=== PATIENT | male | born 1970 | race Two or more races ===

== ENCOUNTER → 2016-04-20 | Outpatient (CLI) | payer MEDICAID ==
[~2016-04-20] MED LIST: ADVIL200 MG PO; ALDACTONE25 MG PO; ALEVE220 MG PO; ATIVAN 1 MG1 MG PO; BACTRIM 400-801 EACH PO; BUMEX1 MG PO; CALCITRATE + V1 EACH PO; CELLCEPT500 MG PO; CIPRO500 MG PO; CITRACAL950 MG PO; COLACE100 MG PO; COREG6.25 MG PO; DELTASONE5 MG PO; DULCOLAX5 MG PO; ENULOSE UD L30 ML/EA PO; HYDRODIURIL25 MG PO; INDERAL20 MG PO; K-TAB ER20 MEQ PO; LASIX20 MG PO; LASIX40 MG PO; LIDOCAINE 5% PATCH TOP; METOCLOPRAMIDE H5 MG PO; MIRALAX PO527 GM/BOT PO; NORVASC10 MG PO; NYSTATIN100000 UNI PO; OSCAL500 MG PO; OXYCODONE HCL5 MG PO; PERCOCET 5-3251 EACH PO; PROGRAF 1MG CAPS1 MG PO; PROGRAF5 MG PO; PROTONIX40 MG PO; TUMS REGULAR ST1 TAB PO; TYLENOL EXTRA500 MG PO; VANCOCIN HCL125 MG PO; ZOFRAN4 MG PO; ZOVIRAX400 MG PO
== END | disposition disaster alternative care site (69) ==
LOC: GAMB 09:54
DX: R41.82 Altered mental status, unspecified (principal); K76.9 Liver disease, unspecified; R18.8 Other ascites; R17 Unspecified jaundice; R60.0 Localized edema
CPT/HCPCS: A0425; A0427; J3411

== ENCOUNTER 2016-05-19 05:08 | Inpatient (IN) | payer MEDICAID ==
[~2016-05-19] VITALS: Ht 182.9 cm; Wt 89.1 kg
--- NOTE | ~2016-05-19 | HP ---
PATIENT'S NAME: STACEY DAVID [facility] AGE: 45 Y [address] ROOM: [place] [address] [place] [facility] [place] DATE: 05/19/2016 History & Physical DISCHARGE DATE: FAMILY PHYSICIAN: Onesimo Castellon MD ATTENDING PHYSICIAN: HOMA BAÑUELOS DATE OF SERVICE: CHIEF COMPLAINT: Abdominal pain and increased swelling. HISTORY OF PRESENT ILLNESS: A 45-year-old gentleman with a past medical history of end-stage liver disease secondary to hepatitis C, treated in the past with Elvis, status post TIPS procedure, who gets multiple paracentesis for ascites, presented to the emergency department this morning with back pain which he states it is in the lumbar region and describes that he gets it whenever he is having more abdominal distention. He does state that he had dull abdominal pain, not associated with any fever or chills. He denied having any shortness of breath, any chest pain, any burning on urination. He did complain that he had not moved his bowels for last 3 days now despite being on lactulose. He did note that he got 2 units of transfusions of packed red blood cells on Thursday for low hemoglobin level. I was not able to verify these records. He said it was done in the recovery room. He denied having any hematemesis or dark tarry stools in the last couple of days. REVIEW OF SYSTEMS: All other systems reviewed and were negative except what is mentioned in the HPI. PAST MEDICAL HISTORY: 1. Cirrhosis. 2. End-stage liver disease. 3. Hepatitis C, treated. 4. Esophageal varices. 5. History of hepatic encephalopathy. MEDICATIONS: Being reconciled right now. ALLERGIES: THE PATIENT IS ALLERGIC TO HEPARIN, CAUSES THROMBOCYTOPENIA. SOCIAL HISTORY: Former alcohol, cocaine, and marijuana user. No ongoing toxic habits. PATIENT'S NAME: JOANN [facility] AGE: 45 Y [address] ROOM: [place] [id number] [place] [facility] [place] DATE: 05/19/2016 History & Physical DISCHARGE DATE: FAMILY PHYSICIAN: Onesimo Castellon MD ATTENDING PHYSICIAN: HOMA BAÑUELOS FAMILY HISTORY: Mother had cardiovascular disease. Father had high blood pressure. PAST SURGICAL HISTORY: Status post TIPS. PHYSICAL EXAMINATION: VITAL SIGNS: 110/67, 16, afebrile, 72. GENERAL: No acute distress. Alert and oriented x3. HEENT: Head atraumatic, normocephalic. Eyes, nonicteric. No pallor. Oropharynx, moist mucous membranes. CARDIOVASCULAR: S1 and S2. No murmurs, gallops, or rubs. LUNGS: Clear to auscultation bilaterally. ABDOMEN: Soft, distended, and nontender. Bowel sounds are present. Shifting dullness as well as fluid thrill noted. EXTREMITIES: Did reveal +1 extremity edema. NEUROLOGIC: Cranial nerves 2 through 12 intact. No motor or sensory deficits. PSYCHIATRIC: Normal affect, mood, and speech. LABORATORY DATA: Lab work done in the emergency department revealed a hemoglobin of 6.9, WBC count of 6.8, and platelets of 114. BUN 16, creatinine 0.9, sodium 130, potassium 4.1, chloride 100, bicarb of 19, and calcium 7.4. AST 69, ALT 53, alkaline phosphatase is 93, and total bilirubin is 2.6. INR is 1.3 today. ASSESSMENT AND PLAN: 1. Ascites. 2. Decompensated liver disease. 3. Cirrhosis secondary to hepatitis C. 4. Hyponatremia. 5. Hypertension. 6. History of hepatic encephalopathy. PLAN: We are going to admit this patient to [facility]. We already did paracentesis with draining of 5200 mL of clear straw-colored fluid, that have been sent to the lab for lab work. He has been started on albumin 50 g 1-time dose as well as Rocephin for history of spontaneous bacterial peritonitis. We will repeat H and H to ensure stabilization of hemoglobin. Continue lactulose to titrate bowel movements 2-3. SCDs for DVT prophylaxis. Low-sodium diet. Restart home medications once reconciled. The patient is full code. PATIENT'S NAME: STACEY DAVID [facility] AGE: 45 Y [address] ROOM: [address] [address] [place] [facility] [place] DATE: 05/19/2016 History & Physical DISCHARGE DATE: FAMILY PHYSICIAN: Onesimo Castellon MD ATTENDING PHYSICIAN: HOMA BAÑUELOS MD AKANKSHA SÁNCHEZ/carlo /[id number] D: [id number] T: [id number] HISTORY & PHYSICAL
--- NOTE | ~2016-05-19 | ER ---
PATIENT'S NAME: STACEY DAVID [facility] AGE: 45 Y [address] ROOM: [address] [address] LOCATION: [facility] [place] ADMIT DATE: 05/19/2016 ER/Outpatient Report DISCHARGE DATE: FAMILY PHYSICIAN: Onesimo Castellon MD ATTENDING PHYSICIAN: HOMA MCDUFFIE ADDENDUM: The patient was initially seen and evaluated by Dr. Dailey, please see his dictation for complete details of the HPI and full physical exam. I briefly examined the patient, reviewed the history with him. He has been having worsening abdominal pain since he received 2 units of blood on Thursday for anemia. He has a history of ascites secondary to cirrhosis. He states he has been taking his lactulose. He has been vomiting a little blood and he has had decreased appetite. The patient's labs have returned with an LDH of 317, lipase of 165, hem-occult positive. Sodium of 130, potassium 4.1, chloride of 100, CO2 is 19, BUN is 16, creatinine 0.9. GFR is greater than 60. LFTs; total bilirubin of 2.6, alkaline phosphatase of 9.3, AST is 69, ALT of 53, WBCs of 6.8, hemoglobin 6.9, and platelets of 114. INR is 1.3. ASSESSMENT: The patient has ascites based on bedside exam and ultrasound. He also has acute blood loss versus hemolytic anemia. He was given morphine for pain via IV. Based on his multiple active issues, apparent hypovolemia with what appears to be symptomatic anemia and need for paracentesis, we will admit him to the hospital to facilitate further workup of the acute anemia and further stabilization of that in addition to paracentesis. The patient will be admitted to Dr. Mcduffie for those procedures. Please refer to his dictation for further information regarding the patient's course of care. He was otherwise stable and admitted without further issue. MD JORGE WOLFE/carlo /[id number] d: 05/19/16 1301 t: 05/26/16 2342, OUTPATIENT REPORT
--- NOTE | ~2016-05-19 | DS ---
PATIENT'S NAME: STACEY DAVID [facility] AGE: 45 Y [address] ROOM: [address] [address] [place]: [facility] [place] ADMIT DATE: 05/19/2016 Discharge Summary DISCHARGE DATE: 05/21/2016 FAMILY PHYSICIAN: Onesimo Castellon MD ATTENDING PHYSICIAN: Nicole Guzman CONSULTING PHYSICIAN: Dr. Jeter. DISCHARGE DIAGNOSES: 1. End-stage liver disease with ascites. 2. 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 3. Vaqmf-vv-mpsdcdf blood loss. 4. History of esophageal varices. 5. Loose stools. DISCHARGE MEDICATIONS: 1. Rocephin 1 g IV daily. 2. Lasix 40 mg p.o. b.i.d. 3. Lactulose 30 mL p.o. q.6 h. 4. Protonix 40 mg p.o. daily. 5. Potassium chloride 20 mEq p.o. daily. 6. Inderal 20 mg p.o. daily. 7. Spironolactone 200 mg p.o. daily. 8. Acetaminophen 1000 mg p.o. q.6 h. p.r.n. pain. 9. Ultram 50 mg p.o. q.6 h. p.r.n. pain. PROCEDURES: The patient underwent abdominal paracentesis on 2 separate occasions. First on 05/19/2016 when 5200 mL of clear straw-colored fluid was removed and again on 05/20/2016 when 3700 mL of dark carlos manuel fluid was aspirated. RADIOLOGIC DATA: The patient did undergo a hepatic duplex TIPS evaluation ultrasound on 05/19/2016, this did show at the distal end of the TIPS shunt where it joins the hepatic vein, velocities were elevated as high as 350 cm/s, consistent with stenosis. BLOOD PRODUCTS ADMINISTERED: The patient was transfused with 3 packed RBCs on 05/19/2016. PERTINENT LABORATORY DATA: The patient's hemoglobin upon admission was 6.9, this trended down to 5.1, at which 3 units of packed RBCs were transfused. On the day of transfer, the patient's hemoglobin was 8.2. Platelets upon admission were 114 and dropped to 46 on 05/20/2016. HOSPITAL COURSE: Please refer to the admitting H and P by Dr. Mcduffie for more detailed outline. The patient was admitted to the Medical/Surgical Unit after PATIENT'S NAME: STACEY DAVID [facility] AGE: 45 Y [address] ROOM: [id number] [place], [place] [address] LOCATION: [facility] [place] ADMIT DATE: 05/19/2016 Discharge Summary DISCHARGE DATE: 05/21/2016 FAMILY PHYSICIAN: Onesimo Castellon MD ATTENDING PHYSICIAN: Nicole Guzman undergoing a paracentesis in the ER. He was started on Rocephin for coverage for spontaneous bacterial peritonitis. Hemoglobins were monitored as stated above. Lactulose was continued to try to titrate bowel movements. The patient was placed on sequential compression devices for DVT prophylaxis. The patient's peritoneal fluid had showed no growth at 2 days. Bacteria not observed in the Gram stain. The patient had relief following the initial paracentesis in the ER. The following morning, the patient complained of feeling taunt and distended again. The patient had reaccumulation of his ascites quite quickly. At that point, GI was on-board and recommended the ultrasound to monitor for the TIPS procedure. This showed the stenosis. The patient underwent a repeat paracentesis for palliation of his discomfort. The patient also had transfusion of 3 packed RBCs. Arrangements were made for the patient to be transferred to [facility] to be evaluated by the hepatic team there and for consideration of a revision of his TIPS procedure. The patient was unable to be transferred on 05/20/2016 unfortunately due to bed shortages. The patient was able to be transferred on 05/21/2016. The receiving physician Dr. Segundo graciously accepted the patient. We will send along the appropriate records. The patient was transferred via ambulance on 05/21/2016. The patient was hemodynamically stable at the time of transfer. Discharge of this patient took greater than 30 minutes and took phone calls for coordination of cares by multiple disciplinary team. DAVIS CASTELLANO PA-C FOR MD JANETTE SHI/carlo /[id number] d: 05/22/16 0121 t: 05/26/16 1631, DISCHARGE SUMMARY
--- NOTE | ~2016-05-19 | CON ---
PATIENT'S NAME: STACEY DAVID [facility] AGE: 45 Y [address] ROOM: [address] [address] LOCATION: [facility] [place] ADMIT DATE: 05/19/2016 Consultation DISCHARGE DATE: FAMILY PHYSICIAN: Onesimo Castellon MD ATTENDING PHYSICIAN: HOMA BAÑUELOS DATE OF CONSULTATION: 05/19/2016 REFERRING PHYSICIAN: Nicole Guzman MD REASON FOR CONSULTATION: End-stage liver disease, cirrhosis, and ascites. HISTORY OF PRESENT ILLNESS: This is a pleasant, 45-year-old male with a past medical history of end-stage liver disease secondary to hepatitis C, treated in the past with Harvoni. He also underwent a TIPS procedure in 2014. Most recently, the patient has been seen multiple times in the emergency room as well as inpatient for increasing ascites. The patient is scheduled for liver transplant evaluation, per his recollection, after insurance issues have been sorted out. The patient again was seen in the emergency room with significant pain in his back as well as his lumbar region and abdominal distention. He does state that he has a dull abdominal pain with no associated fever or chills. He denied any shortness of breath or chest pain. He did state that he has been compliant on his medications, specifically lactulose, though has not had a bowel movement for the past 3 days. The patient recently was seen in our clinic and was found to have a hemoglobin of 5.1. Two units of packed red blood cells were given on Thursday. At that time, he denied any hematemesis or dark, tarry, or melenic stool. On admission, the patient's hemoglobin was 6.9 with a hematocrit of 20.8. The patient denies any current chest pain, chest pressure, or shortness of breath. While in the emergency room, he did undergo a paracentesis with 5200 mL of fluid removed. PAST MEDICAL HISTORY: End-stage liver disease; liver cirrhosis; hepatitis C, treated; history of esophageal varices; and history of hepatic encephalopathy. PAST SURGICAL HISTORY: TIPS procedure in 2013. The patient recently underwent an upper endoscopy on April 23, 2016. At that time, the patient was found to have large varices in the mid and distal esophagus with no high-risk stigmata. Proximal esophagus was normal. Esophageal variceal banding was not completed. 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 SOCIAL HISTORY: The patient is a former alcohol, cocaine, and marijuana user. He denies any ongoing toxic habits. The patient previously did have hepatitis C though and PATIENT'S NAME: STACEY DAVID [facility] AGE: 45 Y [address] ROOM: [place] [address] LOCATION: [facility] [place] ADMIT DATE: 05/19/2016 Consultation DISCHARGE DATE: FAMILY PHYSICIAN: Onesimo Castellon MD ATTENDING PHYSICIAN: HOMA BAÑUELOS has completed a round of interferon as well as Harvoni. FAMILY HISTORY: The patient's mother had cardiovascular disease. The patient's father had high blood pressure. ALLERGIES: HEPARIN CAUSES THROMBOCYTOPENIA. CURRENT MEDICATIONS: Please refer to the medication administration record. Significant home medications to include: 1. Spironolactone 200 mg daily. 2. Lasix 80 mg daily. 3. Prophylactic ciprofloxacin 500 mg daily. 4. Lactulose 30 mL 4 times daily. REVIEW OF SYSTEMS: A 10-point review of systems was completed, all were negative except for those identified in the History of Present Illness. PHYSICAL EXAMINATION: GENERAL: A pleasant, 45-year-old male who appears to be in no acute distress. VITAL SIGNS: Temperature 98.5, pulse of 80, respirations of 18, blood pressure 99/58, and oxygen saturation is 96% on room air. SKIN: [place], warm, and dry. No jaundice. HEENT: Head is normocephalic and atraumatic. Pupils are equal, round, and reactive to light. Sclerae are clear, nonicteric. Oral mucosa is pink and moist. No thyromegaly. NECK: Soft and supple. CARDIOVASCULAR: Regular. Normal S1 and S2. RESPIRATORY: Respirations even and unlabored. Lungs clear to auscultation. ABDOMEN: Status post paracentesis. Soft, round, nontender, and nondistended. Bowel sounds positive x4 quadrants. MUSCULOSKELETAL: No muscle weakness or atrophy. EXTREMITIES: No clubbing or cyanosis. 1+ trace edema noted to bilateral lower extremities. NEUROLOGICAL: Grossly nonfocal. Negative for flap. LABORATORY AND DIAGNOSTIC DATA: White blood cell count of 6.8, hemoglobin of 6.9, and hematocrit of 20.8. The patient did have a recheck of his hemoglobin today with a decrease to 5.1 and hematocrit of 15.7. Platelets are 114. Chemistry panel includes a glucose of 89, BUN of 16, creatinine 0.9, sodium 130, potassium of 4.1, chloride of 100, and CO2 of 19. Albumin of 2.0. AST of 69, ALT of 53, and alkaline PATIENT'S NAME: STACEY DAVID [facility] AGE: 45 Y [address] ROOM: [address] [address] LOCATION: [facility] [place] ADMIT DATE: 05/19/2016 Consultation DISCHARGE DATE: FAMILY PHYSICIAN: Onesimo Castellon MD ATTENDING PHYSICIAN: HOMA BAÑUELOS A phosphatase of 93. Total bilirubin of 2.6. Prothrombin time 14.0, INR is 1.3, and PTT of 34. ASSESSMENT AND PLAN: Again, this is a pleasant, 45-year-old male who is well known to our Gastroenterology Services with end-stage liver disease secondary to previous alcoholic as well as hepatitis C. the patient also is status post TIPS procedure. 1. Anemia. The patient recently was seen in our clinic with a hemoglobin of 5.1. The patient was transfused 2 units of blood 3 days ago. The patient presented to the emergency room with an acute drop of his hemoglobin to 5.1. He will be receiving 2 units of packed red blood cells. The patient also recently underwent an upper endoscopy that did show large esophageal varices. An upper endoscopy may be warranted, though this is likely related to acute blood loss from his gastric antral vascular ectasias. 2. End-stage liver disease. The patient will be placed on a 2-g sodium diet. Continued monitoring of his laboratory is warranted. The patient's MELD sodium score is 19 with a MELD of 13. The patient will be continued on his diuretics. 3. Ascites. The patient is status post paracentesis with 5200 mL drained off while being evaluated in the emergency room. We will also be ordering an abdominal ultrasound with Dopplers for verification of TIPS patency. The patient again will be continued on his diuretics and monitored closely. Further recommendations to be given status post TIPS procedure of whether an upper endoscopy is warranted at this time versus interventional radiology evaluation of the TIPS shunt. Thank you for this consult and allowing us to participate in the care of this patient. We will continue to monitor, evaluate, and treat as appropriate. ALAYNA GARCIA APRN FOR LACEY WAHL MD MMF/modl /[id number] d: 05/20/16 1412 t: 05/23/16 1140, CONSULTATION REPORT
--- NOTE | ~2016-05-19 | ER ---
PATIENT'S NAME: [facility]AS [facility] AGE: 45 Y [address] ROOM: [address] [address] [place] [facility] [place]MIT DATE: 05/19/2016 ER/Outpatient Report DISCHARGE DATE: 05/21/2016 FAMILY PHYSICIAN: Onesimo Castellon MD ATTENDING PHYSICIAN: Ivana Mcduffie Time of Arrival: 0522 hours. Time of Evaluation: 0533 hours. CHIEF COMPLAINT: Ascites. HISTORY OF PRESENT ILLNESS: The patient is a 45-year-old male with history of end-stage liver disease who presents to the emergency department today with ascites. He reports that he was supposed to make an appointment with Dr. Lao to be seen for being tapped regularly. However, he was unable to because he was too sick to do it. He presents that he has had some increased weakness today. He did receive 2 units of hemoglobin on Thursday. The patient denies any fevers or chills. No nausea or vomiting. No diarrhea or constipation. Denies any urinary frequency, urgency, or painful urination. PAST MEDICAL HISTORY: End-stage liver disease; cirrhosis; hepatitis C, treated; esophageal varices; history of hepatic encephalopathy. PAST SURGICAL HISTORY: TIPS procedure in 2013, recent upper endoscopy 04/23/2016. He was found to have a large varices in the mid and distal esophagus. SOCIAL HISTORY: The patient has a history of former alcohol, cocaine, and marijuana use. FAMILY HISTORY: Cardiovascular disease. Father with high blood pressure. ALLERGIES: HEPARIN, WHICH CAUSES THROMBOCYTOPENIA. MEDICATIONS: Please see list. REVIEW OF SYSTEMS: All systems are reviewed by myself and are negative with the exception of those discussed in HPI and past medical history. PHYSICAL EXAMINATION: PATIENT'S NAME: [facility] AGE: 45 Y [address] ROOM: [address] [address] [place] [facility] [place] ADMIT DATE: 05/19/2016 ER/Outpatient Report DISCHARGE DATE: 05/21/2016 FAMILY PHYSICIAN: Onesimo Castellon MD ATTENDING PHYSICIAN: Ivana Mcduffie VITAL SIGNS: Weight 95.6 kg, blood pressure 126/69, pulse 88, respiratory rate 19, temperature 97.6, oxygen saturation 99% on room air. GENERAL: The patient is a 45-year-old male, who appears in stated age, in no acute distress. HEENT: Normocephalic. Conjunctivae are pale. NECK: Supple. There is no nuchal rigidity. CARDIOVASCULAR: Regular rate and rhythm. No murmurs, rubs, or gallops. LUNGS: Clear to auscultation bilaterally. No wheezes, rales, or rhonchi. ABDOMEN: Distended with fluid wave. Positive bowel sounds. Mild diffuse tenderness to palpation. MUSCULOSKELETAL: The patient ambulates in the room. Moves all 4 extremities. SKIN: Warm and dry. LABORATORY DATA AND X-RAYS: Pending at the time of transfer of care. IMPRESSION: 1. Ascites with history of end-stage renal disease. 2. Please see Dr. Vallecillo's dictation. EMERGENCY DEPARTMENT COURSE: The patient was brought back to the examination room. He was seen and evaluated by myself. IV is established. Laboratory analysis and imaging are obtained and are pending at the time of transfer of care. I did discuss the case with Dr. Vallecillo. He will follow up on laboratory analysis and disposition. DISPOSITION/FOLLOW-UP: Per Dr. Vallecillo. DO CAROLYNE CLAY/carlo /[id number] d: 05/24/16 0824 t: 05/24/16 1311, OUTPATIENT REPORT
[~2016-05-19 05:08] MED LIST changes: -ATIVAN 1 MG1 MG PO; -BACTRIM 400-801 EACH PO; -BUMEX1 MG PO; -CALCITRATE + V1 EACH PO; -CELLCEPT500 MG PO; -CITRACAL950 MG PO; -COLACE100 MG PO; -COREG6.25 MG PO; -DELTASONE5 MG PO; -DULCOLAX5 MG PO; -HYDRODIURIL25 MG PO; -LASIX20 MG PO; -LIDOCAINE 5% PATCH TOP; -MIRALAX PO527 GM/BOT PO; -NORVASC10 MG PO; -NYSTATIN100000 UNI PO; -OSCAL500 MG PO; -OXYCODONE HCL5 MG PO; -PROGRAF 1MG CAPS1 MG PO; -PROGRAF5 MG PO; -VANCOCIN HCL125 MG PO; -ZOFRAN4 MG PO; -ZOVIRAX400 MG PO
[2016-05-19 05:54] LABS: BASOPHIL % 0.4 %; EOSINOPHIL # 0.1 K/uL (0.0-0.5); EOSINOPHIL % 0.7 %; HEMATOCRIT 20.8 % (37.0-53.0); IMMATURE GRANULOCYTE % 0.3 %; LYMPHOCYTE # 1.4 K/uL (0.8-4.0); LYMPHOCYTE % 20.9 %; MONOCYTE # 1.3 K/uL (0.0-1.0); MONOCYTE % 18.8 %; MPV 12.3 fl (9.4-12.4); NEUTROPHIL % 58.9 %; NRBC % 0 /100WBC (0-0.00); RBC 2.31 M/uL (4.00-6.00); WBC 6.8 K/uL (4.0-11.0)
[2016-05-19 05:56] LABS: HEMOGLOBIN 6.9 g/dL (12.0-17.0); MCH 29.9 pg (27.0-34.0); MCHC 33.2 gm/dL (32.0-36.5); PLATELET COUNT 114 K/uL (150-450)
[2016-05-19 06:08] LABS: INR - (THERAPEUTIC) 1.3 (0.9-1.1); PTT 34 SECONDS (25-32)
[2016-05-19 06:13] LABS: ALK PHOS 93 IU/L (33-138); ALT 53 IU/L (12-78); ANION GAP 15.1 (10.0-19.0); AST 69 IU/L (10-40); BLOOD UREA NITROGEN 16 mg/dL (6-24); CHLORIDE 100 mMol/L (96-110); CO2 19 mMol/L (22-32); CREATININE 0.9 mg/dL (0.6-1.3); ESTIMATED GFR (MDRD EQUATION) > 60; POTASSIUM 4.1 mMol/L (3.7-5.1); SODIUM 130 mMol/L (135-145)
[2016-05-19 06:14] LABS: CALCIUM 7.4 mg/dL (8.5-10.5); TOTAL PROTEIN 4.7 g/dL (6.0-8.4)
[2016-05-19 06:15] LABS: TOTAL BILIRUBIN 2.6 mg/dL (0.0-1.5)
--- NOTE | 2016-05-19 09:33 | NUR ---
Pt is 45 y/o male admit for acute blood loss,abd pain,ascites for hospitalist. Pt alert and oriented x3. Adverse reaction to Heparin-thrombocytopenia. Red bracelet/yellow on. Pt resides at home with his girlfriend. Hx cirrhosis,ETOH abuse-states he stopped drinking over 10 yrs ago,dizziness,weakness,migraines, Hep C-tx'd,htn,edema,palpitations,ascites,esophageal varices,depression, anxiety. States he gets N/V with ascites and recently has had dark stools. Stools hematest positive. Pt just here last Thursday for a blood transfusion.
[2016-05-19] MEDS ORDERED: TYLENOL EXTRA500 MG PO (09:47)
[2016-05-19 12:34] LABS: HEMATOCRIT 15.7 % (37.0-53.0); HEMOGLOBIN 5.1 g/dL (12.0-17.0)
--- NOTE | 2016-05-19 17:29 | NUR ---
AAOx3. Cooperative with cares. Hgb 5.1. Transfusing 2 units PRBCs. H/H recheck @1900. Low sodium diet. U/S to check TIPS patency this afternoon. Tapped for 5200ml in ER this a.m. Intermittent IV ABx. Gave 500ml 5% Albumin on floor. PIV to LFA and LAC, both GBR. Up w/assist for low Hgb.
[2016-05-19 18:53] LABS: HEMATOCRIT 18.2 % (37.0-53.0)
[2016-05-19 18:57] LABS: HEMOGLOBIN 6.1 g/dL (12.0-17.0)
--- NOTE | 2016-05-20 03:34 | NUR ---
Significant Event: Pt is alert and oriented. VSS on RA. Ambulates per 1 assist/gaitbelt. Regular diet. Pt's abdomen is distented and tight. Zofran given with some relief. 2 units of blood given this shift, will check labs in a.m. IV to the L)AC and L)FA both SL. Follow Up: Continue to monitor.
[2016-05-20 06:04] LABS: BASOPHIL % 0.7 %; EOSINOPHIL # 0.1 K/uL (0.0-0.5); EOSINOPHIL % 3.6 %; HEMOGLOBIN 8.4 g/dL (12.0-17.0); IMMATURE GRANULOCYTE % 0.4 %; LYMPHOCYTE # 0.6 K/uL (0.8-4.0); LYMPHOCYTE % 20.9 %; MCH 29.7 pg (27.0-34.0); MCV 86.9 fl (83.0-98.0); MONOCYTE # 0.4 K/uL (0.0-1.0); MONOCYTE % 15.5 %; MPV 12.1 fl (9.4-12.4); NEUTROPHIL # (ANC) 1.6 K/uL (1.4-9.0); NEUTROPHIL % 58.9 %; NRBC % 0 /100WBC (0-0.00); RBC 2.83 M/uL (4.00-6.00); RDW-CV 16.1 % (11.9-14.6); WBC 2.8 K/uL (4.0-11.0)
[2016-05-20 06:05] LABS: HEMATOCRIT 24.6 % (37.0-53.0); MCHC 34.1 gm/dL (32.0-36.5); PLATELET COUNT 46 K/uL (150-450)
[2016-05-20 06:12] LABS: INR - (THERAPEUTIC) 1.5 (0.9-1.1); PROTIME 15.7 SECONDS (9.6-11.1)
[2016-05-20 06:29] LABS: ALBUMIN 2.6 gm/dL (3.5-5.0); ALK PHOS 76 IU/L (33-138); ALT 40 IU/L (12-78); ANION GAP 15.2 (10.0-19.0); AST 53 IU/L (10-40); BLOOD UREA NITROGEN 9 mg/dL (6-24); CHLORIDE 100 mMol/L (96-110); CO2 19 mMol/L (22-32); CREATININE 0.7 mg/dL (0.6-1.3); ESTIMATED GFR (MDRD EQUATION) > 60; POTASSIUM 4.2 mMol/L (3.7-5.1); SODIUM 130 mMol/L (135-145)
[2016-05-20 06:30] LABS: CALCIUM 7.1 mg/dL (8.5-10.5); TOTAL BILIRUBIN 5.3 mg/dL (0.0-1.5); TOTAL PROTEIN 4.6 g/dL (6.0-8.4)
--- NOTE | 2016-05-20 10:30 | NUR ---
RECEIVED REFERRAL THAT PATIENT WILL BE GOING TO [facility] TODAY IF THEY HAVE A BED. DR KING NOTIFIED [facility] AND SPOKE TO DR. COLEY WHO HAS ACCEPTED PATIENT BUT THEY DO NOT HAVE ANY BEDS TODAY AT [facility], THEY ANTICIPATE THAT THEY MAY HAVE A BED TOMORROW. WILL CONTACT [facility] TOMORROW MORNING TO SEE IF THEY HAVE A BED. I NOTIFIED [facility] AND INFORMED THEM OF THE POSSIBLE TRANSFERE TO [facility] TOMORROW. WILL CONT TO FOLLOW NEEDED.
[2016-05-20 17:25] LABS: HEMATOCRIT 25.8 % (37.0-53.0); HEMOGLOBIN 8.5 g/dL (12.0-17.0)
--- NOTE | 2016-05-20 17:54 | NUR ---
AAOx3. Cooperative with cares. Up w/SBA. Showered this afternoon. Had paracentesis w/3700ml off this afternoon. Low sodium diet, but having small amounts of ice and popsicles. Gave Albumin today. Intermittent Abx. Reported moderate BM. Voiding well. VSS, some meds help for SBP<110. Plan is to transfer to [facility] when bed available. Hgb 8.5 @1700.
--- NOTE | 2016-05-21 02:59 | NUR ---
Significant Event: Pt is alert and oriented. VSS on RA. IV to the L)fa and AC both SL. Ambulates standby assist. Low sodium diet, has been eating light as to not upset his stomach more as it seems to be tighter the more he eats. Pt has been reporting loose stools, told pt to not flush so I could observe. Pt will go to [facility] when bed becomes available. Follow Up: Continue to monitor.
[2016-05-21 05:34] LABS: HEMATOCRIT 24.8 % (37.0-53.0); HEMOGLOBIN 8.2 g/dL (12.0-17.0)
[2016-05-21 05:43] LABS: INR - (THERAPEUTIC) 1.5 (0.9-1.1); PROTIME 15.7 SECONDS (9.6-11.1)
[2016-05-21 05:49] LABS: ALBUMIN 2.6 gm/dL (3.5-5.0); ANION GAP 11.9 (10.0-19.0); BLOOD UREA NITROGEN 7 mg/dL (6-24); CHLORIDE 104 mMol/L (96-110); CO2 21 mMol/L (22-32); CREATININE 0.8 mg/dL (0.6-1.3); ESTIMATED GFR (MDRD EQUATION) > 60; MAGNESIUM 2.6 mg/dL (1.3-2.6); PHOSPHORUS 2.7 mg/dL (2.5-4.9); POTASSIUM 3.9 mMol/L (3.7-5.1); SODIUM 133 mMol/L (135-145)
[2016-05-21 05:50] LABS: CALCIUM 7.1 mg/dL (8.5-10.5)
--- NOTE | 2016-05-21 08:30 | NUR ---
NOTIFIED [facility] AND SPOKE TO DOT LAYTON WHO IS THE BED CORDNATOR. SHE TELLS ME THAT THEY HAVE 27 PEOPLE ON THE WAITING LIST TO BE ADMITTED AND THAT SHE IS NOT SURE WHEN THEY WILL HAVE A BED FOR STACEY. SHE TELLS ME THAT IT MAY BE LATER THIS PM. SHE WILL CONTACT US ONCE THEY HAVE A BED.
--- NOTE | 2016-05-21 11:30 | NUR ---
PER GIOVANNI WHO IS CHARGE SHE TELLS ME THAT SHE RECEIVED CALL FROM DOT CALHOUN THE DRIVER SERVICE TECHNICIAN AT [facility] AND THEY HAVE A BED FOR STACEY AND WE CAN SEND HIM ANY TIME. I NOTIFIED [place] WITH [facility] AND SHE WILL ARRANGE FOR AN AMBULANCE CREW TO COME AND GET STACEY. I SPOKE TO PATIENT AND HIS S.O. AT THE BEDSIDE AND UPDATED THEM. THEY ARE IN AGREEMENT OF STACEY GOING TO [facility]. PATIENT WILL BE GOING TO THE [place] SIDE AND HIS S.O. HAS THE UPDATED INFO. DR. KING WAS AT THE BEDSIDE EARILER AND UPDATED WELL. PATIENT DENIES ANY QUESTIONS OR CONCERNS GOING TO [facility]. GIOVANNI HAS THE NURSE TO NURSE CONTACT NUMBER AND THE ROOM NUMBER THAT PATIENT WILL BE GOING TO.
--- NOTE | 2016-05-21 11:56 | NUR ---
CALL RECIEVED FROM DOT CALHOUN AT [facility]. BED AVAILABLE, DR COLEY ACCEPTING. ROOM 8886 BED 2, [facility]. NURSE TO NURSE CALL NUMBER [phone]. CL IN ER [facility]ATED EMS TRANSFER, MELITA CREW ON THEIR WAY. PT ACCEPTS TRANSFER.
--- NOTE | 2016-05-21 12:12 | NUR ---
PT. ALERT/ORIENTED AND UP AD ALYSON. ON LACTULOSE AND HAVING LOOSE STOOLS. HX HEPATITIS C, SEVERAL PARACENTESIS AND ABDOMINAL ASCITES, HX OF ALCOHOLISM, DEPRESSION, ANEMIA, THROMBOCYTOPENIA, HYPONATREMIA AND ABDOMINAL PAIN, END STAGE LIVER DISEASE. EATING ONLY SMALL AMOUNTS OF DIET, DENIES NAUSEA OR PAIN TODAY. LOW SODIUM DIET. PLAN TO TRANSFER TO [facility] TODAY PER [facility]. VOIDING W/O DIFFICULTY.
--- NOTE | 2016-05-21 13:22 | NUR ---
PT. A/O AND DENIES PAIN. UP AD ALYSON IN ROOM. [facility] CREW HERE WITH CART. PT UP TO BR TO VOID AND TRANSFERRED WITH AMBULANCE CREW AND MOTHER TO [facility] AT 1300
[2016-07-08] MEDS ORDERED: OSCAL500 MG PO (17:52)
[2016-07-08] MEDS ORDERED: ENULOSE UD L30 ML/EA PO (17:54)
[2016-07-08] MEDS ORDERED: ALDACTONE25 MG PO (17:55)
[2016-07-08] MEDS ORDERED: PROTONIX40 MG PO (17:55)
[2016-07-08] MEDS ORDERED: LASIX20 MG PO (17:55)
[2016-07-08] MEDS ORDERED: CIPRO500 MG PO (17:56)
[2016-07-08] MEDS ORDERED: ZOFRAN4 MG PO (17:56)
== END 2016-05-21 12:55 | disposition hospice, home (50) | DRG 432 ==
LOC: GMED 05:08 → GMSU 07:48
PROVIDERS: Emergency Medicine; Internal Medicine; Internal Medicine Gastroenterology; Physician Assistant; ADMIT Internal Medicine
PROC: 0W9G3ZZ Drainage of Peritoneal Cavity, Percutaneous Approach (ICD-10-PCS; principal; 2016-05-19)
PROC: 30233N1 Transfusion of Nonautologous Red Blood Cells into Peripheral Vein, Percutaneous Approach (ICD-10-PCS; principal; 2016-05-19)
PROC: 0W9G3ZZ Drainage of Peritoneal Cavity, Percutaneous Approach (ICD-10-PCS; 2016-05-20)
DX: K74.60 Unspecified cirrhosis of liver (principal); I85.11 Secondary esophageal varices with bleeding; K72.90 Hepatic failure, unspecified without coma; R18.8 Other ascites; T85.698A Other mechanical complication of other specified internal prosthetic devices, implants and grafts, initial encounter; E87.1 Hypo-osmolality and hyponatremia; D62 Acute posthemorrhagic anemia; I10 Essential (primary) hypertension; F32.9 Major depressive disorder, single episode, unspecified; F41.9 Anxiety disorder, unspecified; Z88.8 Allergy status to other drugs, medicaments and biological substances; Z79.2 Long term (current) use of antibiotics; Z79.899 Other long term (current) drug therapy; Z86.19 Personal history of other infectious and parasitic diseases
CPT/HCPCS: J0696; J2001; J2175; J2270; J2405; J7040; J7050; P9016; P9045

== ENCOUNTER → 2016-05-30 | Outpatient (CLI) | payer MEDICAID ==
[~2016-05-30] MED LIST changes: +ATIVAN 1 MG1 MG PO; +BACTRIM 400-801 EACH PO; +BUMEX1 MG PO; +CALCITRATE + V1 EACH PO; +CELLCEPT500 MG PO; +CITRACAL950 MG PO; +COLACE100 MG PO; +COREG6.25 MG PO; +DELTASONE5 MG PO; +DULCOLAX5 MG PO; +HYDRODIURIL25 MG PO; +LASIX20 MG PO; +LIDOCAINE 5% PATCH TOP; +MIRALAX PO527 GM/BOT PO; +NORVASC10 MG PO; +NYSTATIN100000 UNI PO; +OSCAL500 MG PO; +OXYCODONE HCL5 MG PO; +PROGRAF 1MG CAPS1 MG PO; +PROGRAF5 MG PO; +VANCOCIN HCL125 MG PO; +ZOFRAN4 MG PO; +ZOVIRAX400 MG PO
== END | disposition disaster alternative care site (69) ==
LOC: GRAD 14:41
PROC: 0W9G3ZZ Drainage of Peritoneal Cavity, Percutaneous Approach (ICD-10-PCS; principal; 2016-05-30)
DX: R18.8 Other ascites (principal)
CPT/HCPCS: J2001; P9047

== ENCOUNTER → 2016-06-04 | Outpatient (CLI) | payer MEDICAID | END | disposition disaster alternative care site (69) | LOC: GPOC 06-03 11:00 → GOPD → GPOC 11:37 | PROC: 0W9G3ZZ Drainage of Peritoneal Cavity, Percutaneous Approach (ICD-10-PCS; principal; 2016-06-04) | DX: R18.8 Other ascites (principal) | CPT/HCPCS: J2001; P9047 ==

== ENCOUNTER → 2016-06-09 | Outpatient (CLI) | payer MEDICAID | END | disposition disaster alternative care site (69) | LOC: GRAD 12:04 | PROC: 0W9G3ZZ Drainage of Peritoneal Cavity, Percutaneous Approach (ICD-10-PCS; principal; 2016-06-09) | DX: R18.8 Other ascites (principal) | CPT/HCPCS: J2001; P9047 ==

== ENCOUNTER 2016-06-12 07:26 | Emergency (ER) | payer MEDICAID ==
--- NOTE | ~2016-06-12 | ER ---
PATIENT'S NAME: STACEY DAVID [facility] AGE: 45 Y [address] ROOM: [place], [place] [address] LOCATION: [facility] ADMIT DATE: 06/12/2016 ER/Outpatient Report DISCHARGE DATE: 06/12/2016 FAMILY PHYSICIAN: Onesimo Castellon MD ATTENDING PHYSICIAN: Ap Vallecillo CHIEF COMPLAINT: Headache. HISTORY OF PRESENT ILLNESS: The patient states that about 5:30 a.m., he developed a headache. He has had this before whenever he gets . This is the worst headache he has ever had, but it is equal to a prior worse headache. The onset was rapid, but not thunderclap. Tylenol has helped minimally. The course is unchanging and unrelenting. PAST MEDICAL HISTORY: Documented on the record and reviewed by me. SOCIAL HISTORY: Documented on the record and reviewed by me. MEDICATIONS: Documented on the record and reviewed by me. ALLERGIES: DOCUMENTED ON THE RECORD AND REVIEWED BY ME. REVIEW OF SYSTEMS: All systems are reviewed and negative except as noted in the HPI. PHYSICAL EXAMINATION: VITAL SIGNS: Blood pressure 107/64, pulse 87, respiratory rate is 20, temperature 98.2, and SpO2 is 100% on room air. Pain is rated at 10/10. GENERAL: Age-appropriate male. No obvious distress with mild pain sitting in the exam chair with a hat pulled down over the eyes. NEUROLOGIC: The patient is awake and alert. GCS is 15. No focal deficits or asymmetry on exam. No asterixis is appreciated. The patient has full active and passive range of motion of the neck without difficulty. No photophobia is appreciated. HEENT: Normocephalic, atraumatic. The eyes are PERRL. Extraocular movements are intact. The oropharynx is clear and moist. No erythema or exudates. NECK: Supple. Trachea is midline. HEART: Regular rate and rhythm with no murmurs. LUNGS: Clear to auscultation bilaterally. No rhonchi, wheezes, or rales. PATIENT'S NAME: STACEY DAVID [facility] AGE: 45 Y [address] ROOM: [place], [place] [address] LOCATION: [facility] ADMIT DATE: 06/12/2016 ER/Outpatient Report DISCHARGE DATE: 06/12/2016 FAMILY PHYSICIAN: Onesimo Castellon MD ATTENDING PHYSICIAN: Ap Vallecillo ABDOMEN: Protuberant, but nontender. No masses appreciated. No rebound or guarding. BACK: Nontender to palpation throughout. No CVA tenderness. EXTREMITIES: Warm and well perfused without edema. SKIN: Warm, dry, and intact. LABORATORY DATA AND X-RAYS: CT of the brain is without abnormality per Radiology. WBCs are 3.6, hemoglobin is 8.0, platelets of 84, and INR is 1.3. Sodium is 136, potassium 4.0, chloride 106, CO2 is 23, BUN is 9, and creatinine 0.6. GFR is above threshold. Total bilirubin 1.7. Alkaline phosphatase is 272. AST is 92, ALT is 81. Serum ammonia is 105. IMPRESSION: 1. Headache. 2. Chronic hepatitis with elevated ammonia, without confusion. EMERGENCY DEPARTMENT COURSE: The patient was evaluated as above. He appeared to be mentating well, but had a headache. He was given Compazine, Benadryl, and Toradol for his headache with almost complete resolution of all symptoms. The labs were obtained as well as the CT to make sure that he did not have alternative diagnosis. His ammonia is elevated above lab normal although it is not particularly elevated for him and he is showing no signs of mental status change here in the emergency department. He did take lactulose this morning. He is markedly improving in symptoms in the ER. The CT did not show any evidence of subarachnoid hemorrhage and I do not think that is the case for him today based on his time course. He has no other major risk factors for same. At this time, we will not pursue further evaluation for that issue. We will recommend, he follow up with his primary care providers as needed. He should contact the GI provider on-call tomorrow with further instructions regarding his lactulose. I did speak with on-call commission agent livestock Dr. Karimi to ensure appropriate management and he had no further recommendations other than addition of rifaximin, which the patient cannot afford. The patient will continue taking lactulose and return immediately if there is any worsening of his condition. All questions were answered and the patient was discharged in good condition. MD JORGE WOLFE/cameronl PATIENT'S NAME: SATCEY DAVID [facility] AGE: 45 Y [address] ROOM: [place], [place] [address] LOCATION: [facility] ADMIT DATE: 06/12/2016 ER/Outpatient Report DISCHARGE DATE: 06/12/2016 FAMILY PHYSICIAN: Onesimo Castellon MD ATTENDING PHYSICIAN: Ap Vallecillo /[id number] d: 06/12/16 1244 t: 06/16/16 1732, OUTPATIENT REPORT
[~2016-06-12 07:26] MED LIST changes: -ATIVAN 1 MG1 MG PO; -BACTRIM 400-801 EACH PO; -BUMEX1 MG PO; -CALCITRATE + V1 EACH PO; -CELLCEPT500 MG PO; -CITRACAL950 MG PO; -COLACE100 MG PO; -COREG6.25 MG PO; -DELTASONE5 MG PO; -DULCOLAX5 MG PO; -HYDRODIURIL25 MG PO; -LASIX20 MG PO; -LIDOCAINE 5% PATCH TOP; -MIRALAX PO527 GM/BOT PO; -NORVASC10 MG PO; -NYSTATIN100000 UNI PO; -OSCAL500 MG PO; -OXYCODONE HCL5 MG PO; -PROGRAF 1MG CAPS1 MG PO; -PROGRAF5 MG PO; -VANCOCIN HCL125 MG PO; -ZOFRAN4 MG PO; -ZOVIRAX400 MG PO
[2016-06-12 07:58] LABS: BASOPHIL % 0.8 %; EOSINOPHIL # 0.2 K/uL (0.0-0.5); EOSINOPHIL % 4.2 %; HEMATOCRIT 24.4 % (37.0-53.0); IMMATURE GRANULOCYTE % 0.3 %; LYMPHOCYTE # 0.8 K/uL (0.8-4.0); LYMPHOCYTE % 22.3 %; MCH 28.8 pg (27.0-34.0); MCHC 32.8 gm/dL (32.0-36.5); MCV 87.8 fl (83.0-98.0); MONOCYTE # 0.5 K/uL (0.0-1.0); MONOCYTE % 14.1 %; MPV 12.4 fl (9.4-12.4); NEUTROPHIL # (ANC) 2.1 K/uL (1.4-9.0); NEUTROPHIL % 58.3 %; NRBC % 0 /100WBC (0-0.00); PLATELET COUNT 84 K/uL (150-450); RBC 2.78 M/uL (4.00-6.00); RDW-CV 16.5 % (11.9-14.6); WBC 3.6 K/uL (4.0-11.0)
[2016-06-12 08:10] LABS: INR - (THERAPEUTIC) 1.3 (0.9-1.1); PROTIME 14.3 SECONDS (9.6-11.1); PTT 36 SECONDS (25-32)
[2016-06-12 08:14] LABS: ALBUMIN 2.7 gm/dL (3.5-5.0); ALK PHOS 272 IU/L (33-138); ALT 81 IU/L (12-78); AST 92 IU/L (10-40); BLOOD UREA NITROGEN 9 mg/dL (6-24); CHLORIDE 106 mMol/L (96-110); CO2 23 mMol/L (22-32); CREATININE 0.6 mg/dL (0.6-1.3); ESTIMATED GFR (MDRD EQUATION) > 60; SODIUM 136 mMol/L (135-145)
[2016-06-12 08:18] LABS: CALCIUM 7.3 mg/dL (8.5-10.5); TOTAL BILIRUBIN 1.7 mg/dL (0.0-1.5)
[2016-07-08] MEDS ORDERED: OSCAL500 MG PO (17:52)
[2016-07-08] MEDS ORDERED: ENULOSE UD L30 ML/EA PO (17:54)
[2016-07-08] MEDS ORDERED: PROTONIX40 MG PO (17:55)
[2016-07-08] MEDS ORDERED: ALDACTONE25 MG PO (17:55)
[2016-07-08] MEDS ORDERED: LASIX20 MG PO (17:55)
[2016-07-08] MEDS ORDERED: ZOFRAN4 MG PO (17:56)
[2016-07-08] MEDS ORDERED: CIPRO500 MG PO (17:56)
== END 2016-06-12 09:00 | disposition disaster alternative care site (69) ==
LOC: GMED 07:26
PROVIDERS: Emergency Medicine
DX: R51 Headache (principal); K73.9 Chronic hepatitis, unspecified; E72.20 Disorder of urea cycle metabolism, unspecified
CPT/HCPCS: J0780; J1200; J1885

== ENCOUNTER 2016-06-13 12:37 | Emergency (ER) | payer MEDICAID ==
--- NOTE | ~2016-06-13 | ER ---
PATIENT'S NAME: STACEY DAVID [facility] AGE: 45 Y [address] ROOM: [place] [address] LOCATION: [facility] ADMIT DATE: 06/13/2016 ER/Outpatient Report DISCHARGE DATE: 06/13/2016 FAMILY PHYSICIAN: Onesimo Castellon MD ATTENDING PHYSICIAN: Ap Vallecillo CHIEF COMPLAINT: Recurrent headache and abdominal discomfort. HISTORY OF PRESENT ILLNESS: The patient was in yesterday for headache. He was feeling better and discharged, but his headache never did go away. Yesterday, he went home and it got worse this afternoon and he came back in. He denies any other symptoms such as problems going to the bathroom. He states that his abdomen is more full like he needs to have some fluid drained, like he has had in the past. He denies any other acute issues. He has not had any vomiting with this. He has not had any vision changes associated with this. The headache is in the front, it is aching in nature. Moderate, not severe in intensity. PAST MEDICAL HISTORY: Documented on the record and reviewed by me. SOCIAL HISTORY: Documented on the record and reviewed by me. MEDICATIONS: Documented on the record and reviewed by me. ALLERGIES: DOCUMENTED ON THE RECORD AND REVIEWED BY ME. REVIEW OF SYSTEMS: All systems reviewed and negative except as noted in the HPI. PHYSICAL EXAMINATION: VITAL SIGNS: Blood pressure 121/65, pulse is 90, respiratory rate is 20, temperature 98.3, SpO2 is 96% on room air. GENERAL: Age-appropriate male, in no obvious pain or distress, is sitting on the exam chair. NEUROLOGIC: Awake and alert. GCS is 15. No focal deficits or asymmetry. No confusion. HEENT: Normocephalic, atraumatic. Eyes are PERRL. Oropharynx is clear. NECK: Supple. Trachea is midline. CHEST: Heart is regular rate and rhythm with no murmurs. LUNGS: Clear to auscultation bilaterally with no rhonchi, wheezes, or rales. PATIENT'S NAME: STACEY DAVID [facility] AGE: 45 Y [address] ROOM: [place] [address] LOCATION: [facility] ADMIT DATE: 06/13/2016 ER/Outpatient Report DISCHARGE DATE: 06/13/2016 FAMILY PHYSICIAN: Onesimo Castellon MD ATTENDING PHYSICIAN: Ap Vallecillo ABDOMEN: Round and full with no rebound, guarding, or masses. Not tense. BACK: Nontender to palpation throughout. No CVA tenderness. EXTREMITIES: Warm and well perfused with no edema. SKIN: Warm, dry, and intact. IMAGING: None. LABORATORY DATA: Ammonia is 100. Sodium 137, potassium 4.7, chloride is 107, CO2 is 23, BUN is 15, creatinine is 0.6. GFR is greater than 60. LFTs: Total bilirubin 2.1, alkaline phosphatase of 286. AST of 98, ALT of 88, WBC is 4.2, hemoglobin 7.6, and platelets of 84. IMPRESSION: 1. Headache, persistent. 2. Ascites. EMERGENCY DEPARTMENT COURSE: The patient was evaluated as above. Labs were obtained, generally stable with inappropriate daily fluctuations. I do not think that he has subarachnoid hemorrhage or subdural hemorrhage as he did receive a CT yesterday for same issue with no findings. He felt more abdominal bloating today associated with this. So, I obtained ultrasound-guided paracentesis by IR. They completed their procedure without difficulty and it is noted that it was clear yellow fluid. He is otherwise doing okay. His headache was treated with Compazine, Benadryl, and Decadron, and he had marked improvement with that. Recommend return as needed. MD JORGE WOLFE/cameronl /[id number] d: 06/14/16 0733 t: 06/16/16 1733, OUTPATIENT REPORT
[2016-06-13 13:52] LABS: BASOPHIL % 0.2 %; EOSINOPHIL # 0.1 K/uL (0.0-0.5); EOSINOPHIL % 2.6 %; HEMATOCRIT 23.3 % (37.0-53.0); IMMATURE GRANULOCYTE % 0.2 %; LYMPHOCYTE # 0.8 K/uL (0.8-4.0); LYMPHOCYTE % 17.9 %; MCH 28.9 pg (27.0-34.0); MCHC 32.6 gm/dL (32.0-36.5); MCV 88.6 fl (83.0-98.0); MONOCYTE # 0.6 K/uL (0.0-1.0); MONOCYTE % 14.9 %; MPV 13.1 fl (9.4-12.4); NEUTROPHIL # (ANC) 2.7 K/uL (1.4-9.0); NEUTROPHIL % 64.2 %; NRBC % 0 /100WBC (0-0.00); PLATELET COUNT 84 K/uL (150-450); RBC 2.63 M/uL (4.00-6.00); RDW-CV 16.6 % (11.9-14.6); WBC 4.2 K/uL (4.0-11.0)
[2016-06-13 13:53] LABS: HEMOGLOBIN 7.6 g/dL (12.0-17.0)
[2016-06-13 14:07] LABS: ALBUMIN 2.8 gm/dL (3.5-5.0); ALK PHOS 286 IU/L (33-138); ALT 88 IU/L (12-78); ANION GAP 11.7 (10.0-19.0); AST 98 IU/L (10-40); CALCIUM 7.9 mg/dL (8.5-10.5); CHLORIDE 107 mMol/L (96-110); CO2 23 mMol/L (22-32); CREATININE 0.6 mg/dL (0.6-1.3); ESTIMATED GFR (MDRD EQUATION) > 60; POTASSIUM 4.7 mMol/L (3.7-5.1); SODIUM 137 mMol/L (135-145)
[2016-06-13 14:11] LABS: BLOOD UREA NITROGEN 15 mg/dL (6-24); TOTAL BILIRUBIN 2.1 mg/dL (0.0-1.5)
[2016-07-08] MEDS ORDERED: OSCAL500 MG PO (17:52)
[2016-07-08] MEDS ORDERED: ENULOSE UD L30 ML/EA PO (17:54)
[2016-07-08] MEDS ORDERED: ALDACTONE25 MG PO (17:55)
[2016-07-08] MEDS ORDERED: PROTONIX40 MG PO (17:55)
[2016-07-08] MEDS ORDERED: LASIX20 MG PO (17:55)
[2016-07-08] MEDS ORDERED: CIPRO500 MG PO (17:56)
[2016-07-08] MEDS ORDERED: ZOFRAN4 MG PO (17:56)
== END 2016-06-13 15:54 | disposition disaster alternative care site (69) ==
LOC: GMED 12:37
PROVIDERS: Emergency Medicine
DX: R51 Headache (principal); R18.8 Other ascites
CPT/HCPCS: J0780; J1100; J1200

== ENCOUNTER 2016-06-13 20:25 | Emergency (ER) | payer MEDICAID ==
--- NOTE | ~2016-06-13 | ER ---
PATIENT'S NAME: STACEY DAVID [facility] AGE: 45 Y [address] ROOM: [place] [id number] LOCATION: [facility] ADMIT DATE: 06/13/2016 ER/Outpatient Report DISCHARGE DATE: 06/13/2016 FAMILY PHYSICIAN: Onesimo Castellon MD ATTENDING PHYSICIAN: Kalen Grant Time of Arrival: 2030 hours. Time of Exam: 2030 hours. CHIEF COMPLAINT: Headache. HISTORY OF PRESENT ILLNESS: The patient was seen earlier here today. Did have lab work and a thoracentesis done. He was given Compazine, Benadryl, and Toradol. Did discharge to home, was feeling better. Approximately an hour and half ago, symptoms returned. Denies being nauseated, has not vomited. Has a frontal headache, like he has had in the past. States that his vision has been blurred at times. Has not taken anything at home for his headache. ALLERGIES: NO KNOWN ALLERGIES. CURRENT MEDICATIONS: On his chart and reviewed by me. PAST MEDICAL HISTORY: Includes ascites and hepatitis C. SOCIAL HISTORY: The patient is here with his significant other to help drive him home. REVIEW OF SYSTEMS: All negative other than those mentioned in the HPI. PHYSICAL EXAMINATION: VITAL SIGNS: He weighed 89.9 kg. Blood pressure is 135/75, pulse of 95, respirations 18, temperature of 98.1 tympanic, and O2 saturation was 99% on room air. Charlie Coma Scale is 15. GENERAL: He is awake, alert, and oriented x4. SKIN: [place], warm, and dry. RESPIRATIONS: Even and nonlabored. LUNG: Sounds are clear throughout. HEART: Regular rate and rhythm. EXTREMITIES: He walked in with a steady even gait. Moves all extremities PATIENT'S NAME: STACEY DAVID [facility] AGE: 45 Y [address] ROOM: [place], [place] [address] LOCATION: [facility] ADMIT DATE: 06/13/2016 ER/Outpatient Report DISCHARGE DATE: 06/13/2016 FAMILY PHYSICIAN: Onesimo Castellon MD ATTENDING PHYSICIAN: Kalen Grant strongly and equally. ER COURSE: The patient was given Toradol 30 mg IM, Compazine 10 mg IM, and Benadryl 50 mg IM. IMPRESSION: Headache. PLAN: Home. Rest. Fluids. Continue his current medications. He is to make arrangements to be seen at the [facility] in the morning to discuss recurrence of his headaches. He verbalized understanding. GRETCHEN SHANE APRN FOR MD MELI ALVARENGA/carlo /[id number] d: 06/14/16 0027 t: 06/16/16 1733, OUTPATIENT REPORT
[2016-07-08] MEDS ORDERED: OSCAL500 MG PO (17:52)
[2016-07-08] MEDS ORDERED: ENULOSE UD L30 ML/EA PO (17:54)
[2016-07-08] MEDS ORDERED: LASIX20 MG PO (17:55)
[2016-07-08] MEDS ORDERED: PROTONIX40 MG PO (17:55)
[2016-07-08] MEDS ORDERED: ALDACTONE25 MG PO (17:55)
[2016-07-08] MEDS ORDERED: ZOFRAN4 MG PO (17:56)
[2016-07-08] MEDS ORDERED: CIPRO500 MG PO (17:56)
== END 2016-06-13 20:58 | disposition disaster alternative care site (69) ==
LOC: GMED 20:25
DX: R51 Headache (principal)
CPT/HCPCS: J0780; J1200; J1885

== ENCOUNTER 2016-06-14 07:33 | Inpatient (IN) | payer MEDICAID ==
[~2016-06-14] VITALS: Ht 182.9 cm; Wt 85.0 kg
--- NOTE | ~2016-06-14 | ENPV ---
Vascular Lower Extremities DVT Study Procedure Demographics Patient Name STACEY DAVID Date of Study 06/16/2016 Patient Number [id number] Gender Male Date of 1970 Age 45 Visit Number [id number] Height Accession Number [id number] Weight Room Number G6201 BSA BMI Referring Interpreting Julianna Lemons MD Physician Physician Physician Ordering Physician Jason Solorio MD Warehouse Technician Project Controls Specialist Clarisse Ramirez [facility] Sabrina Barrientos Conclusions Summary TECHNIQUE: The veins of the lower extremities on the right and the left were evaluated from the groin to the ankle using hutchinson scale, compression, and augmentation. Venous hemodynamics were evaluated with color flow and spectral Doppler. FINDINGS: The deep veins of the legs bilaterally show normal color flow and compressibility without thrombosis. IMPRESSION: NEGATIVE BILATERAL LOWER EXTREMITY VENOUS DOPPLER. Procedure Type of Study: Veins:Lower Extremities DVT Study, Venous Duplex Lower Extremity Bilateral. Indications for Study:Swelling of Limb. Patient Status:Routine. Study Location:Inpatient Portable. Technical Quality:Adequate visualization. Velocities are measured in cm/s ; Diameters are measured in cm Right Lower Extremities DVT Study Measurements Right 2D and Doppler Measurements + + + + +------+------+ + !Location !Visualized!Compressibility!Thrombosis!Signal!Reflux!Reflux ! ! ! ! ! ! ! !(sec) ! + + + + +------+------+ + !GSV Thigh !Yes !Yes !None !Phasic!No ! ! + + + + +------+------+ + !Common !Yes !Yes !None !Phasic!No ! ! !Femoral ! ! ! ! ! ! ! + + + + +------+------+ + !Prox !Yes !Yes !None !Phasic!No ! ! !Femoral ! ! ! ! ! ! ! + + + + +------+------+ + !Mid Femoral!Yes !Yes !None !Phasic!No ! ! + + + + +------+------+ + !Dist !Yes !Yes !None !Phasic!No ! ! !Femoral ! ! ! ! ! ! ! + + + + +------+------+ + !Popliteal !Yes !Yes !None !Phasic!No ! ! + + + + +------+------+ + !Gastroc !Yes !Yes !None !Phasic!No ! ! + + + + +------+------+ + !PTV !Yes !Yes !None !Phasic!No ! ! + + + + +------+------+ + !Peroneal !Yes !Yes !None !Phasic!No ! ! + + + + +------+------+ + Left Lower Extremities DVT Study Measurements Left 2D and Doppler Measurements + + + + +------+------+ + !Location !Visualized!Compressibility!Thrombosis!Signal!Reflux!Reflux ! ! ! ! ! ! ! !(sec) ! + + + + +------+------+ + !GSV Thigh !Yes !Yes !None !Phasic!No ! ! + + + + +------+------+ + !Common !Yes !Yes !None !Phasic!No ! ! !Femoral ! ! ! ! ! ! ! + + + + +------+------+ + !Prox !Yes !Yes !None !Phasic!No ! ! !Femoral ! ! ! ! ! ! ! + + + + +------+------+ + !Mid Femoral!Yes !Yes !None !Phasic!No ! ! + + + + +------+------+ + !Dist !Yes !Yes !None !Phasic!No ! ! !Femoral ! ! ! ! ! ! ! + + + + +------+------+ + !Popliteal !Yes !Yes !None !Phasic!No ! ! + + + + +------+------+ + !Gastroc !Yes !Yes !None !Phasic!No ! ! + + + + +------+------+ + !PTV !Yes !Yes !None !Phasic!No ! ! + + + + +------+------+ + !Peroneal !Yes !Yes !None !Phasic!No ! ! + + + + +------+------+ + Signature dtt: Talat Levine dtd: 06/16/16 0742 Physician Self Ju
--- NOTE | ~2016-06-14 | DS ---
PATIENT'S NAME: STACEY DAVID [facility] AGE: 45 Y [address] ROOM: [id number] [place], [place] [address] LOCATION: [facility] ADMIT DATE: 06/14/2016 Discharge Summary DISCHARGE DATE: FAMILY PHYSICIAN: Onesimo Castellon MD ATTENDING PHYSICIAN: Kavon Henry PRINCIPAL DIAGNOSES: 1. Hypovolemic shock. 2. Acute variceal bleeding. 3. Acute blood loss anemia. 4. End-stage liver disease secondary to hepatitis C. 5. Clostridium difficile colitis. 6. Acute hypoxemic respiratory failure. HOSPITAL COURSE: A 45-year-old very pleasant gentleman who had been admitted under our service many times before, was transferred from outside facility with acute variceal bleeding. He was intubated for airway protection and was admitted to the ICU. He was volume resuscitated aggressively to maintain the blood pressure. He did require pressors to maintain the perfusion. Gastroenterology was consulted, and an upper endoscopy was done which did reveal esophageal varices and were banded. His hemoglobin finally got stabilized after many days in the ICU. He was uneventfully extubated and transferred to the regular medical floor for further management. He also underwent peritoneal tap done in the hospital which did not reveal spontaneous bacterial peritonitis. About 5.5 L was taken out at that point. Unfortunately, during the course of the hospitalization, he also developed C difficile colitis, which was treated with oral vancomycin, which on the day of discharge resolved as he was having more formed stools now. He recently had revision of his TIPS done, and given the scenario where he continued to have GI bleed as well as ascites, right upper quadrant Doppler was done which did reveal patency of the TIPS. He is on the transplant list in [place]. He was advised to follow up with the transplant team there. We will have Dr. Lao follow in one weeks' time with a BMP. He was resumed on all his home medications, and new medication is vancomycin which is supposed to be stopped on 07/09/2016. DISCHARGE MEDICATIONS: Include: 1. Vancomycin 4 times daily orally, 125 mg, stop date is 07/09/2016. 2. Lasix 40 mg oral b.i.d. 3. Lactulose 30 mL p.o. every 6 hours. 4. Pantoprazole 40 mg p.o. every day. 5. Aldactone 100 mg p.o. every day. 6. Tylenol 650 mg q.6 hours p.r.n. for pain. 7. Ciprofloxacin 500 mg p.o. every week per Infectious Disease recommendations for SBP prophylaxis. PATIENT'S NAME: STACEY DAVID [facility] AGE: 45 Y [address] ROOM: [place] [address] LOCATION: [facility] ADMIT DATE: 06/14/2016 Discharge Summary DISCHARGE DATE: FAMILY PHYSICIAN: Onesimo Castellon MD ATTENDING PHYSICIAN: Kavon Henry ACTIVITY: As tolerated. DIET: Low-sodium diet. FOLLOWUP: Follow up with Dr. Lao in one week with a BMP. I spent 35 minutes in discharge planning of this patient. MD AKANKSHA SÁNCHEZ/carlo /[id number] d: 06/27/16 1136 t: 07/01/16 1203, DISCHARGE SUMMARY
--- NOTE | ~2016-06-14 | CON ---
PATIENT'S NAME: STACEY HERRERA [facility] AGE: 45 Y [address] ROOM: [place] [address] LOCATION: GICU ADMIT DATE: 06/14/2016 Consultation DISCHARGE DATE: FAMILY PHYSICIAN: Onesimo Castellon MD ATTENDING PHYSICIAN: SRIDEVI WILSON DATE OF CONSULTATION: 06/14/2016 REFERRING PHYSICIAN: FRANCOIS AMES MD REASON FOR CONSULTATION: This is a 45-year-old male who was admitted this morning through the emergency room with a history of upper GI bleeding, vomiting large amount of coffee- grounds material. HISTORY OF PRESENTING ILLNESS: Mr. Herrera has been admitted repeatedly, especially for problems of advanced liver cirrhosis, ascites, repeated SBP, repeated tapping of ascites, and bleeding from esophageal varices and band ligations. This is probably his fourth admission since March. He was in the emergency room at [facility] daily for the last 4 days with complaints ranging from severe headaches, constipation, periods of confusion, and now with upper GI bleeding. He had a TIPS procedure done in [place] and had a revision of TIPS 2 weeks ago. The amount of bleeding this morning was once, a large amount, not associated with any melena or hematochezia. He did not have any blackout; however, he felt dizzy and weak while walking to the washroom. PAST MEDICAL HISTORY: Includes: 1. Liver cirrhosis. 2. Portal hypertension, status post TIPS placement. 3. Ascites. 4. Hiatal hernia. 5. Hepatitis C infection. 6. History of alcoholism in the past. 7. Depression. 8. Hypertension. PAST SURGICAL HISTORY: Multiple endoscopies, colonoscopies, and TIPS procedure. SOCIAL HISTORY: He is a former alcoholic, cocaine user, and marijuana user. He does not smoke. Currently, no alcohol use. ALLERGIES: PATIENT'S NAME: STACEY HERRERA [facility] AGE: 45 Y [address] ROOM: [place] [address] LOCATION: GICU ADMIT DATE: 06/14/2016 Consultation DISCHARGE DATE: FAMILY PHYSICIAN: Onesimo Castellon MD ATTENDING PHYSICIAN: SRIDEVI WILSON NONE REPORTED. MEDICATIONS: Include: 1. Lasix. 2. Aldactone. 3. Omeprazole alternating with pantoprazole. 4. He quit taking Xifaxan because he could not afford. 5. He has been taking lactulose on irregular basis. REVIEW OF SYSTEMS: A 10-point review of systems was negative other than as mentioned above. PHYSICAL EXAMINATION: GENERAL: He is a young male who is comfortable in bed. VITAL SIGNS: His blood pressure is 120/73 in the room. Initially, in the emergency room, his blood pressure was 106/59. Pulse is 89 per minute, respirations are 16 per minute. HEAD: Normocephalic, atraumatic. NECK: Supple. No lymphadenopathy. JVP is not elevated. CHEST: Clear to palpation, percussion, and auscultation. CARDIAC: Both heart sounds normal. No S3. No murmur. No rub. ABDOMEN: Soft. It is bulging. There is ascites with shifting dullness positive. There is hepatosplenomegaly. The abdomen is nontender. NEUROLOGICAL: Asterixis is positive. Cranial nerves 2 through 12 intact. Motor and sensory systems intact. MUSCULOSKELETAL: He moves all extremities. There is no edema of lower extremities. LABORATORY DATA: His hemoglobin was 6.6 g in the emergency room; a day before, it was 8.8 g. His platelets were 94,000, hematocrit was 19.8, and WBC count was 9700. His INR was 1.5, and prothrombin time was 15.7. Lactate level was 4.2. Sodium 133, chloride 103, potassium 5.1, CO2 was 18, glucose 134, calcium 7.6, BUN was 27, and creatinine 1. Albumin was 2.2. Total bilirubin was 2.3, indirect bilirubin was 1.4. AST was 86, ALT was 81, and alkaline phosphatase was 221. LDH was 317. TIBC was 223. CK-MB was 3.9. TSH was 0.9. CT head was done on June [address] of the abdomen was in February 2016 and showed cirrhotic liver. TIPS in place. Small right pleural effusion was seen. There was cholelithiasis without cholecystitis. ASSESSMENT: 1. Mr. Herrera has upper gastrointestinal bleeding, most likely secondary to esophageal varices. There is a background of liver cirrhosis. PATIENT'S NAME: STACEY HERRERA [facility] AGE: 45 Y [address] ROOM: [id number] [place], [place] [address] LOCATION: GICU ADMIT DATE: 06/14/2016 Consultation DISCHARGE DATE: FAMILY PHYSICIAN: Onesimo Castellon MD ATTENDING PHYSICIAN: SRIDEVI WILSON 2. He has been noncompliant with medications. 3. Post TIPS placement, repeated encephalopathy. He is also noncompliant for medications to treat encephalopathy with lactulose and Xifaxan. RECOMMENDATIONS: Upper GI endoscopy for evaluation of his source of bleeding and perhaps band ligation for esophageal varices. We appreciate sharing care of this patient. MD SHER STOVALL/carlo /[id number] CC: Onesimo Castellon MD d: 06/14/16 1354 t: 06/15/160, CONSULTATION REPORT
--- NOTE | ~2016-06-14 | ER ---
PATIENT'S NAME: STACEY DAVID [facility] AGE: 45 Y [address] ROOM: [place] [address] LOCATION: [facility] ADMIT DATE: 06/14/2016 ER/Outpatient Report DISCHARGE DATE: FAMILY PHYSICIAN: Onesimo Castellon MD ATTENDING PHYSICIAN: SRIDEVI HENRY CHIEF COMPLAINT: Vomiting blood and headache. HISTORY OF PRESENT ILLNESS: The patient states that his headache has returned since yesterday. He was seen in the emergency department last night, treated, and discharged. However, this morning, he did vomit some nohclb-bdfltrf-xqzv material with no gross blood. He states it was dark and black. He denies any loss of consciousness or alterations in his mental status. He did call the ambulance and arrived by unit today. He did not receive any medications prior to arrival. He has been taking his lactulose. He does have a history of cirrhosis and bleeding varices. He denies any change in his stool, but it is on the dark side. No other acute issues. His headache is also present. PAST MEDICAL HISTORY: Documented on the record and reviewed by me. SOCIAL HISTORY: Documented on the record and reviewed by me. MEDICATIONS: Documented on the record and reviewed by me. ALLERGIES: DOCUMENTED ON THE RECORD AND REVIEWED BY ME. REVIEW OF SYSTEMS: All systems were reviewed and negative except as noted in the HPI. PHYSICAL EXAMINATION: VITAL SIGNS: Blood pressure 124/69, pulse 100, respiratory rate is 19, temperature 98.2, and SpO2 is 99% on room air. Pain is currently 0/10. GENERAL: Age-appropriate male, in no obvious pain or distress. NEUROLOGIC: Awake and alert. GCS 15. No obvious abnormalities. No asymmetry on exam. HEENT: Normocephalic, atraumatic. The eyes are PERRL. The oropharynx is clear. NECK: Supple. Trachea is midline. CHEST: Heart is regular. Borderline tachycardia, with no murmurs. Lungs are PATIENT'S NAME: STACEY DAVID [facility] AGE: 45 Y [address] ROOM: [place] [address] LOCATION: [facility] ADMIT DATE: 06/14/2016 ER/Outpatient Report DISCHARGE DATE: FAMILY PHYSICIAN: Onesimo Castellon MD ATTENDING PHYSICIAN: KATIE,SRIDEVI A clear to auscultation bilaterally with no rhonchi, wheezes, or rales. ABDOMEN: Soft and round with no masses or tenderness. BACK: Nontender to palpation throughout. RECTAL: No external hemorrhoids. Stool is dark, with no gross blood appreciated. EXTREMITIES: Warm and well perfused. SKIN: Warm, dry, and intact. LABS AND X-RAYS: No imaging was obtained today. Labs: Hemoccult-positive stool. Procalcitonin 0.19. Blood type B positive. Lactate is 4.2. WBC is 9.7, hemoglobin is 6.6, and platelets of 94. INR is 1.5. Sodium 133, potassium 5.1, chloride is 103, CO2 is 18, BUN is 27, and creatinine 1.0. LFTs are notable for total bilirubin of 2.3, alkaline phosphatase of 221, AST of 86, and ALT of 81. Amylase and lipase at 26 and 147 respectively. Free T4 of 0.9 and TSH 0.977. CRP below threshold. Ammonia is 93. IMPRESSION: 1. Concern for upper gastrointestinal bleeding. 2. Intractable headache. 3. Hepatitis with cirrhosis and possible bleeding varices. 4. Anemia, requiring transfusion. 5. Mild hyponatremia. EMERGENCY DEPARTMENT COURSE: The patient was evaluated as above. His presentation is concerning for active hemorrhage. He has downtrending hemoglobin of 1.4 g in 48 hours. He has had 4 ER visits now in less than 72 hours. The new bleeding and downtrending hemoglobin are concerning. For these reasons, we will admit him to the hospital. His lactic acidemia was treated with 1 L of normal saline. His downtrending hemoglobin was concerning, and thus he was given 2 units of packed red blood cells in the emergency department. He remained otherwise stable. He did receive Rocephin and Protonix. He required one dose of fentanyl as his pain began to worsen. This helped him feel better. He remained otherwise stable. Blood pressures in the upper 90s and lower 100s. I discussed the case with AUDI Vázquez, and he will see the patient as an inpatient today. Dr. Henry will admit the patient to the PCU or equivalent unit. MD JORGE WOLFE/carlo PATIENT'S NAME: STACEY DAVID [facility] AGE: 45 Y [address] ROOM: [place] [address] LOCATION: [facility] ADMIT DATE: 06/14/2016 ER/Outpatient Report DISCHARGE DATE: FAMILY PHYSICIAN: Onesimo Castellon MD ATTENDING PHYSICIAN: SRIDEVI HENRY /[id number] d: 06/14/16 1250 t: 06/16/16 1733, OUTPATIENT REPORT
--- NOTE | ~2016-06-14 | ECHO ---
Transthoracic Echocardiography Report (TTE) Demographics Patient Name STACEY DAVID Date of Study 06/21/2016 Patient Number [id number] Visit Number [id number] Date of 1970 Room Number G6319 Gender Male Number Age 45 year(s) Referring Ravinder Barrientos Drafter Structural Den RVT, RD Physician MD English Physician Interpreting Polo Duncan MD Regulatory Consultant Physician Supervising Ordering Rocky Wright MD, MD/P Physician Nurse Stress Coordinator Of Genetic Services Conclusions Contractility Score Summary Normal Left Ventricular contractility was noted. Summary The estimated left ventricular ejection fraction is 60-65%.Mild concentric left ventricular hypertrophy with normal EF and WM. The left atrium is mildly dilated. Mild mitral regurgitation by color Doppler. Trace TR with normal pulmonary pressures. Procedure Type of Study TTE procedure:2D Echocardiogram, M-Mode, Doppler , Color Doppler. Procedure Date Date: 06/21/2016 Start: 11:43 AM Study Location: Inpatient Portable Technical Quality: Adequate visualization Indications:Murmur. Appropriate Use Criteria: 7 Patient Status: Routine HR: 84 bpm BP: 98/52 mmHg M-Mode/2D Measurements LV Diastolic Dimension: 5.76 cm LV Systolic Dimension: 4.11 cm LV Septum Diastolic: 1.21 cm LV PW Diastolic: 1.02 cm AO Root Dimension: 2.2 cm AV Cusp Separation: 1.7 cm RV Diastolic Dimension: 2.46 cm LA Dimension: 4 cm LA volume: 73 ml RV Base: 2.26 cm LVOT: 2.1 cm RV Mid: 2.62 cm RV Length: 7.68 cm TAPSE: 2.91 cm TDI-S': 16.3 cm/s Doppler Measurements MV Peak E-Wave: 0.99 m/s MV Peak A-Wave: 0.72 m/s MV E/A Ratio: 1.38 TR Velocity:2.23 m/s MV P1/2t: 51 msec TR Gradient:19.89 mmHg Estimated RAP:10 mmHg E' Septal Velocity: 0.09 m/s PV Peak Velocity: 1 m/s E' Lateral Velocity: 0.13 m/s PV Peak Gradient: 4 mmHg Estimated PASP: 29.89 mmHg A' Lateral Velocity: 0.15 m/s Findings Left Ventricle Mild concentric left ventricular hypertrophy with normal internal dimension,EF and WM. Right Ventricle Normal right ventricle structure and function. Left Atrium The left atrium is mildly dilated. Right Atrium Normal right atrial size. Mitral Valve Mild mitral regurgitation by color Doppler. Aortic Valve Normal aortic valve structure and function. Tricuspid Valve Trivial tricuspid regurgitation by color Doppler. Pulmonic Valve Normal pulmonic valve structure and function. Pericardial Effusion No evidence of pericardial effusion. Miscellaneous Visualized portions of the aortic root and ascending aorta appear normal in size. Pleural Effusion No evidence of pleural effusion. Contractility Score LV regional wall motion:(0-Non visualized 1-Normal 2-Hypokinesis 3-Akinesis 4-Dyskinesis 5-Aneurysm) Signature dtt: Perla Cuellar dtd: 06/21/16 1143 Physician Self Edit
--- NOTE | ~2016-06-14 | OR ---
PATIENT'S NAME: STACEY DAVID [facility] AGE: 45 Y [address] ROOM: [place] [address] LOCATION: GICU ADMIT DATE: 06/14/2016 OR/Procedure Report DISCHARGE DATE: FAMILY PHYSICIAN: Onesimo Castellon MD ATTENDING PHYSICIAN: SRIDEVI WILSON SURGEON: Homa Mcduffie MD ASSET ADMINISTRATOR: DATE OF PROCEDURE: PROCEDURE: Right arterial line placement. INDICATION: Hemodynamic monitor. DESCRIPTION FOR PROCEDURE: Emergency consent was used, secondary to the patient's intubated status. He is also sedated. Using ultrasound guidance, left radial artery was selected for arterial line placement. The patient was prepped using sterile technique. Using real-time sonographic guidance, arrow kit needle was entered into the radial artery on 3rd attempt and guidewire was advanced and needle was advanced over the guidewire and guidewire was retrieved. Jaylen test was done postprocedurally. No immediate procedural complications were noted. HOMA MCDUFFIE MD AKANKSHA/modl /[id number] d: 06/15/16 0503 t: 06/15/16 0625, OPERATIVE SUMMARY
--- NOTE | ~2016-06-14 | CON ---
PATIENT'S NAME: STACEY DAVID [facility] AGE: 45 Y [address] ROOM: [address] [address] LOCATION: GICU ADMIT DATE: 06/14/2016 Consultation DISCHARGE DATE: FAMILY PHYSICIAN: Onesimo Castellon MD ATTENDING PHYSICIAN: SRIDEVI HENRY DATE OF CONSULTATION: 06/14/2016 REFERRING PHYSICIAN: FRANCOIS AMES MD REASON FOR CONSULTATION: Evaluation and management of a patient with acute respiratory failure. He was intubated for airway protection and started on mechanical ventilation. CHIEF COMPLAINT: GI bleeding. HISTORY OF PRESENT ILLNESS: This is a 45-year-old male, with a complicated medical history consistent with end-stage liver disease, cirrhosis, recurrent ascites, prior esophageal varices bleeding, and other medical comorbidities who was admitted earlier today with severe headaches. He presented multiple times in the last 2 days to the emergency department with severe headache and vomiting. Only today, he vomited blood, reason for which he was admitted initially to the Progressive Care Unit for further evaluation and management. In the meantime, he had received several doses of Toradol and a dose of steroids during his previous ED visits. This morning, he had 2 episodes of vomiting blood and he became lightheaded and received blood for his acute blood loss anemia. Later today, the patient was evaluated by the GI Team and an endoscopy was attempted. However, the patient had evidence of significant bleeding in his stomach and he was eventually intubated for airway protection as he continued to vomit blood. After intubation, he was transferred to our Intensive Care Unit on assist control mode, tidal volume of 500, respiratory rate of 12, 100% FiO2, and a PEEP of 5. Subsequently, the FiO2 was decreased to 60% and his oxygen saturations remained in the upper 90s. Protonix and octreotide drips have been order by the hospitalist, Dr. Ames, who assumed care of the patient from Dr. Henry, who initially admitted the patient. Because of the patient's acute respiratory failure, requiring mechanical ventilation, I was asked by Dr. Ames to come and evaluate the patient. At the time of my evaluation, the patient was intubated and sedated with Versed drip. His sedation analgesia score was around 3. He had three large-bore peripheral IV lines placed and he was receiving 1 unit of blood. He had TIPS procedure done in the past with a recent revision. He has been sober from alcohol for the last several months, but apparently he has not been placed under liver transplant list yet. PATIENT'S NAME: STACEY DAVID [facility] AGE: 45 Y [address] ROOM: [address] [address] LOCATION: GICU ADMIT DATE: 06/14/2016 Consultation DISCHARGE DATE: FAMILY PHYSICIAN: Onesimo Castellon MD ATTENDING PHYSICIAN: SRIDEVI HENRY PAST MEDICAL HISTORY: 1. End-stage liver disease due to chronic hepatitis C and previous heavy alcohol abuse. 2. Recurrent ascites with frequent paracentesis. 3. Portal hypertension. 4. Depression. 5. Essential hypertension. 6. 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 7. Depression. ALLERGIES: TO HEPARIN. CURRENT MEDICATIONS: Reviewed as per chart. Pertinent medications as per history of present illness. SOCIAL HISTORY: As documented in the chart, he is a former alcohol, cocaine, and marijuana user. He has been sober for the last several months. There is no history of tobacco abuse. FAMILY HISTORY: His father has hypertension and his mother has cardiovascular disease. PAST SURGICAL HISTORY: 1. TIPS procedure in the past. 2. Multiple EGDs. 3. Multiple paracentesis. REVIEW OF SYSTEMS: Could not be obtained because of patient's clinical status. He was intubated and sedated at the time of my examination. PHYSICAL EXAMINATION: VITAL SIGNS: Temperature was 98.7, heart rate was 101, respiratory rate was 15, blood pressure 132/64, oxygen saturation 100% on 60% FiO2, weight 90.3 kilos, and height 6 feet with a BMI of 27. GENERAL: He is a young male, lying in bed, intubated and sedated with sedation analgesia score of 3. HEENT: Atraumatic head. Pupils were equal and reactive to light. Anicteric sclerae. Conjunctival pallor noted. Moist oral mucosa. NECK: Supple. No JVD. No LAD. Trachea midline. No thyromegaly. RESPIRATORY: He had decreased breath sounds at both lung bases, but otherwise clear to auscultation. PATIENT'S NAME: STACEY DAVID [facility] AGE: 45 Y [address] ROOM: [address] [address] LOCATION: [facility] ADMIT DATE: 06/14/2016 Consultation DISCHARGE DATE: FAMILY PHYSICIAN: Onesimo Castellon MD ATTENDING PHYSICIAN: SRIDEVI HENRY CARDIOVASCULAR: Regular rhythm and tachycardic on my exam with a heart rate of 108. No murmur, rubs, or gallops. ABDOMEN: Distended with diminished bowel sounds and could not evaluate for hepatosplenomegaly. EXTREMITIES: He had +1 bilateral lower extremity edema. No cyanosis and no clubbing. LABORATORY DATA: His lactic acid was 4.2, ammonia level was elevated at 9.3. CBC revealed WBC of 9.7, hemoglobin of 6.6, hematocrit of 19.8, and platelets of 94. Sodium of 133, potassium of 5.1, chloride of 103, total serum bicarbonate of 18, BUN of 27, creatinine of 1, alkaline phosphatase of 221, AST of 86, ALT of 81, total bilirubin of 2.3. Procalcitonin was mildly elevated at 0.19. Occult stool blood test was positive for blood. Arterial blood gas after intubation revealed a pH of 7.2, pCO2 was 47, PO2 was 134 while on 60% FiO2. The base deficit was significantly elevated at 9.5. Chest x-ray after intubation revealed the endotracheal tube to be in stable position; the patient had bibasilar atelectasis. ASSESSMENT AND PLAN: 1. Acute respiratory failure. The patient was intubated for airway protection in context of massive upper GI bleeding. His respiratory status is stable after intubation. 2. Upper GI bleeding. I suspect this is from esophageal varices and/or gastric antral ectasia. 3. Anemia. This is severe due to upper GI bleeding. 4. End-stage liver disease with multiple complications related to portal hypertension including recurrent upper GI bleeding, ascites requiring multiple paracentesis. 5. Prior alcohol abuse. 6. Status post recent TIPS revision. 7. Mixed respiratory and metabolic acidosis. PLAN: 1. I will continue mechanical ventilation and will increase the respiratory rate and tidal volume to lower the pCO2 levels and help with the pH. 2. I will await for control of his upper GI bleeding before proceeding with SBT and possible extubation. 3. We will follow up the GI teams recommendations. 4. We will start him on vasopressors as needed. 5. We will follow up CBC, complete metabolic panel closely. The current assessment and plan was discussed with Dr. Ames and the patient's family. I spent 40 minutes of critical care time managing acute respiratory failure in a patient with massive upper GI bleeding. I personally PATIENT'S NAME: STACEY DAVID [facility] AGE: 45 Y [address] ROOM: [place] [address] LOCATION: GICU ADMIT DATE: 06/14/2016 Consultation DISCHARGE DATE: FAMILY PHYSICIAN: Onesimo Castellon MD ATTENDING PHYSICIAN: SRIDEVI HENRY reviewed the data,coordinated care among healthcare providers, and updated the family. I would like to thank you, Dr. Ames, for giving me the opportunity to participate in this patient's care. RHONA ELIZABETH MD RFN/modl /[id number] d: 06/15/16 0725 t: 06/16/16 0843, CONSULTATION REPORT
--- NOTE | ~2016-06-14 | CON ---
PATIENT'S NAME: STACEY HERRERA [facility] AGE: 45 Y [address] ROOM: [place] [address] LOCATION: GPCU ADMIT DATE: 06/14/2016 Consultation DISCHARGE DATE: FAMILY PHYSICIAN: Onesimo Castellon MD ATTENDING PHYSICIAN: SRIDEVI WILSON DATE OF CONSULTATION: 06/25/2016 REFERRING PHYSICIAN: FRANCOIS AMES MD REASON FOR EVALUATION: C difficile colitis. CHIEF COMPLAINT: The patient states stooling is getting better. HISTORY OF PRESENT ILLNESS: Mr. Herrera is a 45-year-old man with end-stage liver disease. He has had a TIPS. He presented to the hospital with upper GI bleeding. He had emergent scope, was acutely ill, respiratory failure on vent, etc. He was on antibiotics at that time due to the severity of his illness. His antibiotics were then discontinued on the . Around a few days after this, he started to have fever. He also had an uptake in stooling. He was started on empiric Zosyn as well as empiric C difficile treatment and his C difficile test was in fact positive. His Zosyn was stopped today. He states that his stooling is improving. He does not have much in the way of belly pain at this time. He states that he has had SBP in the past and is on daily ciprofloxacin as prophylaxis. I am asked to evaluate. PAST MEDICAL HISTORY: Significant for cirrhosis, status post TIPS, hepatitis C, upper GI bleed, history of high blood pressure. SOCIAL HISTORY: History of significant alcohol abuse, although he has history of other substance abuse. No unusual exposures. No tobacco use. No known antibiotic allergies. FAMILY HISTORY: No unusual infections or immune disorders. REVIEW OF SYSTEMS: Pertinent positives include one gastrointestinal, the patient with distended abdomen (baseline, he does require paracentesis) and some loose stools are improving, as the patient denies other symptoms. Remainder of a complete review of systems otherwise negative. PATIENT'S NAME: STACEY HERRERA [facility] AGE: 45 Y [address] ROOM: [place] [address] LOCATION: GPCU ADMIT DATE: 06/14/2016 Consultation DISCHARGE DATE: FAMILY PHYSICIAN: Onesimo Castellon MD ATTENDING PHYSICIAN: SRIDEVI WILSON PHYSICAL EXAMINATION: VITALS SIGNS: Temperature 37.4, he has been afebrile since . Blood pressure 114/60, heart rate 99. GENERAL: The patient is lying in bed, in no acute distress. HEENT: The patient is slightly icteric. No conjunctival lesions noted. Ears, nose, throat, tongue is no thrush. CARDIOVASCULAR: Heart is borderline tachycardic with a systolic murmur present. RESPIRATORY: Breathing is easy and unlabored. Lungs are clear anterolaterally. GASTROINTESTINAL: Abdomen is soft. It is distended with fluid. Normoactive bowel sounds are present. It is not really tender. GENITOURINARY: No suprapubic tenderness. NEUROLOGIC: The patient is awake, alert, appropriate in conversation. No encephalopathy. LYMPHATIC: No cervical lymphadenopathy. MUSCULOSKELETAL: No effusions of fingers, wrists, elbows, shoulders, knees. INTEGUMENTARY: No rash, the site looks okay. LABORATORY STUDIES: Reviewed in the electronic medical record. ASSESSMENT RECOMMENDATIONS: 1. Clostridium difficile colitis. He has not required dual therapy at this time. He is clinically nontoxic. He states that he is stooling is already improving. I will stop the Flagyl. I will continue him on the vancomycin 125 mg four times daily. He will continue this until July 09 and that will be 14 days after his last dose of Zosyn. 2. History of spontaneous bacterial peritonitis. He requires spontaneous bacterial peritonitis prophylaxis. He states that he was on daily ciprofloxacin prior to his admission. For prophylaxis purposes, ciprofloxacin can often be done only 750 mg once weekly. I would recommend this rather than a daily dose to decrease his total antibiotic exposure. I would go ahead and start this after he finishes acute Clostridium difficile treatment. 3. Risk of Clostridium difficile relapse. He will require ongoing antibiotic therapy. There is obvious risk for clostridium difficile relapse. Hopefully, he will not relapse. If he does, we may have to consider a low-dose suppression. Hopefully, however, this will just be a one time episode even with ongoing antibiotics after this in the future. Thank you allowing me to participate in the care of Mr. Herrera. PATIENT'S NAME: STACEY HERRERA [facility] AGE: 45 Y [address] ROOM: [place] [address] [facility] ADMIT DATE: 06/14/2016 Consultation DISCHARGE DATE: FAMILY PHYSICIAN: Onesimo Castellon MD ATTENDING PHYSICIAN: SRIDEVI WILSON MD MEENA MICHAUD/modl /[id number] d: 06/25/16 1830 t: 06/26/16 1002, CONSULTATION REPORT
--- NOTE | ~2016-06-14 | OR ---
PATIENT'S NAME: STACEY DAVID [facility] AGE: 45 Y [address] ROOM: [place] [address] LOCATION: GICU ADMIT DATE: 06/14/2016 OR/Procedure Report DISCHARGE DATE: FAMILY PHYSICIAN: Onesimo Castellon MD ATTENDING PHYSICIAN: SRIDEVI WILSON SURGEON: Homa Mcduffie MD LINE UP EXAMINER: DATE OF PROCEDURE: PROCEDURE: Central venous catheterization. INDICATION: Intravenous access. DESCRIPTION OF PROCEDURE: Emergency consent was used to do this procedure. The patient time out was taken before the procedure. Ultrasound guidance was used to examine both internal jugular veins. Right internal jugular was selected for central venous catheterization. The patient was prepped in sterile fashion. Local anesthetic was achieved with lidocaine. Using real- time sonographic guidance, trocar needle was entered into the central vein with aspiration of purple oozing blood. Guidewire was advanced. Needle was retrieved. Guidewire placement was confirmed using ultrasound. Sequential dilatation was achieved with the dilators. Trauma line was advanced over the guidewire and guidewire was retrieved. Line was draped and skewed. No immediate complications were noted. Postprocedural, chest x-ray did not reveal any pneumothorax or complications related to the central line. HOMA MCDUFFIE MD AKANKSHA/modl /[id number] d: 06/15/16 0458 t: 06/15/16 0620, OPERATIVE SUMMARY
--- NOTE | ~2016-06-14 | CON ---
PATIENT'S NAME: STACEY DAVID [facility] AGE: 45 Y [address] ROOM: [address] [place], [place] [address] LOCATION: GICU ADMIT DATE: 06/14/2016 Consultation DISCHARGE DATE: FAMILY PHYSICIAN: Onesimo Castellon MD ATTENDING PHYSICIAN: SRIDEVI HENRY DATE OF CONSULTATION: 06/14/2016 REFERRING PHYSICIAN: RANDALL AMES MD REQUESTING PHYSICIAN: Sridevi Henry MD CONSULTING PHYSICIAN: Randall Ames MD REASON FOR CONSULT: GI bleed. HISTORY OF PRESENT ILLNESS: This is a 45-year-old male with a history of chronic alcoholism in the past. The patient also has a history of hepatitis C. He has now developed end-stage liver disease, cirrhosis, and ascites. The patient undergoes frequent paracentesis. He also had a GI bleed in the past and had received a TIPS procedure. Last month, the patient had presented with another GI bleed and had to be [facility] for revision of the TIPS procedure. The patient has been presenting to the ER frequently in the past few days. He had presented with headaches. He was evaluated in the ER by Dr. Vallecillo and received several doses of Toradol and also a dose of steroids. The patient presented today with headache and vomiting. The patient stated that he vomited blood. He has had 2 episodes of bloody vomiting. He also has been lightheaded. His headache has also come back. The patient was admitted by Dr. Henry; however, the primary team has not seen the patient yet. The patient developed a headache on the floor. The hospitalist team was then consulted by Dr. Henry. Of note, the patient has been on PCU for about 3 hours now and has been receiving blood for acute blood loss anemia. He is currently not on a Protonix drip and also not on octreotide infusion. He has been evaluated, and currently he is going down for an emergent EGD right now. At the time of my examination, the patient is currently being taken down to the EGD suite for an emergent EGD by Dr. Karimi. He is currently receiving 2 units of packed red blood cells. He is lightheaded and extremely pale. He also complains of headache and states that he has slight blurry vision. He is following commands. He has not produced any urine as well. PATIENT'S NAME: STACEY DAVID [facility] AGE: 45 Y [address] ROOM: [place] [address] LOCATION: GICU ADMIT DATE: 06/14/2016 Consultation DISCHARGE DATE: FAMILY PHYSICIAN: Onesimo Castellon MD ATTENDING PHYSICIAN: SRIDEVI HENRY At the time of my examination, the patient denies any pain. He does complain of headache. He rates his headache as 8/10 in intensity. He received a dose of fentanyl in the ER and also subsequently from Dr. Henry, and now his headache seems to be slightly getting better. He is not nauseous. He has not vomited any blood since he has been on the floor. He has not noted any black, tarry stools; however, Hemoccult is positive. The patient states that he has been sober and has not been having any alcohol for the past several months. No other history could be obtained from the patient since he appears to be confused at this point. REVIEW OF SYSTEMS: A 10-point review of systems could not be accomplished because the patient appears confused slightly. PAST MEDICAL HISTORY: 1. History of hepatitis C. 2. History of chronic alcoholism in the past. 3. History of ascites, with frequent paracentesis. 4. Cirrhosis of the liver. 5. Portal hypertension. 6. Status post TIPS procedure, with recent revision. 7. Depression. 8. Hypertension. 9. 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 10. End-stage renal disease. ALLERGIES: HEPARIN. HOME MEDICATIONS: Per MAR. SOCIAL HISTORY: He is a former alcoholic user, cocaine user, and marijuana user. He has been sober for the past several months, per the patient. Denies smoking history. FAMILY HISTORY: Mother with cardiovascular disease. Father with hypertension. PAST SURGICAL HISTORY: 1. Status post TIPS procedure. 2. Multiple EGDs in the past. 3. Multiple paracentesis, almost on a regular basis in the past few months. PATIENT'S NAME: STACEY DAVID [facility] AGE: 45 Y [address] ROOM: [place] [address] LOCATION: GICU ADMIT DATE: 06/14/2016 Consultation DISCHARGE DATE: FAMILY PHYSICIAN: Onesimo Castellon MD ATTENDING PHYSICIAN: SRIDEVI HENRY PHYSICAL EXAMINATION: VITAL SIGNS: Temperature 98.1, pulse 89, respirations 16, blood pressure 107/59, and saturation 100% on room air. GENERAL: The patient is alert and oriented x3. He appears confused slightly. He is extremely lightheaded and has a headache. HEENT: Head: Normocephalic, atraumatic. Pupils are equally round and reactive to light. Extraocular muscles intact. Pallor noted on mucous membranes. Nares clear. Throat clear. HEART: Regular rate and rhythm. LUNGS: Clear to auscultation bilaterally. ABDOMEN: Soft. The patient's abdomen appears to be distended. No tenderness to palpation. Bowel sounds are present. Fluid thrill positive. EXTREMITIES: No clubbing, cyanosis, or edema. VASCULAR: Pulses 2+ distally bilaterally. NEUROLOGIC: The patient is alert and oriented x3; however, he appears very pale and appears slightly confused. Cranial nerves 2 through 12 grossly intact. The patient follows all commands and moves all extremities. DIAGNOSTIC STUDIES: Accu-Chek 148. CBC was done in the ER and showed a white count of 9.7, hemoglobin 6.6, hematocrit 19.8, and platelets 94. CMP showed sodium 133, potassium 5.1, chloride 103, bicarbonate 18, BUN 27, creatinine 1.0, glucose 134, and calcium 7.6. Total protein 4.5. Albumin 2.2. AST 86, ALT 81, and alkaline phosphatase 221. Total bilirubin 2.3. GFR more than 60. Anion gap 17.1. Globulin 2.3. PT 15.7, INR 1.5, and PTT 39. CRP less than 0.29. Amylase 26 and lipase 147. Free T4 of 0.9 and TSH 0.977. Procalcitonin level 0.19. Urgent CT head has been noted by me and is pending at this point of time. Hemoccult test is positive. ASSESSMENT AND PLAN: A 45-year-old male presenting with a gastrointestinal bleed. 1. History of chronic alcoholism in the past. The patient has been sober for the past several months. 2. History of hepatitis C. 3. Cirrhosis of the liver. Continue home medication. 4. Frequent ascites. The patient had a paracentesis done yesterday in the ER. The patient is undergoing frequent paracentesis. His abdomen appears distended. Monitor for now. He may need paracentesis during this admission. 5. History of gastrointestinal bleed. The patient presented with vomiting of blood. I will consult Gastroenterology. The patient is currently being taken down for an emergent EGD. I will place him on octreotide drip and also Protonix drip. Monitor hemoglobin and hematocrit frequently. PATIENT'S NAME: STACEY DAVID [facility] AGE: 45 Y [address] ROOM: [id number] [place], [place] [address] LOCATION: GICU ADMIT DATE: 06/14/2016 Consultation DISCHARGE DATE: FAMILY PHYSICIAN: Onesimo Castellon MD ATTENDING PHYSICIAN: SRIDEVI HENRY 6. Acute blood loss anemia secondary to gastrointestinal bleed. Monitor hemoglobin and hematocrit frequently. The patient has received 2 units of PRBCs. Currently, he appears hemodynamically stable. He is also going down for an emergent EGD. Further recommendations per Gastroenterology. 7. Portal hypertension. The patient has had a TIPS procedure in the past, with recent revision last month at [facility]. Monitor for now. We will consider propranolol for portal hypertension. 8. Deep vein thrombosis prophylaxis. SCD to legs. 9. Code Status: Full code. RANDALL AMES MD MT/carlo /[id number] d: 06/14/16 1756 t: 06/24/16 2334, CONSULTATION REPORT
[~2016-06-14 07:33] MED LIST changes: -ATIVAN 1 MG1 MG PO; -BACTRIM 400-801 EACH PO; -BUMEX1 MG PO; -CALCITRATE + V1 EACH PO; -CELLCEPT500 MG PO; -CITRACAL950 MG PO; -COLACE100 MG PO; -COREG6.25 MG PO; -DELTASONE5 MG PO; -DULCOLAX5 MG PO; -HYDRODIURIL25 MG PO; -LASIX20 MG PO; -LIDOCAINE 5% PATCH TOP; -MIRALAX PO527 GM/BOT PO; -NORVASC10 MG PO; -NYSTATIN100000 UNI PO; -OSCAL500 MG PO; -OXYCODONE HCL5 MG PO; -PROGRAF 1MG CAPS1 MG PO; -PROGRAF5 MG PO; -VANCOCIN HCL125 MG PO; -ZOFRAN4 MG PO; -ZOVIRAX400 MG PO
[2016-06-14 07:54] LABS: HEMATOCRIT 19.8 % (37.0-53.0); HEMOGLOBIN 6.6 g/dL (12.0-17.0); MCH 29.2 pg (27.0-34.0); MCHC 33.3 gm/dL (32.0-36.5); MCV 87.6 fl (83.0-98.0); MPV 13.1 fl (9.4-12.4); PLATELET COUNT 94 K/uL (150-450); RBC 2.26 M/uL (4.00-6.00); RDW-CV 16.3 % (11.9-14.6); WBC 9.7 K/uL (4.0-11.0)
[2016-06-14 08:02] LABS: INR - (THERAPEUTIC) 1.5 (0.9-1.1); PROTIME 15.7 SECONDS (9.6-11.1); PTT 39 SECONDS (25-32)
[2016-06-14 08:14] LABS: ALBUMIN 2.2 gm/dL (3.5-5.0); ALK PHOS 221 IU/L (33-138); ALT 81 IU/L (12-78); ANION GAP 17.1 (10.0-19.0); AST 86 IU/L (10-40); CALCIUM 7.6 mg/dL (8.5-10.5); CHLORIDE 103 mMol/L (96-110); CO2 18 mMol/L (22-32); POTASSIUM 5.1 mMol/L (3.7-5.1); SODIUM 133 mMol/L (135-145); TOTAL BILIRUBIN 2.3 mg/dL (0.0-1.5)
[2016-06-14 08:15] LABS: ABSOLUTE NEUTROPHIL CT (ANC) 8.7 K/uL (1.4-9.0); BANDED NEUTROPHIL # 0.6 K/uL (0.0-0.1); BANDED NEUTROPHILS % 6 %; LYMPHOCYTE # 0.7 K/uL (0.8-4.0); LYMPHOCYTE % 7 %; MONOCYTE # 0.3 K/uL (0.0-1.0); SEGMENTED NEUTROPHIL # 8.2 K/uL (1.4-9.0); SEGMENTED NEUTROPHIL % 84 %
[2016-06-14 08:17] LABS: BLOOD UREA NITROGEN 27 mg/dL (6-24); ESTIMATED GFR (MDRD EQUATION) > 60; TOTAL PROTEIN 4.5 g/dL (6.0-8.4)
--- NOTE | 2016-06-14 10:35 | NUR ---
45 YR OLD MALE PATIENT FROM ER CAME UP WITH GI BLEED. VOMITING BLOOD AT HOME. HGB 6.6 GETTING 2 UNITS OF BLOOD 1ST ONE STARTED IN ER. ALERT AND ORIENTED X 3. HX ASCITES. STATES HE HAS SOME CONFUSION AT HOME. ZOFRAN AND PROTONIX GIVEN IN ER.
[2016-06-14 13:14] LABS: BICARBONATE 18.4 mmol/L (18.0-23.0); PCO2 47 mmHg (35-45); PO2 134 mmHg (80-90)
[2016-06-14 15:07] LABS: HEMATOCRIT 24.1 % (37.0-53.0); HEMOGLOBIN 7.9 g/dL (12.0-17.0)
[2016-06-14 17:14] LABS: HEMATOCRIT 20.1 % (37.0-53.0)
[2016-06-14 17:15] LABS: HEMOGLOBIN 6.6 g/dL (12.0-17.0)
--- NOTE | 2016-06-14 17:15 | NUR ---
PT VENTED ON 40% SATS 94-98%, BREATH SOUNDS SLIGHTLY COARSE THROUGHOUT, SXN A LARGE AMOUNT OF THICK CHUNKY BLOODY SPUTUM, ETCO2 30-34 MOST OF THE DAY, WILL CONTINUE TO MONITOR THROUGHOUT THE NIGHT AND TRY TO EXTUBATE CASSY.
[2016-06-14 17:29] LABS: BLOOD UREA NITROGEN 35 mg/dL (6-24); CHLORIDE 106 mMol/L (96-110); CO2 19 mMol/L (22-32); CREATININE 1.2 mg/dL (0.6-1.3); ESTIMATED GFR (MDRD EQUATION) > 60; SODIUM 136 mMol/L (135-145)
--- NOTE | 2016-06-14 17:34 | NUR ---
Significant Event: GI: Q1H 500ML NG Tap water lavages. Returned water has blood clots and is clearing. LIS between lavages. : Concentrated urine. Marginal output. aware. CARDIO: Afebrile. SBP 100s-130s. No edema. RESP: AC 40% PEEP 5 TV 600. Clear lung sounds. Follow up: Continue Q1H lavages. EGD in am.
[2016-06-14 17:39] LABS: ANION GAP 16.8 (10.0-19.0); CALCIUM 7.3 mg/dL (8.5-10.5); POTASSIUM 5.8 mMol/L (3.7-5.1)
[2016-06-14 17:43] LABS: INR - (THERAPEUTIC) 1.4 (0.9-1.1); PROTIME 14.7 SECONDS (9.6-11.1)
[2016-06-14 22:56] LABS: PCO2 27 mmHg (35-45); PO2 167 mmHg (80-90)
[2016-06-14 23:54] LABS: HEMATOCRIT 19.7 % (37.0-53.0)
[2016-06-14 23:59] LABS: HEMOGLOBIN 6.4 g/dL (12.0-17.0)
[2016-06-15 00:09] LABS: CREATININE 1.3 mg/dL (0.6-1.3)
[2016-06-15 00:10] LABS: ANION GAP 20.3 (10.0-19.0); CALCIUM 7.3 mg/dL (8.5-10.5); POTASSIUM 6.3 mMol/L (3.7-5.1)
[2016-06-15 03:48] LABS: BICARBONATE 15.6 mmol/L (18.0-23.0); PCO2 27 mmHg (35-45); PO2 144 mmHg (80-90)
[2016-06-15 04:04] LABS: ALK PHOS 112 IU/L (33-138); ALT 59 IU/L (12-78); AST 58 IU/L (10-40); BLOOD UREA NITROGEN 35 mg/dL (6-24); CHLORIDE 104 mMol/L (96-110); CREATININE 1.1 mg/dL (0.6-1.3); ESTIMATED GFR (MDRD EQUATION) > 60; POTASSIUM 5.5 mMol/L (3.7-5.1); SODIUM 132 mMol/L (135-145)
[2016-06-15 04:05] LABS: ANION GAP 18.5 (10.0-19.0); CALCIUM 6.9 mg/dL (8.5-10.5); CO2 15 mMol/L (22-32); TOTAL BILIRUBIN 4.1 mg/dL (0.0-1.5); TOTAL PROTEIN 3.6 g/dL (6.0-8.4)
[2016-06-15 04:07] LABS: HEMATOCRIT 19.1 % (37.0-53.0); MPV 12.2 fl (9.4-12.4); RBC 2.22 M/uL (4.00-6.00); RDW-CV 16.1 % (11.9-14.6); WBC 6.6 K/uL (4.0-11.0)
[2016-06-15 04:11] LABS: HEMOGLOBIN 6.6 g/dL (12.0-17.0); MCH 29.7 pg (27.0-34.0); MCHC 34.6 gm/dL (32.0-36.5); PLATELET COUNT 48 K/uL (150-450)
--- NOTE | 2016-06-15 05:16 | NUR ---
D: UPPER GI BLEED I: VENT, MDI R: PT. REMAINED ON VENT AT 30% FIO2 WITH SATS 98-100%. ETCO2 34-38. BREATH SOUNDS ARE CLEAR AND DIMINISHED T/O. SUCTIONED A SMALL AMOUNT OF THICK BEARD SECRETIONS. P:CONTINUE
[2016-06-15 05:23] LABS: BANDED NEUTROPHIL # 1.3 K/uL (0.0-0.1); BANDED NEUTROPHILS % 19 %; LYMPHOCYTE # 0.3 K/uL (0.8-4.0); LYMPHOCYTE % 5 %; MONOCYTE # 0.3 K/uL (0.0-1.0); SEGMENTED NEUTROPHIL # 4.8 K/uL (1.4-9.0); SEGMENTED NEUTROPHIL % 72 %
--- NOTE | 2016-06-15 06:44 | NUR ---
PT SEDATED ON PRECEDEX AT 0.2 MCG/KG/HOUR. LEVOPHED AT 0.1 MCG/KG/MIN. OCTREOTIDE AT 25 ML/H, PROTONIX AT 10 ML/H. CONTINUES ON EXTENDED ZOSYN. PT HAD ALL BLEED FROM NG TONOC, EMERGENT EGD DONE AT BEDSIDE. 6 BANDS PLACED ON ESOPHAGUS VARICES. 1 UNIT OF PRBC FOR HBG OF 6.4. 10 UNITS OF INSULIN, 100ML OF D50, AND KAYEXLATE RECTALLY FOR K LEVEL OF 6.3. ART LINE AND CENTRAL LINE PLACED. 2 25% ALBUMINS GIVEN. LR 500 ML BOLUS GIVEN. PT IS NOT WITHDRAWING SO PRECEDEX WAS DECREASED FROM 0.4 MCG/KG/HOUR. NG REMAINS OUT PER MD ORDER TO NOT DISTURB ESOPHAGEAL BANDS. HGB REMAINS LOW THIS AM AT 6.6, K 5.5 THIS AM. UOP REMAINS MARGINAL. CREATININE 1.1 THIS AM.
[2016-06-15 07:57] LABS: PCO2 31 mmHg (35-45); PO2 156 mmHg (80-90)
[2016-06-15 08:03] LABS: BICARBONATE 19.6 mmol/L (18.0-23.0)
[2016-06-15 08:17] LABS: ALBUMIN 2.3 gm/dL (3.5-5.0); ALK PHOS 113 IU/L (33-138); ALT 57 IU/L (12-78); ANION GAP 12.4 (10.0-19.0); AST 59 IU/L (10-40); BLOOD UREA NITROGEN 35 mg/dL (6-24); CHLORIDE 106 mMol/L (96-110); CO2 21 mMol/L (22-32); CREATININE 0.9 mg/dL (0.6-1.3); ESTIMATED GFR (MDRD EQUATION) > 60; POTASSIUM 5.4 mMol/L (3.7-5.1); SODIUM 134 mMol/L (135-145)
[2016-06-15 08:18] LABS: CALCIUM 7.1 mg/dL (8.5-10.5); TOTAL BILIRUBIN 5.1 mg/dL (0.0-1.5); TOTAL PROTEIN 4.1 g/dL (6.0-8.4)
[2016-06-15 08:23] LABS: MCV 84.7 fl (83.0-98.0); MPV 12.5 fl (9.4-12.4); RBC 2.36 M/uL (4.00-6.00); RDW-CV 16.2 % (11.9-14.6); WBC 8.8 K/uL (4.0-11.0)
[2016-06-15 08:29] LABS: HEMOGLOBIN 6.9 g/dL (12.0-17.0); MCH 29.2 pg (27.0-34.0); MCHC 34.5 gm/dL (32.0-36.5); PLATELET COUNT 64 K/uL (150-450)
[2016-06-15 09:34] LABS: ABSOLUTE NEUTROPHIL CT (ANC) 7.2 K/uL (1.4-9.0); BANDED NEUTROPHIL # 2.3 K/uL (0.0-0.1); BANDED NEUTROPHILS % 26 %; LYMPHOCYTE # 0.8 K/uL (0.8-4.0); LYMPHOCYTE % 9 %; MONOCYTE # 0.8 K/uL (0.0-1.0); SEGMENTED NEUTROPHIL # 4.9 K/uL (1.4-9.0); SEGMENTED NEUTROPHIL % 56 %
[2016-06-15 10:30] LABS: INR - (THERAPEUTIC) 1.6 (0.9-1.1); PROTIME 17.4 SECONDS (9.6-11.1)
--- NOTE | 2016-06-15 10:30 | NUR ---
REC TPN @ 95 ML/HR.
[2016-06-15 12:13] LABS: HEMOGLOBIN 8.2 g/dL (12.0-17.0)
--- NOTE | 2016-06-15 16:59 | NUR ---
Significant Event:NEURO: Patient grimaces with trapezius pinch. Raises eyebrows when asked to open eyes. PERRLA 2 mm. Cough and gag present. Slight spontaneous movement in left upper extremity. CARDIO: Levophed at 0.04 mcg/kg/min to keep MAP > 65. Afebrile. 2 units PRBCs and 2 units FFP given today. Hgb 8.2. Plt 51. RESP: AC 30% PEEP 5. Slightly coarse lung sounds in upper lobes bilaterally. GI/: Adequate urine output. No BM.
[2016-06-15 17:38] LABS: HEMATOCRIT 21.6 % (37.0-53.0)
[2016-06-15 17:39] LABS: HEMOGLOBIN 7.4 g/dL (12.0-17.0)
[2016-06-15 18:14] LABS: ALBUMIN 2.3 gm/dL (3.5-5.0); ALK PHOS 101 IU/L (33-138); ALT 48 IU/L (12-78); ANION GAP 13.2 (10.0-19.0); AST 48 IU/L (10-40); BLOOD UREA NITROGEN 32 mg/dL (6-24); CHLORIDE 107 mMol/L (96-110); CO2 21 mMol/L (22-32); CREATININE 0.8 mg/dL (0.6-1.3); ESTIMATED GFR (MDRD EQUATION) > 60; MAGNESIUM 2.4 mg/dL (1.3-2.6); POTASSIUM 5.2 mMol/L (3.7-5.1); SODIUM 136 mMol/L (135-145); TOTAL BILIRUBIN 4.7 mg/dL (0.0-1.5)
[2016-06-15 18:16] LABS: CALCIUM 7.1 mg/dL (8.5-10.5); TOTAL PROTEIN 4.1 g/dL (6.0-8.4)
[2016-06-15 22:07] LABS: HEMATOCRIT 25.5 % (37.0-53.0)
[2016-06-16 02:15] LABS: BICARBONATE 20.2 mmol/L (18.0-23.0); PCO2 29 mmHg (35-45); PO2 102 mmHg (80-90)
[2016-06-16 02:35] LABS: ALBUMIN 2.3 gm/dL (3.5-5.0); ALK PHOS 98 IU/L (33-138); ALT 46 IU/L (12-78); AST 51 IU/L (10-40); BLOOD UREA NITROGEN 31 mg/dL (6-24); CHLORIDE 108 mMol/L (96-110); CO2 21 mMol/L (22-32); CREATININE 0.8 mg/dL (0.6-1.3); ESTIMATED GFR (MDRD EQUATION) > 60; MAGNESIUM 2.5 mg/dL (1.3-2.6); SODIUM 138 mMol/L (135-145)
[2016-06-16 02:45] LABS: CALCIUM 7.2 mg/dL (8.5-10.5)
[2016-06-16 02:48] LABS: HEMATOCRIT 24.8 % (37.0-53.0); HEMOGLOBIN 8.6 g/dL (12.0-17.0); MCHC 34.7 gm/dL (32.0-36.5); MCV 83.2 fl (83.0-98.0); MPV 11.9 fl (9.4-12.4); RDW-CV 15.9 % (11.9-14.6)
[2016-06-16 02:53] LABS: MCH 28.9 pg (27.0-34.0); PLATELET COUNT 51 K/uL (150-450); RBC 2.98 M/uL (4.00-6.00)
[2016-06-16 02:54] LABS: INR - (THERAPEUTIC) 1.4 (0.9-1.1); PROTIME 15.2 SECONDS (9.6-11.1)
[2016-06-16 04:24] LABS: ABSOLUTE NEUTROPHIL CT (ANC) 3.4 K/uL (1.4-9.0); BANDED NEUTROPHIL # 0.4 K/uL (0.0-0.1); BANDED NEUTROPHILS % 10 %; LYMPHOCYTE # 0.3 K/uL (0.8-4.0); LYMPHOCYTE % 8 %; MONOCYTE # 0.3 K/uL (0.0-1.0); SEGMENTED NEUTROPHIL % 74 %
--- NOTE | 2016-06-16 05:04 | NUR ---
pt remains vented: AC 30%. Pt awaken and agitated on vent. Sedation changed from precedex to versed. pt had a episode of bloody vomit. pt given 2 units of packed red blood cells and 1 unit of platelets. last hgb 8.6. pt follows commands. pt continues on levophed at 0.05 mcg/kg/min, protonix, octrotide, zosyn, ns. pt given 500 ml LR bolus for hypotension.
[2016-06-16 06:02] LABS: HEMATOCRIT 27.1 % (37.0-53.0); HEMOGLOBIN 9.4 g/dL (12.0-17.0)
--- NOTE | 2016-06-16 14:30 | NUR ---
Checked several times today and no family present at time I checked. Per review of patient's chart he lives in [place] with S.O. Will follow.
[2016-06-16 15:21] LABS: BASOPHIL % 0.2 %; EOSINOPHIL # 0.1 K/uL (0.0-0.5); EOSINOPHIL % 1.2 %; HEMATOCRIT 27.2 % (37.0-53.0); HEMOGLOBIN 9.3 g/dL (12.0-17.0); IMMATURE GRANULOCYTE % 0.5 %; LYMPHOCYTE # 0.7 K/uL (0.8-4.0); LYMPHOCYTE % 12.7 %; MCH 28.5 pg (27.0-34.0); MCHC 34.2 gm/dL (32.0-36.5); MCV 83.4 fl (83.0-98.0); MONOCYTE # 0.9 K/uL (0.0-1.0); MONOCYTE % 15.5 %; MPV 12.3 fl (9.4-12.4); NEUTROPHIL % 69.9 %; NRBC % 0.4 /100WBC (0-0.00); RBC 3.26 M/uL (4.00-6.00); RDW-CV 16.3 % (11.9-14.6); WBC 5.7 K/uL (4.0-11.0)
[2016-06-16 15:22] LABS: PLATELET COUNT 58 K/uL (150-450)
--- NOTE | 2016-06-16 15:32 | NUR ---
Significant Event: Patient is sedated on Versed 6mg/hr. He wakes up and follows commnands. He is on 30% FiO2 per the ventilator. Levophed is infusing at 0.04mcg/kg/min to keep MAP>65. Hbg has remained >9. [facility] called today about the patient applying to be on the liver transplant list. They would like to set eyes on the patient given his current state. Dr. Guzman will speak with the patient's liver specialist about need for transfer. Follow up: Monitor Hgb
[2016-06-17 04:28] LABS: BICARBONATE 20.3 mmol/L (18.0-23.0); PCO2 26 mmHg (35-45)
[2016-06-17 04:31] LABS: PO2 179 mmHg (80-90)
[2016-06-17 04:49] LABS: ALBUMIN 2.1 gm/dL (3.5-5.0); ALK PHOS 100 IU/L (33-138); ALT 42 IU/L (12-78); ANION GAP 11.2 (10.0-19.0); AST 51 IU/L (10-40); BLOOD UREA NITROGEN 18 mg/dL (6-24); CHLORIDE 112 mMol/L (96-110); CO2 20 mMol/L (22-32); CREATININE 0.5 mg/dL (0.6-1.3); ESTIMATED GFR (MDRD EQUATION) > 60; MAGNESIUM 2.4 mg/dL (1.3-2.6); POTASSIUM 4.2 mMol/L (3.7-5.1); SODIUM 139 mMol/L (135-145)
[2016-06-17 04:54] LABS: TOTAL BILIRUBIN 4.8 mg/dL (0.0-1.5); TOTAL PROTEIN 4.1 g/dL (6.0-8.4)
--- NOTE | 2016-06-17 05:04 | NUR ---
Significant Event: Patient intubated and sedated with versed. Sedation shut off this AM-planning to extubate today. Follows commands and moves spontaneosuly. Restless at times, trying to sit up and pull at tubes. VSS. Levo gtt off. Mays with good UOP. Remains NPO. Family called for update. Follow up: Continue to monitor. Extubate when ready.
[2016-06-17 05:36] LABS: BASOPHIL % 0.2 %; EOSINOPHIL # 0.1 K/uL (0.0-0.5); EOSINOPHIL % 3.3 %; HEMATOCRIT 26.6 % (37.0-53.0); HEMOGLOBIN 9.2 g/dL (12.0-17.0); IMMATURE GRANULOCYTE % 0.5 %; LYMPHOCYTE # 0.7 K/uL (0.8-4.0); LYMPHOCYTE % 15.5 %; MCH 29.3 pg (27.0-34.0); MCHC 34.6 gm/dL (32.0-36.5); MCV 84.7 fl (83.0-98.0); MONOCYTE # 0.7 K/uL (0.0-1.0); MONOCYTE % 17.4 %; MPV 12.4 fl (9.4-12.4); NEUTROPHIL # (ANC) 2.7 K/uL (1.4-9.0); NEUTROPHIL % 63.1 %; NRBC % 0.5 /100WBC (0-0.00); RBC 3.14 M/uL (4.00-6.00); RDW-CV 16.9 % (11.9-14.6); WBC 4.3 K/uL (4.0-11.0)
[2016-06-17 05:40] LABS: PLATELET COUNT 51 K/uL (150-450)
[2016-06-17 05:45] LABS: INR - (THERAPEUTIC) 1.4 (0.9-1.1); PROTIME 15.5 SECONDS (9.6-11.1)
--- NOTE | 2016-06-17 07:59 | NUR ---
A - NUTRITION F/U. ON VENT, SEDATION OFF, PLANNING ON EXTUBATING TODAY. LABS: GLU 97, BUN/[employer] MANAGER 18/0.5, ALB 2.1. PT W/ 2-3+ BLE EDEMA. EST NEEDS: [id number] KCALS, 94-113 GM PROTEIN, 1 ML/KCAL FLUIDS. D - AT RISK W/ DIFFICULTY SWALLOWING R/T RELIANCE ON VENT AEB NPO STATUS. I - GOAL: 50-75% INTAKE BY DISCHARGE. M/E - WILL OFFER SUPPLEMENTS NEEDED WHEN ORAL DIET RESUMES.
--- NOTE | 2016-06-17 16:55 | NUR ---
Significant Event: GI: No BM. No emesis. RESP: AC 30%, TV 500. Rate 15, PEEP 5. SaO2 99-100%. CARDIO: SBP 120s. HR 70s. Afebrile. NEURO: Follows commands. Drowsy. Follow up: Weaning trial in am.
--- NOTE | 2016-06-17 16:59 | NUR ---
PT IS VENTED ON 30% SATS 94-98%, BREATH SOUNDS SLIGHTLY COARSE AT TIMES, SXN A SMALL TO MODERATE AMOUNT OF YELLOW AND CREAMY SPUTUM, ETCO2 28-34 MOST OF THE DAY, PT WAS TRIALED IN CPAP 5/10 FOR ABOUT 45 MINUTES, PTS RR INCREASED TO 34-40 AND VT 300-450, WILL TRY AGAIN CASSY.
--- NOTE | 2016-06-18 03:40 | NUR ---
Significant Event: Drowsy, but oriented x3. Mumbled speech. VSS. 2L NC. Lungs clear/dim. Abdomen distended and firm. No BM. Adequate output from mast, orange urine. Fentanyl 50 mcg given x3. Follow up: Change status
[2016-06-18 04:10] LABS: ANION GAP 13.3 (10.0-19.0); BLOOD UREA NITROGEN 14 mg/dL (6-24); CHLORIDE 113 mMol/L (96-110); CO2 20 mMol/L (22-32); CREATININE 0.5 mg/dL (0.6-1.3); ESTIMATED GFR (MDRD EQUATION) > 60; MAGNESIUM 2.3 mg/dL (1.3-2.6); PHOSPHORUS 2.7 mg/dL (2.5-4.9); POTASSIUM 4.3 mMol/L (3.7-5.1); SODIUM 142 mMol/L (135-145)
[2016-06-18 04:11] LABS: CALCIUM 6.8 mg/dL (8.5-10.5)
[2016-06-18 04:18] LABS: BASOPHIL % 0.4 %; EOSINOPHIL # 0.2 K/uL (0.0-0.5); EOSINOPHIL % 4.7 %; HEMOGLOBIN 8.7 g/dL (12.0-17.0); IMMATURE GRANULOCYTE % 0.8 %; LYMPHOCYTE # 0.7 K/uL (0.8-4.0); LYMPHOCYTE % 14.6 %; MCHC 33.5 gm/dL (32.0-36.5); MCV 86.7 fl (83.0-98.0); MONOCYTE % 19.4 %; MPV 12.3 fl (9.4-12.4); NEUTROPHIL % 60.1 %; NRBC % 0 /100WBC (0-0.00); RDW-CV 17.2 % (11.9-14.6); WBC 4.9 K/uL (4.0-11.0)
[2016-06-18 04:23] LABS: INR - (THERAPEUTIC) 1.4 (0.9-1.1); PLATELET COUNT 51 K/uL (150-450); PROTIME 15.4 SECONDS (9.6-11.1)
--- NOTE | 2016-06-18 17:31 | NUR ---
Significant Event:NEURO: A&Ox3. Confused at times. Restless at times. GI: 1 large BM today. Clear liquid diet tolerated well. ACTIV: Ambulated in room and to fuller with nurse and PT. RESP: Room air. SaO2 92%. CARDIO: SBP 120s. Afebrile. HR 70s-90s.
--- NOTE | 2016-06-19 05:34 | NUR ---
PT BECOMING MORE ALERT/ORIENTED THIS SHIFT. AMBULATED TO [place] X2. NEURO INTACT OTHER THAN BEING SLIGHTLY DROWSY. HR 70S-90S, BP NORMOTENSIVE. EDEMA PRESENT TO ALL EXTREMITIES. TMAX 99.6. LUNGS CLEAR, REMAINS ON RA. APPETITE GOOD, NO BM THIS SHIFT, BS PRESENT. UOP EXCELLENT. NO NEW/WORSENING SKIN ISSUES. ALL LINES REMAIN INTACT AND PATENT. PRN FENTANYL GIVEN X2 THIS SHIFT. ALEX CARR RN
--- NOTE | 2016-06-19 10:37 | NUR ---
Significant Event:A/O X 3. Ambulates with 1 SBA with gait belt and walker. UP to chair for meals. NSR, HR's 70's. SBP 100's and 90's. O2 > 90% on RA. Strong cough. Tolerating PO fluids. BM yesterday. SL'd. PIV started in L) anterior FA. Pain controlled with 1000 mg tylenol this AM, changed to Ibuprofen, has not received yet. Prior to getting out of bed temp was 99.4, after ambulating with physical therapy was 98.4. Davon removed @ 0910. SO, Teo, is updated and supportive at the bedside. Changed to PCU status. Follow up:Advance diet when GI says its OK. Remove Central line when GI says OK.
--- NOTE | 2016-06-19 17:29 | NUR ---
Significant Event: A/OX3, VSS ON ROOM AIR. PT. GETS UP SBA IN ROOM, WALKED IN HALLS TODAY WITH PHYSICAL THERAPY. IV TO R)FA HAS ALBUMIN RUNNING. IV LASIX TO BE GIVEN ONCE DONE. NIELSON PULLED AT 0910 IN ICU, PT. VOIDED 150mL AT 1710, URINE IS TEA COLORED. BELLY DISTENDED D/T ASCITES. NO COMPLAINTS OF PAIN. FAMILY IN ROOM. Follow up: CONTINUE WITH POC.
--- NOTE | 2016-06-20 05:36 | NUR ---
Significant Event: Patient is alert and oriented x 3. VSS on room air. HRs in the 70s-80s. SBPs in the 1 teens. Highest temp of 99.8. Up with stand by assist, walker, and gait belt. Bilateral lower extremity edema. Abdomen distended, bowel sounds present. Voiding well. Fentanyl given for headache last at 0325. Right forearm IV, saline locked. Receiving Albumin twice daily with Lasix to give afterwards. On 2 gram Sodium diet. Zofran given at 1850 for nausea. Patient is pleasant and cooperative with cares. Follow up:
[2016-06-20 06:07] LABS: HEMATOCRIT 22.6 % (37.0-53.0); MCV 86.3 fl (83.0-98.0); MPV 13.1 fl (9.4-12.4); RBC 2.62 M/uL (4.00-6.00); RDW-CV 17.5 % (11.9-14.6); WBC 3.3 K/uL (4.0-11.0)
[2016-06-20 06:09] LABS: HEMOGLOBIN 7.5 g/dL (12.0-17.0); MCH 28.6 pg (27.0-34.0); MCHC 33.2 gm/dL (32.0-36.5); PLATELET COUNT 41 K/uL (150-450)
[2016-06-20 06:30] LABS: ALBUMIN 3.2 gm/dL (3.5-5.0); ALK PHOS 95 IU/L (33-138); ALT 30 IU/L (12-78); ANION GAP 11.6 (10.0-19.0); AST 41 IU/L (10-40); BLOOD UREA NITROGEN 10 mg/dL (6-24); CALCIUM 7.6 mg/dL (8.5-10.5); CHLORIDE 111 mMol/L (96-110); CO2 23 mMol/L (22-32); CREATININE 0.6 mg/dL (0.6-1.3); ESTIMATED GFR (MDRD EQUATION) > 60; POTASSIUM 3.6 mMol/L (3.7-5.1); SODIUM 142 mMol/L (135-145)
[2016-06-20 06:32] LABS: TOTAL PROTEIN 4.7 g/dL (6.0-8.4)
[2016-06-20 07:46] LABS: ABSOLUTE NEUTROPHIL CT (ANC) 2.1 K/uL (1.4-9.0); BANDED NEUTROPHILS % 1 %; LYMPHOCYTE # 0.6 K/uL (0.8-4.0); LYMPHOCYTE % 18 %; MONOCYTE # 0.5 K/uL (0.0-1.0); SEGMENTED NEUTROPHIL % 61 %
--- NOTE | 2016-06-20 11:06 | NUR ---
reviewed student charting and on the floor from [id number] [id number]
--- NOTE | 2016-06-20 13:30 | NUR ---
Introduced self and role of care management to patient. Patient lives in [place] with S.O. He plans home when ready for discharge. He says S.O. will assist as needed at home. He says he has a couple of walkers at home, but usually doesn't use a walker. Does not anticipate discharge needs at this time. He thinks he may go home this w/e. Will follow.
--- NOTE | 2016-06-20 13:35 | NUR ---
A - NUT F/U. NAUSEA - MEDS GIVEN. ABD DISTENDED D/T ASCITES. 1-2+ EDEMA. LABS: ACCUCHECK WNL-REAS, K+ 3.6, GLU 112, ALB 3.2, TOT BILI 3.0, WBC 3.3, HGB/HCT 7.5/22.6 MEDS: PROTONIX, LASIX, LACTULOSE, CIPRO, ALDACTONE DIET: 2-3 GM SODIUM. INTAKE: 100% NEEDS: [id number] KCAL, 94-113 G PRO D - NO LONGER AT NUTRITION RISK W/ ADEQUATE NUTRIENT INTAKE. NO NUTRITION RELATED DIAGNOSIS IDENTIFIED AT THIS TIME. I - GOAL FOR INTAKE TO REMAIN 75-100% FOR DURATION OF STAY. M/E - WILL ASSIST NEEDED.
[2016-06-20 17:22] LABS: INR - (THERAPEUTIC) 1.6 (0.9-1.1)
--- NOTE | 2016-06-20 18:50 | NUR ---
RECEIVED A CALL FROM [facility] THEY WANTED TO CONFIRM HE HAD BEEN ACCEPTED TO THE TRANSPLANT LIST. PATIENT HAS BEEN UP IN ROOM AND DOING WELL. HE HAS RECIEVE FENTANYL 2 TIMES FOR PAIN.
[2016-06-21 05:27] LABS: BASOPHIL % 0.3 %; EOSINOPHIL # 0.1 K/uL (0.0-0.5); EOSINOPHIL % 3.6 %; HEMATOCRIT 22.9 % (37.0-53.0); IMMATURE GRANULOCYTE % 0.3 %; LYMPHOCYTE # 0.7 K/uL (0.8-4.0); LYMPHOCYTE % 17.8 %; MCV 87.7 fl (83.0-98.0); MONOCYTE # 0.7 K/uL (0.0-1.0); MONOCYTE % 18.3 %; MPV 10.3 fl (9.4-12.4); NEUTROPHIL # (ANC) 2.2 K/uL (1.4-9.0); NEUTROPHIL % 59.7 %; NRBC % 0 /100WBC (0-0.00); RBC 2.61 M/uL (4.00-6.00); RDW-CV 18.1 % (11.9-14.6); WBC 3.7 K/uL (4.0-11.0)
[2016-06-21 05:33] LABS: INR - (THERAPEUTIC) 1.7 (0.9-1.1); PROTIME 18.5 SECONDS (9.6-11.1)
[2016-06-21 05:35] LABS: HEMOGLOBIN 7.5 g/dL (12.0-17.0); MCH 28.7 pg (27.0-34.0); MCHC 32.8 gm/dL (32.0-36.5); PLATELET COUNT 32 K/uL (150-450)
[2016-06-21 05:45] LABS: ALBUMIN 3.1 gm/dL (3.5-5.0); ALK PHOS 79 IU/L (33-138); ALT 27 IU/L (12-78); ANION GAP 12.7 (10.0-19.0); AST 38 IU/L (10-40); BLOOD UREA NITROGEN 8 mg/dL (6-24); CALCIUM 7.5 mg/dL (8.5-10.5); CHLORIDE 109 mMol/L (96-110); CO2 23 mMol/L (22-32); CREATININE 0.6 mg/dL (0.6-1.3); ESTIMATED GFR (MDRD EQUATION) > 60; POTASSIUM 3.7 mMol/L (3.7-5.1); SODIUM 141 mMol/L (135-145); TOTAL BILIRUBIN 3.4 mg/dL (0.0-1.5)
[2016-06-21 05:49] LABS: TOTAL PROTEIN 4.4 g/dL (6.0-8.4)
--- NOTE | 2016-06-21 07:10 | NUR ---
Significant Event: FENTANYL 25MCG GIVEN X2 FOR A HEADACHE. SOME RELIEF NOTED. MAX TEMP OF 99.9 AND LOWEST WAS 99 OVERNIGHT. ZOFRAN GIVEN X1 FOR A SMALL AMOUNT OF NAUSEA. REMAINS ON ROOM AIR. A&O X3. UP AD ALYSON TO BR. Follow up:
--- NOTE | 2016-06-21 17:20 | NUR ---
Significant Event: GREAT DAY NO CHANGES, WALKED IN THE [place], TOOK A SHOWER, SHAVED. Follow up: MONITOR
[2016-06-22 02:01] LABS: INR - (THERAPEUTIC) 1.6 (0.9-1.1); PROTIME 17.4 SECONDS (9.6-11.1)
[2016-06-22 02:05] LABS: ALBUMIN 3.4 gm/dL (3.5-5.0); ALK PHOS 82 IU/L (33-138); ALT 29 IU/L (12-78); ANION GAP 14.7 (10.0-19.0); AST 35 IU/L (10-40); BLOOD UREA NITROGEN 8 mg/dL (6-24); CHLORIDE 111 mMol/L (96-110); CO2 21 mMol/L (22-32); CREATININE 0.7 mg/dL (0.6-1.3); ESTIMATED GFR (MDRD EQUATION) > 60; POTASSIUM 3.7 mMol/L (3.7-5.1); SODIUM 143 mMol/L (135-145); TOTAL BILIRUBIN 3.1 mg/dL (0.0-1.5)
[2016-06-22 02:08] LABS: TOTAL PROTEIN 4.8 g/dL (6.0-8.4)
[2016-06-22 05:08] LABS: BLOOD URINE 10 /UL (NEGATIVE); COLOR URINE YELLOW (YELLOW); GLUCOSE URINE NEGATIVE (NEGATIVE); KETONE URINE NEGATIVE (NEGATIVE); LEUKOCYTES URINE 25 /UL (NEGATIVE); NITRITE URINE NEGATIVE (NEGATIVE); PROTEIN URINE 15 mg/dL (NEGATIVE); SPEC GRAVITY URINE 1.015 (1.003-1.035); TURBIDITY URINE CLEAR (CLEAR); UROBILINOGEN URINE 1 mg/dL (NORMAL)
[2016-06-22 05:18] LABS: AMORPHOUS URINE 1+ (NEGATIVE); BACTERIA URINE NEGATIVE (NEGATIVE); MUCUS URINE 2+ (NEGATIVE)
[2016-06-22 09:58] LABS: HEMATOCRIT 24.2 % (37.0-53.0); MCH 29.4 pg (27.0-34.0); MCHC 33.1 gm/dL (32.0-36.5); MPV 11.7 fl (9.4-12.4); RBC 2.72 M/uL (4.00-6.00); RDW-CV 18.9 % (11.9-14.6)
[2016-06-22 10:00] LABS: PLATELET COUNT 35 K/uL (150-450)
[2016-06-22 10:55] LABS: ABSOLUTE NEUTROPHIL CT (ANC) 4.7 K/uL (1.4-9.0); BANDED NEUTROPHIL # 0.2 K/uL (0.0-0.1); BANDED NEUTROPHILS % 3 %; LYMPHOCYTE # 0.2 K/uL (0.8-4.0); LYMPHOCYTE % 4 %; MONOCYTE # 0.1 K/uL (0.0-1.0); SEGMENTED NEUTROPHIL # 4.6 K/uL (1.4-9.0); SEGMENTED NEUTROPHIL % 91 %
[2016-06-22 11:34] LABS: BILIRUBIN URINE NEGATIVE (NEGATIVE); BLOOD URINE NEGATIVE /UL (NEGATIVE); COLOR URINE YELLOW (YELLOW); GLUCOSE URINE NEGATIVE (NEGATIVE); KETONE URINE NEGATIVE (NEGATIVE); LEUKOCYTES URINE NEGATIVE /UL (NEGATIVE); NITRITE URINE NEGATIVE (NEGATIVE); PROTEIN URINE NEGATIVE (NEGATIVE); SPEC GRAVITY URINE 1.015 (1.003-1.035); TURBIDITY URINE CLEAR (CLEAR); UROBILINOGEN URINE NORMAL (NORMAL)
--- NOTE | 2016-06-22 19:42 | NUR ---
Significant Event: AOx3, c/o some pain to RUQ but refuses pain medication. Febrile to 102.1 this shift, Dr Hidalgo aware. Tachycardic with fever. SBP to 96 x1 after a.m. aldactone given. Edema to legs/feet bilat. PIV to L) working well. Up ad sabina and tolerates well. Dr Jeter saw per Dr Hidalgo request d/t fever. Pleasant and cooperative with cares. Follow up: Per plan of care.
--- NOTE | 2016-06-23 03:23 | NUR ---
Significant Event: PT STARTED OFF WITH WITH HE CALLED A BAD REACTION TO HIS SUPPER. HE SAID HIS SALAD DID NOT SIT WELL WITH HIM AND HE FELT TERRIBLE. ZOFRAN WAS GIVEN AT 1850 WITH SOME RELIEF FOR A SHORT TIME. HE STARTED RUNNING A FEVER OF 101.5. DR. HIGH NOTIFIED. HE ORDERED BC X2 A UA WITH CULTURE AND A PORTABLE CHEST XRAY. VANCO, ZOSYN AND FLAGYL WERE ALL ORDERED A 1 TIME DOSE. PT THEN STARTED TO C/O OF UPPER ABD PAIN THAT HE SAID FELT LIKE "LIVER PAIN". 25 MCG OF FENTANYL WAS GIVEN FOR A 10/10 PAIN. THIS TOOK IT DOWN TO A 7/10 FOR ABOUT AN HR. DR. HIGH NOTIFIED AND HE ORDERED ANOTHER 1 TIME DOSE OF 25MCG OF FENTANYL. AT 0515, PT WAS HAVING HARD CHILLS BUT HIS TEMP WAS ONLY 99.3. HE WAS STILL HAVING "LIVER PAIN". DR. HIGH WAS NOTIFIED AGAIN AND HE SAID HE WAS GONNA HAVE TO COME SEE HIM 1ST. WITHIN 10-15 MIN, THE PT WAS NO LONGER CHILLING AND HE SAID HE FELT BETTER. THE PAIN WAS ALSO BETTER WELL. AT THIS POINT THE ZOSYN AND FLAGYL HAD BEEN GIVEN. DR. HIGH CAME AROUND AND WAS UPDATED. NO NEW ORDERS WERE RECEIVED. Follow up:
[2016-06-23 04:16] LABS: INR - (THERAPEUTIC) 1.9 (0.9-1.1); PROTIME 20.7 SECONDS (9.6-11.1)
[2016-06-23 04:30] LABS: ALK PHOS 77 IU/L (33-138); ALT 27 IU/L (12-78); ANION GAP 14.6 (10.0-19.0); AST 36 IU/L (10-40); BLOOD UREA NITROGEN 12 mg/dL (6-24); CHLORIDE 112 mMol/L (96-110); CO2 20 mMol/L (22-32); CREATININE 0.6 mg/dL (0.6-1.3); ESTIMATED GFR (MDRD EQUATION) > 60; POTASSIUM 3.6 mMol/L (3.7-5.1); SODIUM 143 mMol/L (135-145); TOTAL BILIRUBIN 3.5 mg/dL (0.0-1.5)
[2016-06-23 04:38] LABS: CALCIUM 7.3 mg/dL (8.5-10.5); TOTAL PROTEIN 4.5 g/dL (6.0-8.4)
--- NOTE | 2016-06-23 05:41 | NUR ---
Significant Event: UP AD ALYSON TO THE BR. FENTANYL X1 FOR HEADACHE. TEMP AT START OF SHIFT WAS 103. DR. CHRISTENSEN NOTIFIED AND HE CALLED GI FOR INPUT. A PARACENTESIS WAS ORDERED FOR TODAY WELL SOME LABS. IV FLAGYL WAS ALSO STARTED. BY 0300, HE WAS DOWN TO 100.1. DID HAVE A SMALL INCONTINENT BM THIS MORNING. THE CHAIR WAS IN HIS WAY AND HE COULDN'T MAKE IT IN TIME. HE NOT SLEPT MUCH. REMAINS ON ROOM AIR. Follow up:
[2016-06-23 05:45] LABS: BASOPHIL % 0.5 %; EOSINOPHIL # 0.2 K/uL (0.0-0.5); EOSINOPHIL % 2.4 %; HEMATOCRIT 26.2 % (37.0-53.0); HEMOGLOBIN 8.5 g/dL (12.0-17.0); IMMATURE GRANULOCYTE % 0.3 %; LYMPHOCYTE # 0.6 K/uL (0.8-4.0); LYMPHOCYTE % 9.3 %; MCH 29.2 pg (27.0-34.0); MCHC 32.4 gm/dL (32.0-36.5); MONOCYTE # 0.4 K/uL (0.0-1.0); MONOCYTE % 5.8 %; NEUTROPHIL # (ANC) 5.2 K/uL (1.4-9.0); NEUTROPHIL % 81.7 %; NRBC % 0 /100WBC (0-0.00); PTT 62 SECONDS (25-32); RBC 2.91 M/uL (4.00-6.00); RDW-CV 19.3 % (11.9-14.6); WBC 6.4 K/uL (4.0-11.0)
[2016-06-23 05:47] LABS: PLATELET COUNT 34 K/uL (150-450)
[2016-06-23 13:33] LABS: INR - (THERAPEUTIC) 1.7 (0.9-1.1); PROTIME 19.2 SECONDS (9.6-11.1)
--- NOTE | 2016-06-23 19:44 | NUR ---
Significant Event: AOx3, up ad sabina in room and tolerates well. Tachycardic in 100s, temps 101.0,101.8,100.9, SBP 110s-130s, RA. 2 units FFP given to day with plan to do paracentesis this afternoon; unable to do d/t radiologist scheduling. Multiple small loose stools, Cdiff positive this shift. Precautions initiated. Multiple antibiotics given, 2 new PIVs to L) FA & hand. C/o abdominal pain 01/13 this afternoon; states "I need the tap". Fentynal given per order, relief noted, but pain has returned as of this note. Patient seems more discouraged today, states he wants to feel better. Pleasant and cooperative. Follow up: Early PT/INR ordered for tomorrow with order for FFP if >1.5. Plan is for paracentesis michael. ID order for Wed.
--- NOTE | 2016-06-24 05:55 | NUR ---
Significant Event:VSS.RA.PT C/O PAIN TO CHEST,MIDSTERNUM. HOSPITALIST NOTFIED, ORDERS FOR CARDIAC ENZYME AND EKG DONE. CHANGE IN PAIN MEDICATIONS WELL WITH RELIEF. PT WITH C-DIFF AND CONTACT PRECAUTIONS. PT VOIDED 200CC AND BLADDER SCAN INDICATED >500CC MAX 999CC, ORDER OBTAINED FOR STRAIGHT CATHX1. PT ABLE TO VOID AGAIN BUT FELT HE STILL HAD TO EMPTY BLADDER, SO PROCEEDED TO STRAIGHT CATH WITH NO OUTPUT. TAP PENDING INR RESULTS. Follow up: LABS AND TAP
[2016-06-24 06:14] LABS: INR - (THERAPEUTIC) 1.8 (0.9-1.1); PROTIME 20.2 SECONDS (9.6-11.1)
[2016-06-24 06:18] LABS: ALBUMIN 3.1 gm/dL (3.5-5.0); ALK PHOS 70 IU/L (33-138); ALT 27 IU/L (12-78); ANION GAP 15.4 (10.0-19.0); AST 29 IU/L (10-40); BLOOD UREA NITROGEN 10 mg/dL (6-24); CHLORIDE 111 mMol/L (96-110); CO2 20 mMol/L (22-32); CREATININE 0.6 mg/dL (0.6-1.3); ESTIMATED GFR (MDRD EQUATION) > 60; POTASSIUM 3.4 mMol/L (3.7-5.1); SODIUM 143 mMol/L (135-145); TOTAL BILIRUBIN 3.7 mg/dL (0.0-1.5)
[2016-06-24 06:20] LABS: CALCIUM 7.3 mg/dL (8.5-10.5); TOTAL PROTEIN 4.7 g/dL (6.0-8.4)
[2016-06-24 10:21] LABS: INR - (THERAPEUTIC) 1.7 (0.9-1.1); PROTIME 18.2 SECONDS (9.6-11.1)
[2016-06-24 14:11] LABS: INR - (THERAPEUTIC) 1.6 (0.9-1.1); PROTIME 17.1 SECONDS (9.1-10.7)
--- NOTE | 2016-06-24 17:24 | NUR ---
Spoke with patient and updated him on information from his insurance and that [facility] has provided notificatio of authorization of his stay. He plans home when ready for discharge. Says he feels better with the fluid taken off today and just waiting for the c diff to get better. Will follow.
--- NOTE | 2016-06-24 17:55 | NUR ---
Significant Event: VSS ON RA WITH HIGH TEMP 99.4 TODAY. NO C/O PAIN WITH NO MEDS GIVEN. PATIENT STATES FEELING BETTER AFTER PARACENTESIS WITH 5LITERS REMOVED. LLQ PUNCTURE SITE WITH GAUZE AND TEGADERM C/D/I. PIV TO R) HAND DC'D ACCIDENTALLY BY PATIENT. R) FA PIV WITH IV ATB CONTINUED. 2 UNITS FFP GIVEN TODAY PRIOR TO TAPPING WITH INR 1.6 POST TRANSFUSIONS. UP IN ROOM AND TO BATHROOM AD ALYSON. BM X3 PER PATIENT REPORT. VOIDS ADEQUATE AMOUNT. PARACENTESIS FLUID SENT FOR CYTOLOGY. EATING AND DRINKING WELL. CONTINUES ON ISOLATION FOR CDIFF. Follow up: LABS IN AM. CONT TO MONITOR VITALS AND TEMPERATURE.
[2016-06-24 18:09] LABS: PERITONEAL FLUID TURBIDITY CLEAR (CLEAR)
[2016-06-24 18:47] LABS: % PERITONEAL FLUID MESO 5 % (0-0); % PERITONEAL FLUID MONO/MACRO 71 % (0-0); % PERITONEAL FLUID NEUT 14 % (0-25)
[2016-06-25 04:44] LABS: BASOPHIL % 0.3 %; EOSINOPHIL # 0.2 K/uL (0.0-0.5); EOSINOPHIL % 5.4 %; IMMATURE GRANULOCYTE % 0.3 %; LYMPHOCYTE # 0.5 K/uL (0.8-4.0); LYMPHOCYTE % 15.5 %; MONOCYTE # 0.4 K/uL (0.0-1.0); MPV 13.7 fl (9.4-12.4); NEUTROPHIL # (ANC) 2.3 K/uL (1.4-9.0); NEUTROPHIL % 67.5 %; NRBC % 0 /100WBC (0-0.00); RDW-CV 19.4 % (11.9-14.6); WBC 3.4 K/uL (4.0-11.0)
[2016-06-25 04:50] LABS: HEMOGLOBIN 6.3 g/dL (12.0-17.0); MCH 28.9 pg (27.0-34.0); RBC 2.18 M/uL (4.00-6.00)
[2016-06-25 04:51] LABS: HEMATOCRIT 19.4 % (37.0-53.0); MCHC 32.5 gm/dL (32.0-36.5); PLATELET COUNT 40 K/uL (150-450)
[2016-06-25 04:58] LABS: INR - (THERAPEUTIC) 1.8 (0.9-1.1); PROTIME 20.2 SECONDS (9.6-11.1)
[2016-06-25 05:19] LABS: ALK PHOS 68 IU/L (33-138); ALT 20 IU/L (12-78); ANION GAP 13.5 (10.0-19.0); AST 24 IU/L (10-40); BLOOD UREA NITROGEN 7 mg/dL (6-24); CHLORIDE 109 mMol/L (96-110); CO2 22 mMol/L (22-32); CREATININE 0.6 mg/dL (0.6-1.3); ESTIMATED GFR (MDRD EQUATION) > 60; POTASSIUM 3.5 mMol/L (3.7-5.1); SODIUM 141 mMol/L (135-145); TOTAL BILIRUBIN 3.1 mg/dL (0.0-1.5)
[2016-06-25 05:21] LABS: CALCIUM 7.1 mg/dL (8.5-10.5); TOTAL PROTEIN 4.5 g/dL (6.0-8.4)
[2016-06-25 11:55] LABS: HEMOGLOBIN 6.7 g/dL (12.0-17.0)
--- NOTE | 2016-06-25 16:57 | NUR ---
Significant Event: PT A/O X3, VSS, PT UP INDEPENT IN ROOM, WORK WITH THERAPY, AMBULATE IN [place] - TOLERATE WELL. CHANGES TO ANTIBIOTICS. ORDER FOR 1 UNIT PRBC TRANSFUSE. CALL LIGHT AND PERSONAL ITEMS IN REACH. QUESTIONS/CONCERNS ADDRESSED THIS TOD. Follow up:CONTINUE TO [facility], CONTINUE PER PLAN OF CARE.
--- NOTE | 2016-06-26 04:40 | NUR ---
Significant Event: Patient alert and oriented x 3. Denies pain throughout entire shift. Denies shortness of breath. Remains on RA. Patient up to bathroom ad sabina. BM x 2 noted on this shift. only 1 void for 225 ml on this shift. Patient abdomen remains distended. edema continues in BLE. SBP 110's. no distress noted. IV flushed without issue. Follow up: Continue to monitor per POC
[2016-06-26 05:13] LABS: BASOPHIL % 0.7 %; EOSINOPHIL # 0.1 K/uL (0.0-0.5); EOSINOPHIL % 4.9 %; HEMATOCRIT 20.5 % (37.0-53.0); IMMATURE GRANULOCYTE % 0.4 %; LYMPHOCYTE # 0.5 K/uL (0.8-4.0); LYMPHOCYTE % 19.1 %; MCV 85.8 fl (83.0-98.0); MONOCYTE # 0.5 K/uL (0.0-1.0); MONOCYTE % 15.9 %; MPV 12.8 fl (9.4-12.4); NEUTROPHIL # (ANC) 1.7 K/uL (1.4-9.0); NRBC % 0 /100WBC (0-0.00); RBC 2.39 M/uL (4.00-6.00); RDW-CV 19.6 % (11.9-14.6); WBC 2.8 K/uL (4.0-11.0)
[2016-06-26 05:19] LABS: INR - (THERAPEUTIC) 1.9 (0.9-1.1); PROTIME 21.4 SECONDS (9.6-11.1)
[2016-06-26 05:28] LABS: HEMOGLOBIN 6.9 g/dL (12.0-17.0); MCH 28.9 pg (27.0-34.0); MCHC 33.7 gm/dL (32.0-36.5); PLATELET COUNT 31 K/uL (150-450)
[2016-06-26 05:31] LABS: ALBUMIN 2.9 gm/dL (3.5-5.0); ALK PHOS 61 IU/L (33-138); ALT 19 IU/L (12-78); ANION GAP 13.3 (10.0-19.0); AST 22 IU/L (10-40); BLOOD UREA NITROGEN 6 mg/dL (6-24); CHLORIDE 108 mMol/L (96-110); CO2 22 mMol/L (22-32); CREATININE 0.5 mg/dL (0.6-1.3); ESTIMATED GFR (MDRD EQUATION) > 60; POTASSIUM 3.3 mMol/L (3.7-5.1); SODIUM 140 mMol/L (135-145); TOTAL BILIRUBIN 3.6 mg/dL (0.0-1.5)
[2016-06-26 05:32] LABS: CALCIUM 7.1 mg/dL (8.5-10.5); TOTAL PROTEIN 4.3 g/dL (6.0-8.4)
--- NOTE | 2016-06-26 09:16 | NUR ---
PT SCREENED D/T LOS. INTAKE MOSTLY 75-100% MEETING NEEDS. PT REMAINS NOT AT RISK. WILL ASSIST NEEDED.
--- NOTE | 2016-06-26 17:10 | NUR ---
Significant Event: PT A/O X3, VSS, PT UP AT ALYSON IN ROOM, PT WORK WITH THERAPY THIS TOD, AMBULATE IN HALLS, WORK ON PUZZELS W/ SPEECH. PT STATES LAST STOOL WAS MORE FORMED. RUQ ABD DOPPLER/ULTRASOUND - TIP. KCL ORDERED FOR REPLACEMENT. CALL LIGHT AND PERSONAL ITEMS IN REACH, QUESTIONS/CONCERNS ADDRESSED THIS TOD. Follow up: AM LABS, CONTINUE TO [facility], CONTINUE PER PLAN OF CARE
[2016-06-27 04:21] LABS: BASOPHIL % 0.3 %; EOSINOPHIL # 0.2 K/uL (0.0-0.5); EOSINOPHIL % 6.2 %; HEMATOCRIT 21.8 % (37.0-53.0); IMMATURE GRANULOCYTE % 0.3 %; LYMPHOCYTE # 0.6 K/uL (0.8-4.0); LYMPHOCYTE % 18.9 %; MCV 87.6 fl (83.0-98.0); MONOCYTE # 0.6 K/uL (0.0-1.0); MONOCYTE % 17.2 %; NEUTROPHIL # (ANC) 1.9 K/uL (1.4-9.0); NEUTROPHIL % 57.1 %; NRBC % 0 /100WBC (0-0.00); RBC 2.49 M/uL (4.00-6.00); WBC 3.4 K/uL (4.0-11.0)
[2016-06-27 04:23] LABS: HEMOGLOBIN 7.2 g/dL (12.0-17.0); MCH 28.9 pg (27.0-34.0); PLATELET COUNT 40 K/uL (150-450)
[2016-06-27 04:32] LABS: INR - (THERAPEUTIC) 1.9 (0.9-1.1); PROTIME 21.4 SECONDS (9.6-11.1)
[2016-06-27 04:39] LABS: ALBUMIN 2.9 gm/dL (3.5-5.0); ALK PHOS 73 IU/L (33-138); ALT 18 IU/L (12-78); ANION GAP 12.9 (10.0-19.0); AST 24 IU/L (10-40); BLOOD UREA NITROGEN 7 mg/dL (6-24); CHLORIDE 109 mMol/L (96-110); CO2 21 mMol/L (22-32); CREATININE 0.4 mg/dL (0.6-1.3); ESTIMATED GFR (MDRD EQUATION) > 60; POTASSIUM 3.9 mMol/L (3.7-5.1); SODIUM 139 mMol/L (135-145)
[2016-06-27 04:43] LABS: CALCIUM 7.2 mg/dL (8.5-10.5); TOTAL BILIRUBIN 2.5 mg/dL (0.0-1.5); TOTAL PROTEIN 4.4 g/dL (6.0-8.4)
--- NOTE | 2016-06-27 06:03 | NUR ---
Significant Event: Morphine x 1 for abdominal pain. patient alert and oriented, on RA, continues on iso for cdiff. Patient reports that stools are becoming more formed. patient urine output only 150 ml plus void while on toilet that wasnt captured for measurement. Follow up: continue to monitor per POC.
[2016-06-27] MEDS ORDERED: BUMEX1 MG PO (11:42)
[2016-06-27] MEDS ORDERED: VANCOCIN HCL125 MG PO (11:43)
[2016-06-27] MEDS ORDERED: ZOFRAN4 MG PO (13:38)
--- NOTE | 2016-06-27 15:09 | NUR ---
PATIENT GIVEN WRITTEN DISMISSAL INSTRUCTIONS INCLUDING NEW HOME MEDICATION LIST WITH INFORMATION ON NEW MEDS, PRESCRIPTIONS, FOLLOW-UP APPOINTMENT TIMES, DIET AND ACTIVITY RESTRICTIONS. PATIENT STATES UNDERSTANDING OF INFORMATION DISCUSSED WITH RN. TELEMETRY AND PIV TO R) JENNIFER VERMA DC'D WITH JANET APPLIED. PATIENT SHOWERED, DRESSED AND AMBULATE TO FRONT OF [facility] ENTRANCE WITH RN AND BELONGINGS AT 1425 WITH TAXI VOUCHER FOR RIDE HOME.
[2016-07-08] MEDS ORDERED: OSCAL500 MG PO (17:52)
[2016-07-08] MEDS ORDERED: ENULOSE UD L30 ML/EA PO (17:54)
[2016-07-08] MEDS ORDERED: PROTONIX40 MG PO (17:55)
[2016-07-08] MEDS ORDERED: ALDACTONE25 MG PO (17:55)
[2016-07-08] MEDS ORDERED: LASIX20 MG PO (17:55)
[2016-07-08] MEDS ORDERED: CIPRO500 MG PO (17:56)
[2016-07-08] MEDS ORDERED: ZOFRAN4 MG PO (17:56)
== END 2016-06-27 14:25 | disposition disaster alternative care site (69) | DRG 432 ==
LOC: GMED 07:33 → GPCU 09:22 → GICU 09:22 → GPCU 06-19 12:07
PROVIDERS: Emergency Medicine; Family Medicine; Internal Medicine; Internal Medicine Gastroenterology; Registered Nurse; ADMIT Family Medicine
PROC: 06L34CZ Occlusion of Esophageal Vein with Extraluminal Device, Percutaneous Endoscopic Approach (ICD-10-PCS; 2016-06-14)
PROC: 0W3P8ZZ Control Bleeding in Gastrointestinal Tract, Via Natural or Artificial Opening Endoscopic (ICD-10-PCS; 2016-06-14)
PROC: 30233N1 Transfusion of Nonautologous Red Blood Cells into Peripheral Vein, Percutaneous Approach (ICD-10-PCS; 2016-06-14)
PROC: 30233K1 Transfusion of Nonautologous Frozen Plasma into Peripheral Vein, Percutaneous Approach (ICD-10-PCS; 2016-06-14)
PROC: 0BH17EZ Insertion of Endotracheal Airway into Trachea, Via Natural or Artificial Opening (ICD-10-PCS; 2016-06-14)
PROC: 5A1945Z Respiratory Ventilation, 24-96 Consecutive Hours (ICD-10-PCS; 2016-06-14)
PROC: 0W9G3ZZ Drainage of Peritoneal Cavity, Percutaneous Approach (ICD-10-PCS; 2016-06-14)
PROC: 02HV33Z Insertion of Infusion Device into Superior Vena Cava, Percutaneous Approach (ICD-10-PCS; principal; 2016-06-15)
PROC: 03HY32Z Insertion of Monitoring Device into Upper Artery, Percutaneous Approach (ICD-10-PCS; principal; 2016-06-15)
PROC: 30233N1 Transfusion of Nonautologous Red Blood Cells into Peripheral Vein, Percutaneous Approach (ICD-10-PCS; 2016-06-15)
DX: K74.60 Unspecified cirrhosis of liver (principal); I85.11 Secondary esophageal varices with bleeding; R57.1 Hypovolemic shock; J96.01 Acute respiratory failure with hypoxia; A41.9 Sepsis, unspecified organism; D62 Acute posthemorrhagic anemia; R18.8 Other ascites; E87.4 Mixed disorder of acid-base balance; K76.6 Portal hypertension; A04.7 Enterocolitis due to Clostridium difficile; I10 Essential (primary) hypertension; F32.9 Major depressive disorder, single episode, unspecified; F10.21 Alcohol dependence, in remission; Z91.14 Patient's other noncompliance with medication regimen; R51 Headache; B18.2 Chronic viral hepatitis C; E87.5 Hyperkalemia; K72.90 Hepatic failure, unspecified without coma; D69.6 Thrombocytopenia, unspecified; E87.6 Hypokalemia
CPT/HCPCS: C9113; J0696; J1610; J1940; J2060; J2250; J2270; J2354; J2405; J2543; J3010; J3370; J7030; J7040; J7050; J7060; J7120; P9016; P9017; P9035; P9047

== ENCOUNTER → 2016-06-14 | Outpatient (CLI) | payer MEDICAID ==
[~2016-06-14] MED LIST changes: +ATIVAN 1 MG1 MG PO; +BACTRIM 400-801 EACH PO; +BUMEX1 MG PO; +CALCITRATE + V1 EACH PO; +CELLCEPT500 MG PO; +CITRACAL950 MG PO; +COLACE100 MG PO; +COREG6.25 MG PO; +DELTASONE5 MG PO; +DULCOLAX5 MG PO; +HYDRODIURIL25 MG PO; +LASIX20 MG PO; +LIDOCAINE 5% PATCH TOP; +MIRALAX PO527 GM/BOT PO; +NORVASC10 MG PO; +NYSTATIN100000 UNI PO; +OSCAL500 MG PO; +OXYCODONE HCL5 MG PO; +PROGRAF 1MG CAPS1 MG PO; +PROGRAF5 MG PO; +VANCOCIN HCL125 MG PO; +ZOFRAN4 MG PO; +ZOVIRAX400 MG PO
== END | disposition disaster alternative care site (69) ==
LOC: GAMB 07:09
DX: R11.2 Nausea with vomiting, unspecified (principal); Z79.899 Other long term (current) drug therapy
CPT/HCPCS: A0425; A0429

== ENCOUNTER 2016-06-29 15:59 | Inpatient (IN) | payer MEDICAID ==
[~2016-06-29] VITALS: Ht 182.9 cm; Wt 83.5 kg
--- NOTE | ~2016-06-29 | DS ---
PATIENT'S NAME: STACEY HERRERA [facility] AGE: 45 Y [address] ROOM: [id number] [place], [place] [address] LOCATION: GPCU ADMIT DATE: 06/29/2016 Discharge Summary DISCHARGE DATE: 07/02/2016 FAMILY PHYSICIAN: Onesimo Castellon MD ATTENDING PHYSICIAN: Syed Castillo V PRINCIPAL DISCHARGE DIAGNOSIS: Upper gastrointestinal hemorrhage. SECONDARY DIAGNOSES: 1. History of spontaneous bacterial peritonitis. 2. Clostridium difficile infection, present on admission, partially treated. 3. End-stage liver disease, secondary to Laennec's cirrhosis. 4. Severe protein-calorie malnutrition, prealbumin of 3. 5. Ascites. CONSULTATIONS: Gastroenterology, Dr. Lao, on 06/29/2016. PROCEDURES: None. BRIEF HISTORY: Mr. Herrera is a 45-year-old male who is well-known to the hospitalist and the Gastroenterology Services here at [facility] in [place]. He had been recently hospitalized for upper GI bleeding from 06/14/2016 to 06/27/2016 during which time he underwent upper endoscopy with esophageal variceal band ligation. His MELD score is now 18, up from 16, on that prior admission. On admission, the patient reports that he had 2 episodes of emesis producing a large amount of bright red blood. On presentation to the emergency room, his hemoglobin was 6. He was placed on octreotide and Protonix drips. He was seen by Dr. Lao and given initial transfusion of 1 unit of blood and stabilized. He had no further hematemesis, but he did develop some hematochezia, he was treated with FFP x3 units, and a second unit of packed red cells on 06/30/2016. Significant laboratory data revealed INR of 2.0 in addition to his hemoglobin level of 6, his platelet count was 109, total bili was 3.3, his albumin 2.8. Prealbumin is 3. The patient has continued to do well and he was treated with his Protonix and octreotide drip till this morning. He also received vitamin K. He has ascites, which is now stable. The patient had his first full soft meal yesterday evening. He is tolerating this well. He developed C. diff during his last hospitalization and missed a day of treatment because he could not fill the prescription on the or . He PATIENT'S NAME: STACEY HERRERA [facility] AGE: 45 Y [address] ROOM: [id number] [place], [place] [address] LOCATION: GPCU ADMIT DATE: 06/29/2016 Discharge Summary DISCHARGE DATE: 07/02/2016 FAMILY PHYSICIAN: Onesimo Castellon MD ATTENDING PHYSICIAN: Syed Castillo V is now having frequent stools about 5 today and continues on vancomycin 125 mg 4 times a day and I have reviewed with him the need to continue this for additional 7 days. He has gotten all but 1 dose of the 7 day course so far, so he will complete 14 days of total treatment with vancomycin orally. INSTRUCTIONS AT DISCHARGE: 1. High-protein diet, which I have reviewed with him and otherwise as tolerated. 2. Activity: As tolerated. 3. Follow up with Dr. 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 I have advised that he should call if there are any changes prior to that as soon as possible. He is to be discharged home now. MEDICATIONS AT THE TIME OF DISCHARGE: Include: 1. Vancomycin 125 mg p.o. 4 times a day and to finish 4 doses on 07/09/2016. 2. Calcium carbonate 500 mg p.o. b.i.d. with meals. 3. Carvedilol 3.125 mg p.o. b.i.d. with meals. 4. Ciprofloxacin 750 mg p.o. weekly for SBP prophylaxis. 5. Furosemide 40 mg p.o. daily. 6. Lactulose 30 mL p.o. every 6 hours. 7. Protonix 40 mg p.o. b.i.d. 8. Aldactone 100 mg p.o. once a day. 9. Zofran 4 mg p.o. every 6 hours p.r.n. nausea. CONDITION AT DISCHARGE: Fair. JACKLYN SANTAMARIA MD LM/carlo /[id number] d: 07/03/16 0506 t: 07/15/16 0855, DISCHARGE SUMMARY
--- NOTE | ~2016-06-29 | HP ---
PATIENT'S NAME: JOANN [facility] AGE: 45 Y [address] ROOM: [address] [place], [place] [address] LOCATION: CU ADMIT DATE: 06/29/2016 History & Physical DISCHARGE DATE: FAMILY PHYSICIAN: Onesimo Castellon MD ATTENDING PHYSICIAN: MONICA RENTERIA V DATE OF SERVICE: CHIEF COMPLAINT: Vomiting up blood. HISTORY OF PRESENT ILLNESS: The patient is a 45-year-old male with a known past medical history of advanced cirrhotic disease with prior history of varices. The patient presented to the ER today after vomiting up large amounts of blood. There was only a single episode. His hemoglobin was found to be 6 and his blood pressure was borderline. The patient was recently discharged from the hospital after being treated for acute blood loss anemia with varicocele bleeding as well as C. diff. He reports that he also has been having several episodes of diarrhea per day as he has not been able to fill his oral vancomycin prescription. It should be noted that unfortunately the patient's fiancee of a sudden cardiac yesterday. REVIEW OF SYSTEMS: Significant for his grief reaction. It is also significant for an increased fatigue and near syncope. All other systems have been reviewed and negative aside from pertinent positives mentioned above. PAST MEDICAL HISTORY: 1. Alcoholic/hepatitis C cirrhosis. 2. Esophageal varices, status post banding. 3. History of ascites, requiring frequent paracentesis. 4. History of alcoholism. 5. Portal hypertension. 6. Status post TIPS. 7. Depression. 8. Hypertension. SOCIAL HISTORY: Significant for former polysubstance abuse including alcohol, cocaine, and marijuana. He has been sober for the past several months. He denies history of smoking. PATIENT'S NAME: JOANN [facility] AGE: 45 Y [address] ROOM: [id number] [place], [place] [address] LOCATION: [facility] ADMIT DATE: 06/29/2016 History & Physical DISCHARGE DATE: FAMILY PHYSICIAN: Onesimo Castellon MD ATTENDING PHYSICIAN: MONICA RENTERIA V FAMILY HISTORY: Significant for mother with cardiovascular disease and father with hypertension. CURRENT MEDICATIONS: 1. Vancomycin. 2. Lasix. 3. Aldactone. PHYSICAL EXAMINATION: VITAL SIGNS: His heart rate is in the 80s, blood pressure is 96/50 at the time of my exam, saturating 100% on room air, afebrile, and respirations are 16. GENERAL: Appears a chronically ill, jaundiced, gentleman, in no acute distress. HEENT: Eye exam shows pupils are equal and reactive to light. LYMPHATIC: Shows no cervical lymphadenopathy. SKIN: Reveals jaundice. LUNGS: Grossly clear to auscultation. HEART: Heart rate is regular. No appreciable murmurs, gallops, or rubs. ABDOMEN: Reveals distention with shifting fluid waves. No tenderness or guarding or rebound. VASCULAR: Reveals 2+ pedal pulses with 2+ pitting lower extremity edema. NEUROLOGIC: Nonfocal. PSYCHIATRIC: Significant for depressed mood. LABORATORY DATA: Studies performed in the ER significant for complete metabolic profile with total bilirubin of 3.3 and albumin of 2.8. Unremarkable LFTs. A CBC, which shows a hemoglobin of 6.0 and platelets of 109. INR is 2.0. No imaging studies are available. ASSESSMENT AND PLAN: This is a 45-year-old male, who will be admitted to ICU with; 1. Acute blood loss anemia. We will transfuse the patient and trend his blood counts. 2. Upper gastrointestinal bleed. The patient has already been seen by Dr. Lao and started on octreotide drip. We will also give him some vitamin K if he has not gotten any, and try and support his coagulation status. 3. Clostridium difficile. We will continue the patient on vancomycin. 4. Ascites. At this point, his abdominal exam appears to be stable. 5. Additional management will depend on clinical course and recommendations from Gastroenterology. PATIENT'S NAME: STACEY DAVID [facility] AGE: 45 Y [address] ROOM: [address] [address] LOCATION: [facility] ADMIT DATE: 06/29/2016 History & Physical DISCHARGE DATE: FAMILY PHYSICIAN: Onesimo Castellon MD ATTENDING PHYSICIAN: MONICA RENTERIA V Time dedicated to this patient's encounter is 35 minutes. MD YUK/cameronl /[id number] D: [id number] T: [id number] HISTORY & PHYSICAL
--- NOTE | ~2016-06-29 | CON ---
PATIENT'S NAME: STACEY DAVID [facility] AGE: 45 Y [address] ROOM: [id number] [place], [place] [address] LOCATION: GICU ADMIT DATE: 06/29/2016 Consultation DISCHARGE DATE: FAMILY PHYSICIAN: Onesimo Castellon MD ATTENDING PHYSICIAN: MONICA RENTERIA V DATE OF CONSULTATION: 06/30/2016 REFERRING PHYSICIAN: Rufus Leal MD REASON FOR CONSULTATION: Upper GI bleed. HISTORY OF PRESENT ILLNESS: This is a very pleasant 45-year-old male who is well known to our Gastroenterology Services. The patient has a past medical history of end- stage liver disease secondary to alcohol as well as history of varices, upper GI bleed, recurring paracentesis, history of TIPS placement and a history of SBP. The patient recently was hospitalized with upper GI bleed from 06/14/2016 to 06/27/2016. At that time, the patient did undergo an upper endoscopy requiring esophageal variceal band ligation. His MELD score prior to that admission was 16. On admission, at that time, his MELD had increased to 18. The patient did also experience high fevers at that time with a diagnostic and therapeutic paracentesis completed showing negative for SBP as well as any fungal addition. Infectious Disease was consulted on him at his last hospitalization as well. He was sent home with prophylactic ciprofloxacin 750 mg weekly in regard to his history of SBP. The patient was dismissed on 06/27/2016 and did well at home until 06/29/2016. Unfortunately, his significant other was found on 06/28/16 in cardiac arrest and unfortunately did not make it. The patient states that at home after this scenario, he had 2 large emesis of bright red blood. He retreated to the emergency room and was seen with a hemoglobin of 6.0 on admission. The patient was admitted into the Intensive Care and placed on octreotide as well as Protonix. He was evaluated by Dr. Rufus Leal. He was also given 1 unit of blood and has been stable throughout the night. The patient was seen and examined. He does state that he is feeling better. He denies any hematemesis since on admission. The patient denies any fever or chills at home. He also denies any jenny abdominal pain. He does feel that his abdomen has increased in girth with fluid. He denies any shortness of breath associated with this. The patient denies any chest pain, chest pressure, fever, chills, night sweats. PAST MEDICAL HISTORY: 1. End-stage liver disease secondary to cirrhosis, alcohol. 2. The patient also has a history of esophageal varices status post banding. PATIENT'S NAME: JOANNSTACEY [facility] AGE: 45 Y [address] [id number] [address] LOCATION: [facility] ADMIT DATE: 06/29/2016 Consultation DISCHARGE DATE: FAMILY PHYSICIAN: Onesimo Castellon MD ATTENDING PHYSICIAN: MONICA RENTERIA V 3. History of hepatitis C cirrhosis, now treated. 4. History of recurring ascites with frequent paracentesis status post TIPS placement. 5. History of alcoholism. 6. Portal hypertension. 7. Depression. 8. Hypertension. PAST SURGICAL HISTORY: Multiple upper endoscopies requiring esophageal variceal, band ligation, TIPS placement, as well as revision. SOCIAL HISTORY: The patient has a history of alcoholism though has been sober for the past approximately a year. He denies any history of tobacco use. He is a former cocaine and marijuana user as well. FAMILY HISTORY: The patient's mother had cardiovascular disease. The patient's father had hypertension. ALLERGIES: HEPARIN CAUSES THROMBOCYTOPENIA. CURRENT MEDICATIONS: Please refer to the medication administration record. REVIEW OF SYSTEMS: A 10-point review of systems was completed. All were negative except for those identified in the history of present illness. PHYSICAL EXAMINATION: GENERAL: A very pleasant, 45-year-old male who appears to be in no acute distress. VITAL SIGNS: Temperature 98.1, pulse of 77, respirations of 18, blood pressure 95/46, oxygen saturations 95% on room air. SKIN: [place], warm, and dry. No jaundice. HEENT: Head is normocephalic and atraumatic. Pupils are equal, round, and reactive to light. Sclerae are clear. Nonicteric. Oral mucosa is pink and moist. No thyromegaly. NECK: Soft and supple. CARDIOVASCULAR: Regular normal S1, S2. RESPIRATORY: Respirations even and unlabored. LUNGS: Clear to auscultation. ABDOMEN: Round, distended, positive ascites fluid, nontender, positive for PATIENT'S NAME: JOANN, [facility] AGE: 45 Y [address] ROOM: [id number] [place], [place] [address] LOCATION: GICU ADMIT DATE: 06/29/2016 Consultation DISCHARGE DATE: FAMILY PHYSICIAN: Onesimo Castellon MD ATTENDING PHYSICIAN: MONICA RENTERIA V fluid wave as well. Bowel sounds positive. Slightly distended. MUSCULOSKELETAL: No muscle weakness or atrophy. EXTREMITIES: No clubbing or cyanosis. 2+ lower edema noted to the bilateral lower extremities. NEUROLOGICAL: Grossly nonfocal. LABS AND DIAGNOSTICS: White blood cell count 3.7, hemoglobin of 7.4, hematocrit of 22.4, and platelet of 65. Chemistry panel includes a glucose of 88, BUN of 13, creatinine 0.5, sodium 142, potassium of 4.5, chloride of 113, CO2 of 19. Albumin of 2.5, AST of 24, ALT of 17, alkaline phosphatase is 70, total bilirubin of 3.2. Pro-time of 20.7 and INR is 1.9. ASSESSMENT AND PLAN: Again, this is a very pleasant, 45-year-old male who is well known to our Gastroenterology Services with history of alcoholic and decompensated liver cirrhosis. 1. End-stage liver disease secondary to alcohol and history of hepatitis C. The patient currently is on the liver transplant list. This was discussed with the transplant team on 06/27/2016 that his MELD has increased from 16 to 18. On this admission, his MELD is calculated at 18. Child-Weller class of C. We will notify the [facility] liver transplant of his current hospitalization. 2. Upper gastrointestinal bleed. Currently, the patient is on octreotide and Protonix and these should be continued. No endoscopy is advised at this time as he has had a recent esophageal variceal banding. We will advise to keep the hemoglobin around 7, if acute drop in his hemoglobin upper endoscopy may be warranted at that time. 3. Ascites. The patient is positive for abdominal ascites. He does have a history of SBP. He currently has been placed on ceftriaxone. We will continue to monitor his abdominal distention as he may need paracentesis in the near future and possible addition of diuretics after increase stability also. 4. History of Clostridium difficile. The patient at the most recent hospitalization was Clostridium difficile positive and placed on p.o. vancomycin. It is recommended to continue this as previously ordered. Further recommendations will be given per Dr. Rufus Leal. Thank you for this consult and allowing us to participate in the care of this patient. ALAYNA GARCIA APRN FOR RUFUS LEAL MD PATIENT'S NAME: STACEY DAVID [facility] AGE: 45 Y [address] ROOM: [place] [address] LOCATION: [facility] ADMIT DATE: 06/29/2016 Consultation DISCHARGE DATE: FAMILY PHYSICIAN: Onesimo Castellon MD ATTENDING PHYSICIAN: MONICA RENTERIA/carlo /[id number] d: 06/30/16 1324 t: 07/04/16 1704, CONSULTATION REPORT
--- NOTE | ~2016-06-29 | CON ---
PATIENT'S NAME: STACEY DAVID [facility] AGE: 45 Y [address] ROOM: [place] [address] LOCATION: GPCU ADMIT DATE: 06/29/2016 Consultation DISCHARGE DATE: FAMILY PHYSICIAN: Onesimo Castellon MD ATTENDING PHYSICIAN: MONICA RENTERIA V DATE OF CONSULTATION: 06/29/2016 REFERRING PHYSICIAN: Kai Lao MD REFERRING PHYSICIAN: Dr. Jesse Renteria. CONSULTING PHYSICIAN: Kai Lao MD. REASON FOR CONSULTATION: Upper GI bleeding. HISTORY OF PRESENT ILLNESS: The patient is well known to our service because of his recent several admissions. He has a history of recent acute variceal bleeding. He had undergone upper GI endoscopy and also has end-stage liver disease secondary to hepatitis C. He has C. diff colitis, acute hypoxemic respiratory failure. He was intubated on his last admission. Presents today with a 1-day history of hematemesis. Also, he said that he started to have melena today. PAST MEDICAL HISTORY AND REVIEW OF SYSTEMS: Please refer to our recent consultation notes. He is on transplant list. He has had a TIPS in the past. This was recently revised. There is a history of significant alcohol abuse. PHYSICAL EXAMINATION: VITALS: His blood pressure is in the 80 to 90 range right now. GENERAL: He seems to be awake and alert. CHEST: Clear to auscultation bilaterally. ABDOMEN: He has some ascites. No acute abdominal pain. LABORATORIES: His CBC shows a WBC of 6.5, hemoglobin 6, hematocrit 18.5, platelet count 109. Complete metabolic screen shows sodium 140, potassium 4.3, chloride 109, bicarb is 22, BUN is 11, creatinine is 0.6. Total bilirubin is 3.3, ALT of 17, AST is 23, alkaline phosphatase is 88, albumin is 2.8. He had fluid collected on that did not show any growth. IMPRESSION: PATIENT'S NAME: STACEY DAVID [facility] AGE: 45 Y [address] ROOM: [address] [place] [id number] LOCATION: GPCU ADMIT DATE: 06/29/2016 Consultation DISCHARGE DATE: FAMILY PHYSICIAN: Onesimo Castellon MD ATTENDING PHYSICIAN: MONICA RENTERIA V The patient with a history of decompensated liver cirrhosis, now presenting with what appears to be hematemesis. He is slightly hemodynamically unstable at this time. RECOMMENDATION: We will be admitting the patient. He was started on octreotide 50 mcg/hour. He also will be given IV PPI. He will be given IV antibiotics. We will follow his hemoglobin and hematocrit. Should he drop his hemoglobin, we will try to keep his hemoglobin around 8 g/dL. The patient has chronic liver disease which is fairly significantly decompensated. We have spoken to the Transplant Center. We will try to expedite his transfer over for the transplant at some point. The patient understands his prognosis. Management plan has been explained. MD GETACHEW CASANOVA/carlo /[id number] d: 06/30/16 0026 t: 07/03/16 1653, CONSULTATION REPORT
--- NOTE | ~2016-06-29 | ER ---
PATIENT'S NAME: STACEY DAVID [facility] AGE: 45 Y [address] ROOM: [place] [address] LOCATION: GPCU ADMIT DATE: 06/29/2016 ER/Outpatient Report DISCHARGE DATE: FAMILY PHYSICIAN: Onesimo Castellon MD ATTENDING PHYSICIAN: MONICA RENTERIA V Time of Arrival: 1559 hours. Time of Evaluation: 1655 hours. IDENTIFICATION: This is a 45-year-old male, who I briefly saw in the fuller, ordered labs on, but did not officially see until 1655 hours due to our volume in the ER at that time. The patient this morning was at his significant other's Home as she yesterday when he had hematemesis. He had one episode of hematemesis, but he said it was quite a bit of blood. He was just discharged from the hospital on June 27, his significant other on June 28. He has known liver cirrhosis, esophageal varices, he has had previous banding, and he has significant ascites. The patient has not had dark or black tarry stools. He has some abdominal pain and distention. He has been seen by Dr. Lao and Dr. Castellon, who is his care physician. ALLERGIES: NONE. CURRENT MEDICATIONS: 1. Vancomycin. 2. Diuretic. 3. Lasix. 4. Aldactone. MEDICAL PROBLEMS: Alcoholic liver cirrhosis; hepatitis C with cirrhosis; esophageal varices, status post banding; history of ascites with frequent paracentesis; history of chronic alcohol use; history of portal hypertension, status post TIPS procedure; depression; and hypertension. PRIOR SURGERIES: TIPS procedure and upper endoscopies. FAMILY HISTORY: Positive for heart disease and hypertension. SOCIAL HISTORY: The patient lives here in [place]. He is currently unemployed. I believe he is on the transplant list. He just lost his long-term significant other on PATIENT'S NAME: STACEY DAVID [facility] AGE: 45 Y [address] ROOM: [place] [address] LOCATION: GPCU ADMIT DATE: 06/29/2016 ER/Outpatient Report DISCHARGE DATE: FAMILY PHYSICIAN: Onesimo Castellon MD ATTENDING PHYSICIAN: MONICA RENTERIA V Thursday. Tobacco use, none currently. Alcohol use, none currently. Drug use, none currently. The patient does have a history of polysubstance abuse in the past. REVIEW OF SYSTEMS: All systems reviewed and negative other than what is noted in the HPI. PHYSICAL EXAMINATION: VITAL SIGNS: Height 6 feet and 0 inches, weight 86.1 kg, blood pressure 96/50, pulse 95, respirations 14, temperature 98.8, and saturations 100% on room air. GENERAL: An IV was initiated. Normal saline at 75 mL/h. Labs to include a clot were drawn. HEENT: Head: Normocephalic and atraumatic. Ears: TMs translucent both ears. Nose: Mucosa pink, no lesions. Mouth: No lesions. Eyes: The patient has sunglasses on, I did ask him to remove them. He has scleral icterus. He has petechiae along his cheeks bilaterally. NECK: Supple. No lymphadenopathy. LUNGS: Clear to auscultation. HEART: Regular rate and rhythm. ABDOMEN: Distended. The patient does have positive ascites and fluid waves, mildly tender to deep palpation. No rebound or guarding. SKIN: Jaundiced, warm, and dry. NEURO: The patient is alert and oriented with no deficit. EXTREMITIES: 2+ pitting edema. No calf tenderness. PSYCH: The patient is sad, but does make eye contact and answer all questions appropriately. LABORATORY DATA: Labs returned showing a hemoglobin of 6.0, which is critical; hematocrit 18.5; platelets 109, which are stable; and white count 6.5 with 75% segs, 1% band, and 16% lymphocytes. INR 2.0. Sodium 140, potassium 4.3, chloride 109, CO2 of 22, BUN 11, creatinine 0.6, blood sugar 115, bilirubin 3.3 which is up from 2.5 on June 27, and albumin 2.8. Liver enzymes are normal at this time. The patient was typed and crossed for 2 units, was placed on octreotide drip at 50 mcg/hour, Protonix 40 mg IV b.i.d., and Rocephin 1 gram IV. IMPRESSION AND PLAN: 1. Acute blood loss anemia. The patient will be transfused 2 units of packed red blood cells. 2. Upper gastrointestinal bleed. Dr. Lao was consulted. The patient was started on an octreotide drip. The patient will be given some vitamin K with his elevated INR per Dr. Renteria and Protonix was initiated. 3. Ascites. Dr. Lao recommended one dose of antibiotics. He has been on Cipro prophylactically at home. We will give him Rocephin 1 gram IV PATIENT'S NAME: STACEY DAVID [facility] AGE: 45 Y [address] ROOM: [place] [address] [facility]: [facility] ADMIT DATE: 06/29/2016 ER/Outpatient Report DISCHARGE DATE: FAMILY PHYSICIAN: Onesimo Castellon MD ATTENDING PHYSICIAN: MONICA RENTERIA V here. 4. History of difficile colitis, on vancomycin. 5. Cirrhosis secondary to alcohol and hepatitis C. Plan for admission to ICU per Dr. Renteria with Dr. Lao consulting. The patient arrived to the ER at 1559. Time spent at the bedside and in consultation included 40 minutes. 40 minutes of critical care was provided with this patient. LIZ YOUNG MD CAR/modl /[id number] d: 06/30/162026 t: 07/01/167, OUTPATIENT REPORT
[~2016-06-29 15:59] MED LIST changes: +BUMEX1 MG PO; +VANCOCIN HCL125 MG PO; +ZOFRAN4 MG PO
[2016-06-29 17:16] LABS: HEMATOCRIT 18.5 % (37.0-53.0); MCV 88.9 fl (83.0-98.0); RBC 2.08 M/uL (4.00-6.00); RDW-CV 21.4 % (11.9-14.6); WBC 6.5 K/uL (4.0-11.0)
[2016-06-29 17:28] LABS: MCH 28.8 pg (27.0-34.0); MCHC 32.4 gm/dL (32.0-36.5); PLATELET COUNT 109 K/uL (150-450)
[2016-06-29 17:33] LABS: ALBUMIN 2.8 gm/dL (3.5-5.0); ALK PHOS 88 IU/L (33-138); ALT 17 IU/L (12-78); ANION GAP 13.3 (10.0-19.0); AST 23 IU/L (10-40); BLOOD UREA NITROGEN 11 mg/dL (6-24); CHLORIDE 109 mMol/L (96-110); CO2 22 mMol/L (22-32); CREATININE 0.6 mg/dL (0.6-1.3); ESTIMATED GFR (MDRD EQUATION) > 60; POTASSIUM 4.3 mMol/L (3.7-5.1); SODIUM 140 mMol/L (135-145)
[2016-06-29 17:35] LABS: PROTIME 22.7 SECONDS (9.6-11.1); PTT 63 SECONDS (25-32)
[2016-06-29 17:36] LABS: CALCIUM 7.2 mg/dL (8.5-10.5); TOTAL BILIRUBIN 3.3 mg/dL (0.0-1.5); TOTAL PROTEIN 4.4 g/dL (6.0-8.4)
[2016-06-29 18:07] LABS: ABSOLUTE NEUTROPHIL CT (ANC) 4.9 K/uL (1.4-9.0); BANDED NEUTROPHIL # 0.1 K/uL (0.0-0.1); BANDED NEUTROPHILS % 1 %; LYMPHOCYTE % 16 %; MONOCYTE # 0.4 K/uL (0.0-1.0); SEGMENTED NEUTROPHIL # 4.9 K/uL (1.4-9.0); SEGMENTED NEUTROPHIL % 75 %
--- NOTE | 2016-06-29 20:16 | NUR ---
PT ADMITTED TO ICU 6211 AT 1945. PIV X2 PRESENT, RUNNING NS AND OCTREOTIDE. A/O, SBA FOR TRANSFER FROM CART TO BED. ALEX CARR RN
[2016-06-29 20:34] LABS: HEMATOCRIT 18.8 % (37.0-53.0)
[2016-06-29 20:35] LABS: HEMOGLOBIN 6.3 g/dL (12.0-17.0)
[2016-06-29 22:46] LABS: HEMATOCRIT 21.6 % (37.0-53.0)
[2016-06-29 22:47] LABS: HEMOGLOBIN 7.1 g/dL (12.0-17.0)
[2016-06-29 22:57] LABS: INR - (THERAPEUTIC) 1.9 (0.9-1.1); PROTIME 21.1 SECONDS (9.6-11.1)
--- NOTE | 2016-06-30 04:36 | NUR ---
PT ADMITTED TO ICU AT 1945. SECOND UNIT OF PRBCS GIVEN, REPEAT H/H 7.1. ORDER FOR THIRD UNIT TO BE GIVEN. PRIOR TO SECOND UNIT, PT HAD ONE EPISODE OF EMESIS OF BLOOD. ORDER FOR ZOFRAN OBTAINED. DURING INFUSION OF THRID UNIT, PT HAD STOOLS WITH ALL BLOOD. VSS, DENIES DIZZINESS, VERTIGO, OR OTHER S/S. COMPLAINTS OF BACK PAIN PRESENT; ORDER FOR PRN PAIN MEDS OBTAINED AND GIVEN WITH POSITIVE EFFECT. ALEX CARR RN
[2016-06-30 05:12] LABS: BASOPHIL % 0.5 %; EOSINOPHIL # 0.2 K/uL (0.0-0.5); EOSINOPHIL % 5.4 %; HEMATOCRIT 22.4 % (37.0-53.0); IMMATURE GRANULOCYTE % 0.3 %; LYMPHOCYTE # 0.9 K/uL (0.8-4.0); LYMPHOCYTE % 24.3 %; MCV 89.2 fl (83.0-98.0); MONOCYTE # 0.6 K/uL (0.0-1.0); MONOCYTE % 16.2 %; MPV 12.8 fl (9.4-12.4); NEUTROPHIL % 53.3 %; NRBC % 0 /100WBC (0-0.00); RBC 2.51 M/uL (4.00-6.00); WBC 3.7 K/uL (4.0-11.0)
[2016-06-30 05:14] LABS: HEMOGLOBIN 7.4 g/dL (12.0-17.0); MCH 29.5 pg (27.0-34.0); PLATELET COUNT 65 K/uL (150-450); RDW-CV 17.2 % (11.9-14.6)
[2016-06-30 05:17] LABS: INR - (THERAPEUTIC) 1.9 (0.9-1.1); PROTIME 20.7 SECONDS (9.6-11.1)
[2016-06-30 05:34] LABS: ALBUMIN 2.5 gm/dL (3.5-5.0); ALK PHOS 70 IU/L (33-138); ALT 17 IU/L (12-78); ANION GAP 14.5 (10.0-19.0); AST 24 IU/L (10-40); BLOOD UREA NITROGEN 13 mg/dL (6-24); CHLORIDE 113 mMol/L (96-110); CO2 19 mMol/L (22-32); CREATININE 0.5 mg/dL (0.6-1.3); ESTIMATED GFR (MDRD EQUATION) > 60; POTASSIUM 4.5 mMol/L (3.7-5.1); SODIUM 142 mMol/L (135-145); TOTAL BILIRUBIN 3.2 mg/dL (0.0-1.5)
[2016-06-30 05:38] LABS: CALCIUM 6.7 mg/dL (8.5-10.5); TOTAL PROTEIN 3.8 g/dL (6.0-8.4)
[2016-06-30 16:51] LABS: HEMOGLOBIN 9.1 g/dL (12.0-17.0)
--- NOTE | 2016-06-30 16:52 | NUR ---
Significant Event:GI: Small BMs x 2. Maroon. Clear liquid diet. : Lasix this shift 1185 ml out in urine. 2445 ml in IV/PO. CARDIO: Afebrile. SBP 100s-120s. Afebrile. Trace edema in ankles/feet. RESP: Room air SaO2 100%.
[2016-06-30 16:53] LABS: HEMATOCRIT 27.4 % (37.0-53.0)
--- NOTE | 2016-06-30 23:03 | NUR ---
Significant Event: Pt A&Ox3. Was transfer from ICU today. Has had recent hospitalizations for GI bleeding issues. Has hx of EtOH abuse, esophageal varices, cirrhosis of liver, and cocaine and MJ abuse. Pt was here last week when SO was hospitalized. SO coded and past away. Pt was at home when noticed black stools and vomiting blood. 4 units of PRBC's have been given since admission. VSS, remains on RA. Does have hx of portal HTN, currently 1+ edema BLE. Pt is neg for C. diff, but is on vanco for tx. Currently has PIV RAC with D5 1/2NS @ 50 and octreotide @ 50 Y-sited; Lt hand protonix @ 10. Pt does have midline, ok'd to draw labs from. Pt is to have q6h H&H, next draw is at 0500. Clear liquid diet only. SBA to bathroom. Follow up:
[2016-06-30 23:32] LABS: HEMATOCRIT 23.8 % (37.0-53.0); HEMOGLOBIN 8.2 g/dL (12.0-17.0)
[2016-07-01 06:12] LABS: ALBUMIN 2.7 gm/dL (3.5-5.0); ANION GAP 13.6 (10.0-19.0); BLOOD UREA NITROGEN 8 mg/dL (6-24); CHLORIDE 111 mMol/L (96-110); CO2 21 mMol/L (22-32); CREATININE 0.7 mg/dL (0.6-1.3); ESTIMATED GFR (MDRD EQUATION) > 60; PHOSPHORUS 2.7 mg/dL (2.5-4.9); POTASSIUM 3.6 mMol/L (3.7-5.1); SODIUM 142 mMol/L (135-145)
[2016-07-01 06:13] LABS: CALCIUM 7.3 mg/dL (8.5-10.5)
[2016-07-01 06:15] LABS: BASOPHIL % 0.8 %; EOSINOPHIL # 0.2 K/uL (0.0-0.5); EOSINOPHIL % 8.9 %; HEMATOCRIT 23.9 % (37.0-53.0); HEMOGLOBIN 8.2 g/dL (12.0-17.0); IMMATURE GRANULOCYTE % 0.4 %; LYMPHOCYTE # 0.6 K/uL (0.8-4.0); LYMPHOCYTE % 22.1 %; MCH 30.3 pg (27.0-34.0); MCHC 34.3 gm/dL (32.0-36.5); MCV 88.2 fl (83.0-98.0); MONOCYTE # 0.4 K/uL (0.0-1.0); MONOCYTE % 16.3 %; MPV 12.5 fl (9.4-12.4); NEUTROPHIL # (ANC) 1.3 K/uL (1.4-9.0); NEUTROPHIL % 51.5 %; NRBC % 0 /100WBC (0-0.00); PLATELET COUNT 65 K/uL (150-450); RBC 2.71 M/uL (4.00-6.00); RDW-CV 17.3 % (11.9-14.6); WBC 2.6 K/uL (4.0-11.0)
--- NOTE | 2016-07-01 06:51 | NUR ---
Significant Event: HAS DENIED PAIN ALL NIGHT. DID NOT SLEEP VERY MUCH AT ALL. REMAINS ON ROOM AIR. UP AD ALYSON TO BR. DID HAVE 1 "DIARRHEA" STOOL PER HIS REPORT. VOIDING WELL PER URINAL. OCTREOTIDE, PROTONIX AND D5 1/2 RUNNING ORDERED. MIDLINE USED TO DRAW H&H EVERY 6 HRS. HGB STABLE ALL NIGHT. Follow up:
[2016-07-01 11:08] LABS: HEMATOCRIT 25.5 % (37.0-53.0); HEMOGLOBIN 8.6 g/dL (12.0-17.0)
--- NOTE | 2016-07-01 16:43 | NUR ---
Significant Event: pt increased to full liquids so far tolerates, can advance as mary. will have soft for supper. Aldactone given late for sbp lower. H&H q8h next at 1900 per sally iv., last was 8.6 hgb. Lasix twice today. Pt voids well but also drinks alot. 5 +loose yellow bms. No c/o pain. Pt up self. Follow up:
[2016-07-01 19:17] LABS: HEMOGLOBIN 8.8 g/dL (12.0-17.0)
[2016-07-02 03:19] LABS: HEMATOCRIT 26.1 % (37.0-53.0); HEMOGLOBIN 8.9 g/dL (12.0-17.0)
--- NOTE | 2016-07-02 04:00 | NUR ---
Significant Event: A/0X3. UP AB ALYSON IN ROOM. RESTED IN BED. TURNS SELF. AFEBRILE. VSS ON RA. DENIES PAIN. IV TO L) HAND SL. IV TO R) AC HAS OCTREOTIDE RUNNING AT 50 MCG/H AND MIDLINE TO R) UPPER ARM HAS PROTONIX RUNNING AT 8MG/H. HAD C/O OF NAUSEA AROUND 1952 ZOFRAN GIVEN. NO C/O SINCE. VOIDED FINE. NO BM THIS SHIFT. CONTINUE WITH STARLA KAPOOR. Follow up: CONTINUE WITH PLAN OF CARE.
[2016-07-02 11:32] LABS: HEMATOCRIT 24.3 % (37.0-53.0); HEMOGLOBIN 8.2 g/dL (12.0-17.0)
--- NOTE | 2016-07-02 14:56 | NUR ---
Introduced self and CM role to Justin. He tells me he lives here in [place] and plans to return there. Dismissal orders have been filled out, they are just waiting on Dr. Richmond to round to give her final blessing. He denies any issues with getting his medications filled out when he leave. He states he has a ride home as well. Will continue to follow and assist. Plan home.
--- NOTE | 2016-07-02 16:52 | NUR ---
1500 Introduced self and CM role to Justin.He tells me he lives in [place] & plans to return there. Dismissal orders have been filled out, they are just waiting on Dr. Richmond to round to give her final blessing. He denies any issues with getting his medications filled out when he leave. He states he has a ride home as well. Will continue to follow and assist. Plan home. 1600 Call from Sosa that his friend called and is worried about him going home alone. I phoned her back, she states, "well who is going to take care of him now, my sister was his only friend and now she is so no one is there to watch him or help him out. They took care of each other and now they she is ." I asked her what help she though he needed as I reviewed his notes and saw that he was walking around in his room fine and there were no concerns about him going home. "Well he can't take care of himself, you need to find him caregivers and find him a ride to go to [place] when they call him about his transplant. I work so I can't do that."I let her know that I don't find caregivers for patients but I would be more than happy to give her those resources so she could help him out with finding/hiring those. "I don't have time for that and he doesn't have money to pay for people like that. You don't even care about him. I don't have time to listen to you sit here and think of reasons not to help him, I am going to bury my sister (patients friend) right now so I don't have time for all of this. You people need to learn how to help people and find them rides, caregivers and do something." I offered once again to give him resouces for caregiving agencies, transportation services such as [employer] and also tried to ask what else I could possibly do to help out as I was willing to try to help as much as I could. She stated,"Just forget about it this is a waste, I'm on my way to a viewing so I don't want to waste anymore of my time talking to you,"and proceeded to hang up. I did later talk with Justin, he had no concerns about going home, and denies the need for any additional resources. He states when he gets the call about an organ, he will drive there himself. Will continue to follow and assist.
[2016-07-02] MEDS ORDERED: OSCAL500 MG PO (17:01)
[2016-07-02] MEDS ORDERED: COREG6.25 MG PO (17:02)
--- NOTE | 2016-07-02 17:39 | NUR ---
Significant Event: VSS ON RA. LAST HGB 7.8. PATIENT TO BE DISMISSED HOME THIS EVENING. PIV TO R) AC AND R) UPPER ARM MIDLINE PIV BEING DC'D CURRENTLY BY STUDENT RN WITH JANET APPLIED. TELEMETRY DC'D AND PATIENT TO LEAVE AFTER SUPPER. NO C/O PAIN. ZOFRAN PO GIVEN THIS AFTERNOON FOR QUESTIONABLE NAUSEA. VOIDS ADEQ AMOUNT WITH PATIENT REPORTING 4-5 LOOSE STOOLS TODAY. Follow up: DISMISS HOME. PATIENT TO DRIVE SELF WITH OWN VEHICLE IN PARKING LOT. PHYSICIANS AWARE.
--- NOTE | 2016-07-02 18:47 | NUR ---
PATIENT DISMISSED TO HOME BY PRIVATE VEHICLE DRIVING HIMSELF WITH DISCHARGE MEDICATION LIST, PRESCRIPTIONS AND PACKET WITH APPOINTMENTS WITH PATIENT. LEFT PCU AT 1845.
[2016-07-08] MEDS ORDERED: OSCAL500 MG PO (17:52)
[2016-07-08] MEDS ORDERED: ENULOSE UD L30 ML/EA PO (17:54)
[2016-07-08] MEDS ORDERED: LASIX20 MG PO (17:55)
[2016-07-08] MEDS ORDERED: PROTONIX40 MG PO (17:55)
[2016-07-08] MEDS ORDERED: ALDACTONE25 MG PO (17:55)
[2016-07-08] MEDS ORDERED: ZOFRAN4 MG PO (17:56)
[2016-07-08] MEDS ORDERED: CIPRO500 MG PO (17:56)
== END 2016-07-02 18:45 | disposition disaster alternative care site (69) | DRG 377 ==
LOC: GMED 15:59 → GICU 18:13 → GPCU 18:13 → GICU 18:58 → GPCU 06-30 17:36
PROVIDERS: Family Medicine; Internal Medicine; Physician Assistant; ADMIT Internal Medicine
PROC: 30233N1 Transfusion of Nonautologous Red Blood Cells into Peripheral Vein, Percutaneous Approach (ICD-10-PCS; principal; 2016-06-29)
DX: K92.2 Gastrointestinal hemorrhage, unspecified (principal); E43 Unspecified severe protein-calorie malnutrition; K74.60 Unspecified cirrhosis of liver; R18.8 Other ascites; K72.90 Hepatic failure, unspecified without coma; A04.7 Enterocolitis due to Clostridium difficile; B96.89 Other specified bacterial agents as the cause of diseases classified elsewhere; F32.9 Major depressive disorder, single episode, unspecified; K75.9 Inflammatory liver disease, unspecified; K92.0 Hematemesis; D64.9 Anemia, unspecified; Z68.24 Body mass index [BMI] 24.0-24.9, adult
CPT/HCPCS: C1751; C9113; J0696; J2270; J2354; J2405; J3010; J3370; J7030; J7040; J7050; P9016; P9017; P9040; Q0162

== ENCOUNTER → 2016-07-08 | Outpatient (CLI) | payer MEDICAID ==
[~2016-07-08] MED LIST changes: +ATIVAN 1 MG1 MG PO; +BACTRIM 400-801 EACH PO; +CALCITRATE + V1 EACH PO; +CELLCEPT500 MG PO; +CITRACAL950 MG PO; +COLACE100 MG PO; +COREG6.25 MG PO; +DELTASONE5 MG PO; +DULCOLAX5 MG PO; +HYDRODIURIL25 MG PO; +LASIX20 MG PO; +LIDOCAINE 5% PATCH TOP; +MIRALAX PO527 GM/BOT PO; +NORVASC10 MG PO; +NYSTATIN100000 UNI PO; +OSCAL500 MG PO; +OXYCODONE HCL5 MG PO; +PROGRAF 1MG CAPS1 MG PO; +PROGRAF5 MG PO; +ZOVIRAX400 MG PO
[2016-07-08 15:18] LABS: INR - (THERAPEUTIC) 1.6 (0.9-1.1); PROTIME 17.1 SECONDS (9.6-11.1)
== END | disposition disaster alternative care site (69) ==
LOC: LGSMG 14:56
PROVIDERS: Registered Nurse
DX: K74.60 Unspecified cirrhosis of liver (principal)

== ENCOUNTER → 2016-07-09 | Outpatient (CLI) | payer MEDICAID ==
[2016-07-09 10:31] LABS: BASOPHIL % 0.9 %; EOSINOPHIL # 0.1 K/uL (0.0-0.5); HEMATOCRIT 26.6 % (37.0-53.0); HEMOGLOBIN 8.7 g/dL (12.0-17.0); LYMPHOCYTE # 0.5 K/uL (0.8-4.0); LYMPHOCYTE % 15.1 %; MCH 29.7 pg (27.0-34.0); MCHC 32.7 gm/dL (32.0-36.5); MCV 90.8 fl (83.0-98.0); MONOCYTE # 0.6 K/uL (0.0-1.0); MONOCYTE % 17.5 %; MPV 13.5 fl (9.4-12.4); NEUTROPHIL # (ANC) 2.1 K/uL (1.4-9.0); NEUTROPHIL % 63.5 %; NRBC % 0 /100WBC (0-0.00); PLATELET COUNT 71 K/uL (150-450); RBC 2.93 M/uL (4.00-6.00); RDW-CV 17.9 % (11.9-14.6); WBC 3.3 K/uL (4.0-11.0)
[2016-07-09 10:43] LABS: INR - (THERAPEUTIC) 1.6 (0.9-1.1); PROTIME 17.6 SECONDS (9.6-11.1)
== END | disposition disaster alternative care site (69) ==
LOC: GOPD 07-08 15:00 → GRAD 09:38 → GOPD 10:00
PROVIDERS: Registered Nurse
PROC: 0W9G3ZZ Drainage of Peritoneal Cavity, Percutaneous Approach (ICD-10-PCS; principal; 2016-07-09)
DX: R18.8 Other ascites (principal); K74.60 Unspecified cirrhosis of liver
CPT/HCPCS: J2001; P9047

== ENCOUNTER 2016-07-20 00:34 | Emergency (ER) | payer MEDICAID ==
--- NOTE | ~2016-07-20 | ER ---
PATIENT'S NAME: STACEY DAVID [facility] AGE: 45 Y [address] ROOM: [place] [address] LOCATION: [facility] ADMIT DATE: 07/20/2016 ER/Outpatient Report DISCHARGE DATE: FAMILY PHYSICIAN: Onesimo Castellon MD ATTENDING PHYSICIAN: Surjit Dailey Time of Arrival: 0038 hours. Time of Evaluation: 0040 hours. CHIEF COMPLAINT: Abdominal pain. HISTORY OF PRESENT ILLNESS: The patient is a 45-year-old male, who presents to the emergency department today with the chief complaint of abdominal pain. He reports this started 24 hours prior to arrival. It is in the midepigastric region, it is currently 8/10 in severity, it is sharp. He does have a history of similar episodes in the past. He denies any fevers or chills. No urinary frequency, urgency, or painful urination. He did have nausea and one episode of vomiting. He denies any blood. No diarrhea or constipation. No blood in his stool. No dark tarry stools. PAST MEDICAL HISTORY: Alcoholic liver cirrhosis; hepatitis C with cirrhosis; esophageal varices, status post banding; history of ascites with frequent paracentesis; history of chronic alcohol abuse; history of portal hypertension, status post TIPS procedure; depression; hypertension. PAST SURGICAL HISTORY: TIPS, multiple upper endoscopies. SOCIAL HISTORY: The patient lives in [place]. He has recently lost his significant other. He denies any current tobacco use. He denies any current alcohol use. He denies illicit drug use. ALLERGIES: NO KNOWN DRUG ALLERGIES. MEDICATIONS: Please see list. PRIMARY CARE DOCTOR: Dr. Castellon. PATIENT'S NAME: JOANNSTACEY [facility] AGE: 45 Y [address] ROOM: [place] [address] LOCATION: [facility] ADMIT DATE: 07/20/2016 ER/Outpatient Report DISCHARGE DATE: FAMILY PHYSICIAN: Onesimo Castellon MD ATTENDING PHYSICIAN: Surjit Dailey REVIEW OF SYSTEMS: All systems are reviewed by myself and are negative with the exception of those discussed in the HPI and past medical history. PHYSICAL EXAMINATION: VITAL SIGNS: Weight 80.8 kg, blood pressure 149/71, pulse 75, respiratory rate 16, temperature 98, oxygen saturation 99% on room air. GENERAL: The patient is a 45-year-old male, who appears older than stated age, in no acute distress. HEENT: Normocephalic, atraumatic. Pupils are equal, round, and reactive to light. Does have jaundice noted. Oropharynx is clear. NECK: Supple. No nuchal rigidity. CARDIOVASCULAR: Regular rate and rhythm. No murmurs, rubs, or gallops. LUNGS: Clear to auscultation bilaterally. No wheezes, rales, or rhonchi. ABDOMEN: Soft, mild midepigastric tenderness to palpation. No rebound, rigidity, or guarding. Positive bowel sounds. MUSCULOSKELETAL: The patient moves all 4 extremities. SKIN: Warm and dry. LABORATORY DATA AND X-RAYS: Labs and x-rays are obtained. Lactate 1.9. CBC is unremarkable except for a hemoglobin of 9.5, which is improved from previous of 8.7; platelets are 53, last was 71. PTT is 42, PT is 16.7, INR is 1.58. Procalcitonin is 0.17. Urinalysis, 25 leukocyte esterase, 10 blood, otherwise, unremarkable. CMP is unremarkable except for a sodium of 131, CO2 of 20. Total bilirubin is 9.0. Alkaline phosphatase 201, AST 68, ALT is normal. Amylase and lipase normal. CK is normal, CK-MB 7.7, troponin is unremarkable. IMPRESSION: 1. Acute nonsurgical midepigastric abdominal pain. 2. End-stage liver disease, waiting liver transplant. 3. Chronic anemia. 4. Chronic thrombocytopenia. 5. Jaundice. 6. Initial visit. EMERGENCY DEPARTMENT COURSE: The patient was brought back to the examination room. He was seen evaluated by myself. IV was established. The patient was given 5 mg of morphine which result in complete resolution of his pain. He was also given 4 mg Zofran IV. Laboratory analysis are obtained as described above. The patient's abdominal exam is repeated, and he has absolutely no abdominal pain at this time. He has a minimal fluid wave at this time. He is not distended. I have discussed results with the patient. He has not had any blood in the stool or dark tarry stools. I have discussed that he is to return for any vomiting blood, dark PATIENT'S NAME: JOANN STACEY [facility] AGE: 45 Y [address] ROOM: [place], [place] [address] LOCATION: [facility] ADMIT DATE: 07/20/2016 ER/Outpatient Report DISCHARGE DATE: FAMILY PHYSICIAN: Onesimo Castellon MD ATTENDING PHYSICIAN: Surjit Dailey tarry stools, or blood in his stool. I have also discussed return for worsening abdominal pain or any other concerns that he is requesting pain medicine for home. We did give him 10 Percolone 5 mg. I have discussed that I would like him to follow up with Dr. Castellon in 1-2 days for re-evaluation. The patient is without further questions at this time. DISPOSITION: The patient is discharged home in good condition. DO CAROLYNE CLAY/cameronl /[id number] d: 07/20/16 0258 t: 07/20/16 1846, OUTPATIENT REPORT
[~2016-07-20 00:34] MED LIST changes: -ATIVAN 1 MG1 MG PO; -BACTRIM 400-801 EACH PO; -CALCITRATE + V1 EACH PO; -CELLCEPT500 MG PO; -CITRACAL950 MG PO; -COLACE100 MG PO; -DELTASONE5 MG PO; -DULCOLAX5 MG PO; -HYDRODIURIL25 MG PO; -LIDOCAINE 5% PATCH TOP; -MIRALAX PO527 GM/BOT PO; -NORVASC10 MG PO; -NYSTATIN100000 UNI PO; -OXYCODONE HCL5 MG PO; -PROGRAF 1MG CAPS1 MG PO; -PROGRAF5 MG PO; -ZOVIRAX400 MG PO
[2016-07-20 01:08] LABS: BASOPHIL % 0.3 %; EOSINOPHIL # 0.3 K/uL (0.0-0.5); EOSINOPHIL % 4.7 %; HEMATOCRIT 28.1 % (37.0-53.0); HEMOGLOBIN 9.5 g/dL (12.0-17.0); IMMATURE GRANULOCYTE % 0.3 %; LYMPHOCYTE # 0.9 K/uL (0.8-4.0); LYMPHOCYTE % 13.3 %; MCH 29.3 pg (27.0-34.0); MCHC 33.8 gm/dL (32.0-36.5); MCV 86.7 fl (83.0-98.0); MONOCYTE % 15.1 %; MPV 12.9 fl (9.4-12.4); NEUTROPHIL # (ANC) 4.3 K/uL (1.4-9.0); NEUTROPHIL % 66.3 %; NRBC % 0 /100WBC (0-0.00); RBC 3.24 M/uL (4.00-6.00); RDW-CV 18.1 % (11.9-14.6); WBC 6.4 K/uL (4.0-11.0)
[2016-07-20 01:13] LABS: PLATELET COUNT 53 K/uL (150-450)
[2016-07-20 01:26] LABS: ALBUMIN 2.6 gm/dL (3.5-5.0); ALK PHOS 201 IU/L (33-138); ALT 41 IU/L (12-78); ANION GAP 13.1 (10.0-19.0); AST 68 IU/L (10-40); BLOOD UREA NITROGEN 7 mg/dL (6-24); CHLORIDE 102 mMol/L (96-110); CO2 20 mMol/L (22-32); CPK 270 IU/L (35-332); CREATININE 0.6 mg/dL (0.6-1.3); ESTIMATED GFR (MDRD EQUATION) > 60; POTASSIUM 4.1 mMol/L (3.7-5.1); SODIUM 131 mMol/L (135-145); TOTAL PROTEIN 5.1 g/dL (6.0-8.4)
[2016-07-20 01:28] LABS: CALCIUM 7.2 mg/dL (8.5-10.5)
[2016-07-20 01:29] LABS: INR - (THERAPEUTIC) 1.58 (0.92-1.07); PROTIME 16.7 SECONDS (9.8-11.4)
[2016-07-20 01:30] LABS: PTT 42 SECONDS (25-32)
[2016-07-20 02:01] LABS: BLOOD URINE 10 /UL (NEGATIVE); GLUCOSE URINE NEGATIVE (NEGATIVE); KETONE URINE NEGATIVE (NEGATIVE); LEUKOCYTES URINE 25 /UL (NEGATIVE); NITRITE URINE NEGATIVE (NEGATIVE); PH URINE 6.5 (4.0-8.0); PROTEIN URINE NEGATIVE (NEGATIVE); SPEC GRAVITY URINE 1.015 (1.003-1.035); UROBILINOGEN URINE 4 mg/dL (NORMAL)
[2016-07-20 02:03] LABS: COLOR URINE AMBER (YELLOW); TURBIDITY URINE CLEAR (CLEAR)
[2016-07-20 02:11] LABS: BACTERIA URINE FEW (NEGATIVE); MUCUS URINE 1+ (NEGATIVE); RBC URINE 0-2 #/HPF (NEGATIVE); RENAL EPITH URINE NEGATIVE #/HPF (NEGATIVE)
== END 2016-07-20 02:19 | disposition disaster alternative care site (69) ==
LOC: GMED 00:34
PROVIDERS: Emergency Medicine
DX: R10.13 Epigastric pain (principal); K72.90 Hepatic failure, unspecified without coma; D64.9 Anemia, unspecified; D69.6 Thrombocytopenia, unspecified; R17 Unspecified jaundice; I10 Essential (primary) hypertension
CPT/HCPCS: J2270; J2405

== ENCOUNTER 2016-07-20 04:11 | Emergency (ER) | payer MEDICAID ==
--- NOTE | ~2016-07-20 | ER ---
PATIENT'S NAME: STACEY DAVID [facility] AGE: 45 Y [address] ROOM: [place] [address] LOCATION: [facility] ADMIT DATE: 07/20/2016 ER/Outpatient Report DISCHARGE DATE: 07/20/2016 FAMILY PHYSICIAN: Onesimo Castellon MD ATTENDING PHYSICIAN: Surjit Dailey Time of Arrival: 410. Time of Evaluation: 413. CHIEF COMPLAINT: Abdominal pain. HISTORY OF PRESENT ILLNESS: The patient is a 45-year-old male who presents to the emergency department today with a chief complaint of abdominal pain. The patient was seen and evaluated by myself 2 hours prior to arrival. The patient does have a history of end-stage liver disease and is awaiting liver transplant. He was noted to have some midepigastric abdominal pain. His abdominal pain had completely resolved with morphine and Zofran before so he was sent home. He returns with reoccurrence of the abdominal pain as well as 3 episodes of vomiting. He reports it is a sharp pain in the mid epigastric region. It is sharp. PAST MEDICAL HISTORY: Alcoholic liver cirrhosis, hepatitis C with cirrhosis, esophageal varices status post banding, history of ascites with frequent paracentesis, history of chronic alcohol abuse, history of portal hypertension status post TIPS procedure, depression, hypertension. PAST SURGICAL HISTORY: TIPS, multiple upper endoscopies. SOCIAL HISTORY: The patient lives in [place]. Recently lost his significant other. Denies any tobacco use. Denies any current alcohol use. Denies illicit drug use. ALLERGIES: NO KNOWN DRUG ALLERGIES. MEDICATIONS: Please see list. PRIMARY CARE DOCTOR: Dr. Castellon. REVIEW OF SYSTEMS: PATIENT'S NAME: STACEY DAVID [facility] AGE: 45 Y [address] ROOM: [place] [address] LOCATION: ED ADMIT DATE: 07/20/2016 ER/Outpatient Report DISCHARGE DATE: 07/20/2016 FAMILY PHYSICIAN: Onesimo Castellon MD ATTENDING PHYSICIAN: Surjit Dailey All systems are reviewed by myself and negative with the exception of those discussed in the HPI and past medical history. PHYSICAL EXAMINATION: VITAL SIGNS: Weight 80.8 kg, blood pressure 132/66, pulse 76, respiratory rate 14, temperature 97, oxygen saturation 100% on room air. GENERAL: The patient is a 45-year-old male, appears older than stated age in no acute distress. HEENT: Normocephalic, atraumatic. Pupils are equal, round, and reactive to light. No jaundice noted. Oropharynx is clear. NECK: Supple. There is no nuchal rigidity. CARDIOVASCULAR: Regular rate and rhythm. No murmurs, rubs, or gallops. LUNGS: Clear to auscultation bilaterally. No wheezes, rales, or rhonchi. ABDOMEN: Soft, mild midepigastric tenderness to palpation. No rebound, rigidity, or guarding. Positive bowel sounds. MUSCULOSKELETAL: The patient ambulates in the room. Moves all 4 extremities. SKIN: Warm and dry. LAB AND X-RAYS: Reviewed from previous visit just few hours ago. Lactate was 1.9. CBC was unremarkable except for hemoglobin 9.5, platelets 53. PTT is 42, PT is 16.7, INR is 1.58. Procalcitonin 0.17. Urinalysis showed 25 leukocyte esterase, 10 blood, otherwise unremarkable. CMP was unremarkable except for sodium 131, CO2 of 20. Total bilirubin was 9.0 increased from 5.4, alkaline phosphatase 201, AST is 60, ALT is normal. Amylase and lipase normal. CK is normal. CK- MB is 7.7. Troponin was unremarkable. A CT scan of the abdomen and pelvis was obtained. I did discuss the results with the night Radiology. The report is reviewed. It does show choledocholithiasis with common bile duct dilatation and mild intrahepatic biliary dilatation new from previous CT imaging, also has cholelithiasis. There is advanced cirrhosis with TIPS shunt in place. Moderate hiatal hernia and patchy lung consolidation. INITIAL VISIT EMERGENCY DEPARTMENT COURSE: The patient brought back to the examination room. Seen and evaluated by myself. An IV was established. The patient was given 5 mg of morphine IV as well as 4 mg of Zofran IV. CT scan of the abdomen and pelvis with IV contrast was obtained as described above. The patient was also given a liter of normal saline. This resulted in significant improvement of patient's symptoms. I did discuss the results with the patient. I have contacted Dr. Jeter with Gastroenterology. He does request transfer to a higher level of care as there are concerns about the complex nature of the patient's condition. We have contacted [facility] where the patient is awaiting liver transplant. I am currently awaiting a call back. I have discussed the case with Dr. Richardson. He will discuss the case with the [facility] providers for acceptance. PATIENT'S NAME: STACEY DAVID [facility] AGE: 45 Y [address] ROOM: [place] [address] LOCATION: ED ADMIT DATE: 07/20/2016 ER/Outpatient Report DISCHARGE DATE: 07/20/2016 FAMILY PHYSICIAN: Onesimo Castellon MD ATTENDING PHYSICIAN: Surjit Dailey DISPOSITION: The patient will be transferred to [facility] awaiting the accepting physician in stable condition. DO CAROLYNE CLAY/carlo /[id number] d: 07/20/16 2328 t: 07/21/16 0157, OUTPATIENT REPORT
--- NOTE | ~2016-07-20 | ER ---
PATIENT'S NAME: STACEY DAVID [facility] AGE: 45 Y [address] ROOM: [place] [address] LOCATION: [facility] ADMIT DATE: 07/20/2016 ER/Outpatient Report DISCHARGE DATE: 07/20/2016 FAMILY PHYSICIAN: Onesimo Castellon MD ATTENDING PHYSICIAN: Surjit Dailey CORRECTED PATIENT ACCOUNT INFORMATION 07/22/16 AO I did get a call back from [facility], Dr. Suero, who will accept the patient in transfer. The patient will be transferred by ground ambulance. IMPRESSION: Choledocholithiasis with common bile duct and minor intrahepatic ductal dilatation in the presence of end-stage renal failure secondary to alcoholic cirrhosis. MD MELVIN NORIEGA/modl /[id number] CORRECTED PATIENT ACCOUNT INFORMATION 07/22/16 AO d: 07/20/16 0647 t: 07/22/16 1829, OUTPATIENT REPORT
== END 2016-07-20 07:58 | disposition disaster alternative care site (69) ==
LOC: GMED 04:11
DX: K80.50 Calculus of bile duct without cholangitis or cholecystitis without obstruction (principal); K70.30 Alcoholic cirrhosis of liver without ascites; I12.0 Hypertensive chronic kidney disease with stage 5 chronic kidney disease or end stage renal disease; N18.6 End stage renal disease; Z96.89 Presence of other specified functional implants
CPT/HCPCS: J2270; J2405; J7030; Q9967

== ENCOUNTER 2016-08-30 02:12 | Inpatient (IN) | payer MEDICAID ==
[~2016-08-30] VITALS: Ht 182.9 cm; Wt 70.8 kg
--- NOTE | ~2016-08-30 | DS ---
PATIENT'S NAME: STACEY DAVID [facility] AGE: 46 Y [address] ROOM: [place] [address] LOCATION: [facility] [place] ADMIT DATE: 08/30/2016 Discharge Summary DISCHARGE DATE: 09/05/2016 FAMILY PHYSICIAN: Onesimo Castellon MD ATTENDING PHYSICIAN: Onesimo Castellon DISCHARGE DIAGNOSES: 1. End-stage liver disease due to hepatitis C with recent transplant. 2. Anxiety. 3. Depression. 4. Constipation. 5. Hypertension. 6. Gastroesophageal reflux disease. 7. Abdominal pain with nausea. 8. Altered mental status. 9. Esophageal candidiasis. PROCEDURES DURING ADMISSION: EGD. CONSULTS DURING ADMISSION: 1. Psychiatry. 2. Case Management and Social Work. 3. Gastroenterology. 4. Neurology. HOSPITAL COURSE: The patient is a 46-year-old male, who had a recent liver transplant at [facility], who presented with abdominal pain. Gastroenterology was consulted, and they did an EGD, which demonstrated valentin in the esophagus and he was started on nystatin. The patient demonstrated altered mental status throughout his hospital stay and had difficulty remembering why he was even in the hospital or taking his meds and Neurology was consulted. Neurology wanted to do an MRI, but the patient adamantly refused. Psychology was also consulted for his depression and anxiety because he recently lost his fiancee, and they felt that he was stable and did not need medication. Upon day of discharge, the patient's abdominal pain improved, his nausea improved, and we were able to set up social work as an outpatient to work with him and to make sure he was taking his medications. DISCHARGE CONDITION: Stable. DISPOSITION: Home. DISCHARGE MEDICATIONS: Please see list. DISCHARGE INSTRUCTIONS: The patient is to follow up with Dr. Castellon in PATIENT'S NAME: STACEY DAVID [facility] AGE: 46 Y [address] ROOM: [place] [address] LOCATION: [facility] [place] ADMIT DATE: 08/30/2016 Discharge Summary DISCHARGE DATE: 09/05/2016 FAMILY PHYSICIAN: Onesimo Castellon MD ATTENDING PHYSICIAN: Onesimo Castellon approximately 2 weeks. He is to follow up with Gastroenterology and with the transplant team as directed. I also advised him to follow up with Paul Butterfield as an outpatient. We will have Home Health follow him to make sure that he is taking his medications properly and that he is safe at home. MD GRETEL DONOHUE/modl /[id number] d: 09/05/16820 t: 09/08/162119, DISCHARGE SUMMARY
--- NOTE | ~2016-08-30 | NDGEN ---
PATIENT'S NAME: STACEY DAVID [facility] AGE: 46 Y [address] ROOM: [address] [address] LOCATION: [facility] [place] ADMIT DATE: 08/30/2016 Neurodiagnostics DISCHARGE DATE: FAMILY PHYSICIAN: Onesimo Castellon MD ATTENDING PHYSICIAN: Onesimo Castellon PROCEDURE: ELECTROENCEPHALOGRAM DATE OF PROCEDURE: 09/04/2016 TEST: TECH: CLINICAL DIAGNOSIS: DURATION OF EE minutes. REASON FOR EEG: Mental status changes/encephalopathy. CLINICAL HISTORY: The patient is a 46-year-old right-handed male who has depression and has been frustrated at his liver transplant taking time to heal and has been struggling with extremely poor memory. EEG FINDINGS: The patient was awake for majority of the EEG. During the awake portions, a low voltage of 8 to 9 Hz background was seen in the posterior head regions. The average voltage with less than 50 microvolts. Activation procedures such as hyperventilation could not be performed. Photic stimulation between 3 to 30 Hz did not show any abnormalities. No epileptiform discharges or EEG seizures were seen during this recording. CLASSIFICATION: Normal, awake, 10/20 scalp electrodes. IMPRESSION: This EEG is mostly within normal limits. No epileptiform discharges or EEG seizures were seen during this recording. MD JASMIN JESUS/modl /[id number] dtt: 09/07/16 1529 JUNE RAM MOHAN R. dtd: 09/04/16 1715
--- NOTE | ~2016-08-30 | ER ---
PATIENT'S NAME: STACEY DAVID [facility] AGE: 46 Y [address] ROOM: [place] [address] [place] [facility] [place]: 08/30/2016 ER/Outpatient Report DISCHARGE DATE: FAMILY PHYSICIAN: Onesimo Castellon MD ATTENDING PHYSICIAN: Onesimo Castellon Time of Arrival: 0212 hours. Time of Evaluation: 0213 hours. IDENTIFICATION: A 46-year-old male. CHIEF COMPLAINT: Chest discomfort. HISTORY OF PRESENT ILLNESS: The patient is a 46-year-old male who developed substernal chest pain approximately 20 minutes prior to arrival associated with shortness of breath. The pain is left-sided. No radiation. No cough. No fever or chills. The patient is status post liver transplant 07/23/2016. ALLERGIES: NO KNOWN DRUG ALLERGIES. CURRENT MEDICATIONS: 1. Acyclovir 400 mg b.i.d. 2. CellCept 500 mg 2 tablets b.i.d. 3. Prednisone 5 mg four tablets daily. 4. Prograf 5 mg b.i.d. 5. Coreg 6.25 mg b.i.d. 6. Lasix 20 mg 2 tablets b.i.d. 7. Bactrim 1 tablet b.i.d. on Thursday and Thursday. 8. Calcitrate with D 1 tablet b.i.d. 9. Lidocaine 5% patch daily. 10. Docusate 100 mg b.i.d. 11. Protonix 40 mg b.i.d. 12. MiraLax 1 capful daily. 13. Bisacodyl 5 mg 2 tablets b.i.d. 14. Cipro 500 mg daily. MEDICAL PROBLEMS: 1. Alcoholic liver cirrhosis. 2. Hepatitis C with cirrhosis status post transplant. 3. Esophageal varices status post banding. 4. History of ascites with frequent paracentesis. PATIENT'S NAME: STACEY DAVID [facility] AGE: 46 Y [address] ROOM: [place] [address] [place] [facility] [place]: 08/30/2016 ER/Outpatient Report DISCHARGE DATE: FAMILY PHYSICIAN: Onesimo Castellon MD ATTENDING PHYSICIAN: Onesimo Castellon 5. History of chronic alcohol use. No current use. 6. History of portal hypertension. 7. Depression. 8. Hypertension. PRIOR SURGERIES: 1. Liver transplant July of 2016. 2. TIPS procedure. 3. Esophageal variceal banding. FAMILY HISTORY: Positive for heart disease and hypertension. SOCIAL HISTORY: The patient lives here in [place]. He is unemployed. He just lost his long- term significant other in June. Tobacco use: None currently. Alcohol use: None currently. Drug use: None currently. The patient has a history of polysubstance abuse in the past. REVIEW OF SYSTEMS: All systems reviewed and negative other than what is noted in the HPI. PHYSICAL EXAMINATION: VITAL SIGNS: Height 6 feet 0 inches, weight 70.8, blood pressure 161/97, pulse 83, respirations 20, temperature 98.3, saturations 98%. GENERAL: A 46-year-old male in moderate distress, 7/10 chest pain despite 1 sublingual nitroglycerin given pre-hospital. HEENT: Unremarkable. LUNGS: Clear to auscultation. HEART: Regular rate and rhythm. ABDOMEN: Soft, nondistended, nontender. SKIN: Incision clean, dry, and intact with Steri-Strips. No erythema or drainage. No chest wall tenderness to palpation. No lower extremity pain or swelling. No calf tenderness. NEURO: No focal deficit. LABORATORY DATA: Sodium 139, potassium 4.0, chloride 108, CO2 20, BUN 26, creatinine 0.9, blood sugar 99. Liver enzymes normal. Magnesium 1.9. CPK 16, CK-MB less than 0.5. Troponin I less than 0.04. D-dimer elevated at 4.06, amylase 27, lipase 72. Hemoglobin 9.7, hematocrit 29.2, platelets 339, white count 12.7 with a normal differential. INR 1.02. Ammonia level 21. IMAGING: EKG sinus rhythm at 74 beats per minute. Nonspecific T-wave changes. No PATIENT'S NAME: STACEY DAVID [facility] AGE: 46 Y [address] ROOM: [id number] [place] [id number] [place] [facility] [place]: 08/30/2016 ER/Outpatient Report DISCHARGE DATE: FAMILY PHYSICIAN: Onesimo Castellon MD ATTENDING PHYSICIAN: Onesimo Castellon acute ST elevation or depression. CT PE protocol, negative for PE, small consolidation right lower lobe favoring atelectasis, 2-view chest x-ray, no acute process. Pending Radiology over-read. IMPRESSION AND PLAN: 1. Chest pain persistent and intermittent despite 100 mcg of fentanyl and a GI cocktail. No EKG or enzyme changes. The patient will be admitted for serial EKG and enzymes per Dr. Staton. 2. Recent liver transplant, 08/22/2016, doing well from the liver transplant standpoint at this point. The patient will be admitted per Dr. Staton for Dr. Castellon. 3. Hypertension. The patient on Coreg b.i.d. LIZ YOUNG MD CAR/carlo /[id number] d: 08/30/16 0643 t: 08/31/16 0344, OUTPATIENT REPORT
--- NOTE | ~2016-08-30 | CON ---
PATIENT'S NAME: STACEY [facility] AGE: 46 Y [address] ROOM: [address] [place], [place] [address] [place] [facility] [place] ADMIT DATE: 08/30/2016 Consultation DISCHARGE DATE: FAMILY PHYSICIAN: Onesimo Castellon MD ATTENDING PHYSICIAN: Onesimo Castellon REFERRING PHYSICIAN: TEOFILO JENSEN MD GASTROENTEROLOGY CONSULTATION HISTORY OF PRESENT ILLNESS: This is a 46-year-old male, who was admitted through the emergency room on 08/30/2016 with severe chest pain which started 20 minutes before appearance at the emergency room. Pain was left-sided with no radiation. There is no cough associated, but he did feel short of breath. He denies any fever or chills associated with it. He had a liver transplant on 07/23/2016. During the admission at [facility] for liver transplant, he also had chest pain, where endoscopy was done which showed there was some food in the esophagus, and also in the stomach, and further workup was not carried out at that time. It was very difficult to get history from the patient. I asked him do you have chest pain at admission and he said he is not sure. He denies any chest pain at present. However, he does say that he does occasionally get chest pains. In reference to his liver transplant, he remembers that he had a liver transplant, and he particularly mentioned that he does not want to look at his incision. He lost his significant other around the transplant time and does not want to talk about it. He seems to be difficult to express his feeling, and also cannot extract a reliable history from him. I discussed with the nurses taking care of him and his responses to the nurses have also been erratic in terms of his symptoms and about his feelings. PAST MEDICAL HISTORY: 1. Alcoholic liver disease. 2. Hepatitis C with cirrhosis and status post liver transplant. 3. Post esophageal varices and multiple sessions of band ligation. 4. History of ascites and frequent paracentesis prior to transplant. 5. History of chronic alcohol use, not in concurrent use. 6. History of portal hypertension. 7. Depression. 8. Hypertension. PAST SURGICAL HISTORY: Prior surgeries include: 1. Liver transplant on 07/23/2016. 2. TIPS procedure twice. 3. Esophageal varices with band ligation. FAMILY HISTORY: PATIENT'S NAME: STACEY [facility] AGE: 46 Y [address] ROOM: [address] [place], [place] [address] LOC[place] [facility] [place] ADMIT DATE: 08/30/2016 Consultation DISCHARGE DATE: FAMILY PHYSICIAN: Onesimo Castellon MD ATTENDING PHYSICIAN: Onesimo Castellon Positive for heart disease and hypertension. SOCIAL HISTORY: The patient is unemployed. 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 History of alcohol abuse, not currently using. History of drug use, not currently using. There is a past history of polysubstance abuse. REVIEW OF SYSTEMS: A 10-point review of systems is negative other than mentioned above. CURRENT MEDICATIONS: Include: 1. Acyclovir 400 mg p.o. b.i.d. 2. CellCept 500 mg 2 tablets b.i.d. 3. Prednisone 5 mg 4 tablets daily. 4. Prograf 5 mg b.i.d. 5. Coreg 6.25 mg p.o. b.i.d. 6. Lasix 20 mg 2 tablets b.i.d. 7. Bactrim 1 tablet b.i.d. on Mondays and Tuesdays. 8. Calcitrate with D 1 tablet b.i.d. 9. Lidocaine 5% patch daily. 10. Docusate 100 mg p.o. b.i.d. 11. Protonix 40 mg b.i.d. 12. MiraLAX 1 cupful daily. 13. Bisacodyl 5 mg 2 tablets b.i.d. 14. Cipro 500 mg daily. PHYSICAL EXAMINATION: GENERAL APPEARANCE: Reveals a well-developed male, who is not in acute discomfort at this time. Denies any chest pain at this time. VITAL SIGNS: Show his blood pressure fluctuating between 150 and 160 systolic or 80 to 97 diastolic, pulse is 83 per minute, respirations 20 per minute, temperature 98.3 degrees Fahrenheit, and oxygen saturation is 98%. HEAD, NECK, EYES, ENT: Unremarkable. CHEST: Clear to palpation, percussion, and auscultation. CARDIAC: Reveals both heart sounds are normal. No S3. No murmur. ABDOMEN: Soft. It is nontender. There is no hepatosplenomegaly. There is a scar from liver transplant which is healed and bowel sounds are active. SKIN: The incision from the liver transplant with Steri-Strips, and no erythema. No drainage. NEUROLOGIC: No focal deficits. Cranial nerves 2 through 12 are intact. LABORATORY DATA: PATIENT'S NAME: STACEY [facility] AGE: 46 Y [address] ROOM: [place] [address] [place] [facility] [place] ADMIT DATE: 08/30/2016 Consultation DISCHARGE DATE: FAMILY PHYSICIAN: Onesimo Castellon MD ATTENDING PHYSICIAN: Onesimo Castellon Shows his hemoglobin is 9.7, WBC count is 12,700, RBCs 3.5, hematocrit is 29.2, and platelet count is 339,000. His prothrombin time is 10.1 and INR is 1.2. His chemistry shows electrolytes are normal. PO2 was 179, pCO2 was 20, and pH was 7.5. BUN is 26, creatinine is 0.9. Albumin is 3.5, globulin 4, direct bilirubin is 0.7, and indirect bilirubin is 1.4. Alkaline phosphatase is 174, AST is 12, and LDH is 317. Acetaminophen level is 2.5 and salicylate level is less than 2.8. He had a CT scan on August 30 with a PE protocol. It showed no pulmonary embolism. Atelectasis was seen in the right lung base. Postoperative recent cholecystectomy, and mild hepatic subcapsular fluid collection. ASSESSMENT AND PLAN: 1. Mr. Herrera has a sketchy history of chest pain and also there are some areas of possible denial. He does not give a clear history about his relation and he does not know when his significant other and seems to be depressed. I have discussed with the nurse in charge and Gisele said that he seems to be depressed and not giving a clear history of his symptoms. I, therefore, have requested this psychiatric consultation. 2. We will go ahead and schedule him for upper GI endoscopy for evaluation of his chest pain and to rule out possibility of Candidal esophagitis. An additional cause is, he may need a workup for diffuse esophageal spasm including esophageal manometry and 24-hour pH monitoring or Jain capsule study. We appreciate sharing care of this patient. MD SHER STOVALL/carlo /[id number] d: 08/31/16 1710 t: 09/02/16 1514, CONSULTATION REPORT
--- NOTE | ~2016-08-30 | CON ---
PATIENT'S NAME: STACEY DAVID [facility] AGE: 46 Y [address] ROOM: [address] [address] LOCATION: [facility] [place] ADMIT DATE: 08/30/2016 Consultation DISCHARGE DATE: FAMILY PHYSICIAN: Onesimo Castellon MD ATTENDING PHYSICIAN: Onesimo Csatellon DATE OF CONSULTATION: 09/02/2016 REFERRING PHYSICIAN: TEOFILO JENSEN MD IDENTIFYING DATA: Stacey is a 46-year-old, single, never Euro [place]ian male who is currently unemployed because of medical reasons, lives here in [place]. Consultation requested by Dr. Castellon for evaluation of depression. The patient is seen one-to-one in his room today. Also information obtained from Deisi, the patient's nurse and from collateral records. More than 50% of the time spent in counseling and coordination of care. CHIEF COMPLAINT: "I just have been frustrated at how long it is taking for my liver transplant to heal." HISTORY OF PRESENT ILLNESS: The patient had extremely poor memory and was struggling with remembering a lot of things and giving a reliable history, but did state that he had a liver transplant secondary to him having hepatitis C, but things have been gradually improving, but he is frustrated his memory is not the sharp and wanted to see how long it is going to take for that to recover. He states that he does feel frustrated at that, but denies being hopeless or helpless. Denies any thoughts of hurting or killing himself or anybody else. No problem with sleep. Does have poor appetite, has lost weight. No anger or irritability. No fights or arguments. No thoughts of hurting other people. No racing thoughts or feeling hyper. No strange or bizarre experiences. PAST PSYCHIATRIC HISTORY: None. MEDICAL AND SURGICAL HISTORY: He has history of hepatitis C with cirrhosis and status post liver transplant. He also is status post esophageal varices with multiple band ligations. History of ascites and frequent paracentesis. No history of head injuries or seizures. DRUG AND ALCOHOL HISTORY: The patient states he used IV drugs just once when he was 20 years old and that is the only time, that was the time when he got infected with hepatitis PATIENT'S NAME: STACEY DAVID [facility] AGE: 46 Y [address] ROOM: [address] [place], [place] [address] LOCATION: [facility] [place] ADMIT DATE: 08/30/2016 Consultation DISCHARGE DATE: FAMILY PHYSICIAN: Onesimo Castellon MD ATTENDING PHYSICIAN: Onesimo Castellon C. Did use to drink a lot of beer, but states that he has not had any alcohol in a long time. He occasionally would smoke cannabis as well, but nothing on a regular basis, more for recreational purposes. FAMILY HISTORY: None. PERSONAL AND SOCIAL HISTORY: Originally from [place]. Denies any developmental problems. No history of any physical or sexual trauma. He did get his GED. Never went to college, never been , 1 child who lives in [place]. 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 MENTAL STATUS EXAM: The patient is alert, awake, and oriented to time, place, and person. He is cooperative with good hygiene and grooming. Appropriately dressed. Good eye contact. No psychomotor abnormalities. No rigidity or tremor. Affect is of normal range and intensity. It is related and appropriate. The mood is euthymic. Speech is fluent and spontaneous. Normal rate. No formal thought disorder. No suicidal or homicidal ideation. No psychosis. Fair insight. Fair judgment. Struggling with memory and concentration. ASSESSMENT: 1. 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 2. Status post liver transplant secondary to hepatitis C. PLAN: At this time, the patient is not an acute psychiatric concern, does feel frustrated secondary to his physical health issues and his memory issues, but he is not a candidate for any medication. He states that even if he is recommended the medication he would not take them. He is his own guardian. He feels that he has lot of reasons to live and do well and has good motivation for that. I eventually recommend that he will be followed up by Neurology to rule out any other causes which might be contributing to his extreme struggles with memory. Thanks for this consultation. MD HARPER FREGOSO/carlo PATIENT'S NAME: STACEY DAVID [facility] AGE: 46 Y [address] ROOM: [address] [address] LOCATION: [facility] [place] ADMIT DATE: 08/30/2016 Consultation DISCHARGE DATE: FAMILY PHYSICIAN: Onesimo Castellon MD ATTENDING PHYSICIAN: Onesimo Castellon /[id number] d: 09/02/162022 t: 09/03/16 1304, CONSULTATION REPORT
[~2016-08-30 02:12] MED LIST changes: -ATIVAN 1 MG1 MG PO; -BACTRIM 400-801 EACH PO; -CALCITRATE + V1 EACH PO; -CELLCEPT500 MG PO; -CITRACAL950 MG PO; -COLACE100 MG PO; -DELTASONE5 MG PO; -DULCOLAX5 MG PO; -HYDRODIURIL25 MG PO; -LIDOCAINE 5% PATCH TOP; -MIRALAX PO527 GM/BOT PO; -NORVASC10 MG PO; -NYSTATIN100000 UNI PO; -OXYCODONE HCL5 MG PO; -PROGRAF 1MG CAPS1 MG PO; -PROGRAF5 MG PO; -ZOVIRAX400 MG PO
[2016-08-30 02:50] LABS: BASOPHIL # 0.1 K/uL (0.0-0.2); BASOPHIL % 0.7 %; EOSINOPHIL # 0.3 K/uL (0.0-0.5); EOSINOPHIL % 2.4 %; HEMATOCRIT 29.2 % (37.0-53.0); HEMOGLOBIN 9.7 g/dL (12.0-17.0); IMMATURE GRANULOCYTE # 0.1 K/uL (0.0-0.3); IMMATURE GRANULOCYTE % 0.6 %; LYMPHOCYTE # 1.5 K/uL (0.8-4.0); LYMPHOCYTE % 11.7 %; MCH 27.7 pg (27.0-34.0); MCHC 33.2 gm/dL (32.0-36.5); MCV 83.4 fl (83.0-98.0); MONOCYTE # 1.1 K/uL (0.0-1.0); MONOCYTE % 8.9 %; MPV 10.3 fl (9.4-12.4); NEUTROPHIL # (ANC) 9.6 K/uL (1.4-9.0); NEUTROPHIL % 75.7 %; NRBC % 0 /100WBC (0-0.00); WBC 12.7 K/uL (4.0-11.0)
[2016-08-30 02:51] LABS: PLATELET COUNT 339 K/uL (150-450); RDW-CV 16.1 % (11.9-14.6)
[2016-08-30 03:04] LABS: INR - (THERAPEUTIC) 1.02 (0.92-1.07); PROTIME 10.7 SECONDS (9.8-11.4); PTT 28 SECONDS (25-32)
[2016-08-30 03:11] LABS: ALBUMIN 3.5 gm/dL (3.5-5.0); ALK PHOS 174 IU/L (33-138); ALT 36 IU/L (12-78); AST 12 IU/L (10-40); BLOOD UREA NITROGEN 26 mg/dL (6-24); CALCIUM 9.2 mg/dL (8.5-10.5); CHLORIDE 108 mMol/L (96-110); CO2 20 mMol/L (22-32); CPK 16 IU/L (35-332); CREATININE 0.9 mg/dL (0.6-1.3); ESTIMATED GFR (MDRD EQUATION) > 60; MAGNESIUM 1.9 mg/dL (1.8-2.6); SODIUM 139 mMol/L (135-145); TOTAL BILIRUBIN 0.4 mg/dL (0.0-1.5); TOTAL PROTEIN 7.5 g/dL (6.0-8.4)
[2016-08-30] MEDS ORDERED: ZOVIRAX400 MG PO (10:34)
[2016-08-30] MEDS ORDERED: CELLCEPT500 MG PO (10:38)
[2016-08-30] MEDS ORDERED: DELTASONE5 MG PO (10:39)
[2016-08-30] MEDS ORDERED: PROGRAF 1MG CAPS1 MG PO (10:40)
[2016-08-30] MEDS ORDERED: BACTRIM 400-801 EACH PO (10:41)
[2016-08-30] MEDS ORDERED: PROGRAF5 MG PO (10:41)
[2016-08-30] MEDS ORDERED: CALCITRATE + V1 EACH PO (10:43)
[2016-08-30] MEDS ORDERED: COLACE100 MG PO (10:46)
[2016-08-30] MEDS ORDERED: MIRALAX PO527 GM/BOT PO (10:47)
[2016-08-30] MEDS ORDERED: DULCOLAX5 MG PO (10:48)
[2016-08-30] MEDS ORDERED: LIDOCAINE 5% PATCH TOP (10:52)
[2016-08-30] MEDS ORDERED: OXYCODONE HCL5 MG PO (12:33)
[2016-09-05] MEDS ORDERED: NYSTATIN100000 UNI PO (11:35)
[2016-09-05] MEDS ORDERED: ZOFRAN4 MG PO (11:35)
== END 2016-09-05 14:30 | disposition disaster alternative care site (69) | DRG 369 ==
LOC: GMED 02:12 → GMSU 05:17
PROVIDERS: Family Medicine; ADMIT Family Medicine
PROC: 0DB58ZX Excision of Esophagus, Via Natural or Artificial Opening Endoscopic, Diagnostic (ICD-10-PCS; principal; 2016-09-01)
PROC: 0DB48ZX Excision of Esophagogastric Junction, Via Natural or Artificial Opening Endoscopic, Diagnostic (ICD-10-PCS; principal; 2016-09-01)
PROC: 0DB68ZX Excision of Stomach, Via Natural or Artificial Opening Endoscopic, Diagnostic (ICD-10-PCS; principal; 2016-09-01)
PROC: 4A00X4Z Measurement of Central Nervous Electrical Activity, External Approach (ICD-10-PCS; 2016-09-04)
DX: B37.81 Candidal esophagitis (principal); I85.00 Esophageal varices without bleeding; R18.8 Other ascites; Z94.4 Liver transplant status; F09 Unspecified mental disorder due to known physiological condition; F32.9 Major depressive disorder, single episode, unspecified; I10 Essential (primary) hypertension; K22.4 Dyskinesia of esophagus; R07.2 Precordial pain; Z86.19 Personal history of other infectious and parasitic diseases; F41.9 Anxiety disorder, unspecified; B19.20 Unspecified viral hepatitis C without hepatic coma
CPT/HCPCS: J2001; J2270; J2405; J3010; J7030; J7507; J7512; J7517; Q9967

== ENCOUNTER → 2016-08-30 | Outpatient (CLI) | payer MEDICAID ==
[~2016-08-30] MED LIST changes: +ATIVAN 1 MG1 MG PO; +BACTRIM 400-801 EACH PO; +CALCITRATE + V1 EACH PO; +CELLCEPT500 MG PO; +CITRACAL950 MG PO; +COLACE100 MG PO; +DELTASONE5 MG PO; +DULCOLAX5 MG PO; +HYDRODIURIL25 MG PO; +LIDOCAINE 5% PATCH TOP; +MIRALAX PO527 GM/BOT PO; +NORVASC10 MG PO; +NYSTATIN100000 UNI PO; +OXYCODONE HCL5 MG PO; +PROGRAF 1MG CAPS1 MG PO; +PROGRAF5 MG PO; +ZOVIRAX400 MG PO
== END | disposition disaster alternative care site (69) ==
LOC: GAMB 01:44
DX: R07.9 Chest pain, unspecified (principal)
CPT/HCPCS: A0425; A0427

== ENCOUNTER → 2016-09-10 | Outpatient (CLI) | payer MEDICAID ==
[~2016-09-10] MED LIST changes: +ATIVAN 1 MG1 MG PO; +BACTRIM 400-801 EACH PO; +CALCITRATE + V1 EACH PO; +CELLCEPT500 MG PO; +CITRACAL950 MG PO; +COLACE100 MG PO; +DELTASONE5 MG PO; +DULCOLAX5 MG PO; +HYDRODIURIL25 MG PO; +LIDOCAINE 5% PATCH TOP; +MIRALAX PO527 GM/BOT PO; +NORVASC10 MG PO; +NYSTATIN100000 UNI PO; +OXYCODONE HCL5 MG PO; +PROGRAF 1MG CAPS1 MG PO; +PROGRAF5 MG PO; +ZOVIRAX400 MG PO
[2016-09-10 09:00] LABS: HEMATOCRIT 29.1 % (37.0-53.0); HEMOGLOBIN 9.8 g/dL (12.0-17.0); MCH 28.2 pg (27.0-34.0); MCHC 33.7 gm/dL (32.0-36.5); MCV 83.9 fl (83.0-98.0); MPV 11.1 fl (9.4-12.4); RBC 3.47 M/uL (4.00-6.00); RDW-CV 17.2 % (11.9-14.6); WBC 7.5 K/uL (4.0-11.0)
[2016-09-10 09:23] LABS: ALBUMIN 3.5 gm/dL (3.5-5.0); ALK PHOS 105 IU/L (33-138); ALT 14 IU/L (12-78); ANION GAP 14.4 (10.0-19.0); AST 8 IU/L (10-40); BLOOD UREA NITROGEN 16 mg/dL (6-24); CALCIUM 8.4 mg/dL (8.5-10.5); CHLORIDE 110 mMol/L (96-110); CO2 20 mMol/L (22-32); CREATININE 1.2 mg/dL (0.6-1.3); ESTIMATED GFR (MDRD EQUATION) > 60; MAGNESIUM 1.5 mg/dL (1.8-2.6); POTASSIUM 3.4 mMol/L (3.7-5.1); SODIUM 141 mMol/L (135-145); TOTAL PROTEIN 6.8 g/dL (6.0-8.4)
[2016-09-10 09:35] LABS: PHOSPHORUS 1.8 mg/dL (2.5-4.9); TOTAL BILIRUBIN 0.3 mg/dL (0.0-1.5)
== END | disposition disaster alternative care site (69) ==
LOC: LHHCN 08:49
PROVIDERS: Internal Medicine Gastroenterology
DX: Z94.4 Liver transplant status (principal); Z79.899 Other long term (current) drug therapy

== ENCOUNTER 2016-09-17 15:30 | Observation (INO) | payer MEDICAID ==
[~2016-09-17] VITALS: Ht 182.9 cm; Wt 70.8 kg
--- NOTE | ~2016-09-17 | DS ---
PATIENT'S NAME: STACEY DAVID [facility] AGE: 46 Y [address] ROOM: [address] [place], [place] [address] LOCATION: [facility] ADMIT DATE: 09/17/2016 Discharge Summary DISCHARGE DATE: 09/24/2016 FAMILY PHYSICIAN: Onesimo Castellon MD ATTENDING PHYSICIAN: Ciro Martinez ADDENDUM: This is a supplementary. You can make references made to the one I dictated yesterday. He did not go home yesterday, so I would just say you could repeat that dictation put this addendum on the bottom. PHYSICAL EXAMINATION: VITAL SIGNS: Today, his temp is 97.8, pulse 63, respirations 18, BP 151/90, SaO2 is 98% on room air. He is up and walking easily. CHEST: Clear. HEART: Regular rate and rhythm without murmur. GENERAL: Belly is soft, nontender. No HSM or masses. EXTREMITIES: Distal extremities are non-swollen with good distal pulses. Note that he complained of congestion today, and I looked in the back of his throat, it has become somewhat pale, more consistent with allergies or a viral infection than anything significant or bacterial. Recommended he use a Neti pot in addition to the recommendations in the discharge summary yesterday, and we will have him follow up with his primary doctor as an outpatient. MD KYLE KEENE/carlo /[id number] d: 09/25/16 0351 t: 10/13/16 1612, DISCHARGE SUMMARY
--- NOTE | ~2016-09-17 | CON ---
PATIENT'S NAME: STACEY [facility] AGE: 46 Y [address] ROOM: [address] [place], [place] [address] LOCATION: GPCU ADMIT DATE: 09/17/2016 Consultation DISCHARGE DATE: 09/24/2016 FAMILY PHYSICIAN: Onesimo Castellon MD ATTENDING PHYSICIAN: Ciro Martinez DATE OF CONSULTATION: 09/19/2016 HISTORY OF PRESENT ILLNESS: Neurology was asked to assess Mr. Stacey Herrera a 46-year-old male patient who was initially seen by Neurology back on a prior admission this year. The patient was seen on 09/19/2016 for essentially assessing the patient's memory loss issues. Mr. Montesinos is a 46-year-old male patient, has extensive GI history as well as a GI history of alcohol, liver cirrhosis, headaches, and history of esophageal varices. He actually underwent a liver transplant at the beginning of the year in [place]. Ever since the surgery, the patient states that he is not as bright as he was prior to the surgery, but he admits that he is getting slowly better with his short-term memory. His long-term memory is not as well as in the past, but it seems to be well-preserved according to him. As the patient lives by himself, it is difficult for persons to really come in and check up on him, but he does have a sister who has been questioning his complaints of memory disturbances especially short- term memory problems. The patient denies any vomiting, nauseousness, he denies significant headache though he does have a history of migraine headaches, he says it is not a problem presently. He has a long history of multiple GI bleeds with recurring paracentesis, history of TIPS placement, and a history of SBP. He had prior multiple GI bleeds including 2 admissions back in June for extensive esophageal variceal bleeds requiring banding. PRIOR MEDICAL HISTORY: History of hepatitis C with recurring ascites associated with his cirrhosis with frequent paracentesis, his liver failure was accelerated with hepatitis C and alcohol abuse, and with history of anxiety, depression, as well as hypertension. SOCIAL HISTORY: He denies any present tobacco use. He did abuse illicit drugs including cocaine and marijuana in the past and a significant history of alcohol use for which he says he has been sober for nearly 1-1/2 years. FAMILY HISTORY: His mother has cardiovascular disease. His father has hypertension. ALLERGIES: HE HAS ALLERGIES TO HEPARIN, WHICH CAN CAUSE HIM TO HAVE LOW PLATELETS. PATIENT'S NAME: STACEY [facility] AGE: 46 Y [address] 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 THE PATIENT VOICES A FEELING OF SADNESS AND ANXIETY WITH DEALING OF THE LOSS OF HIS FIANCEE. HE DOES NOT DISCUSS ABOUT THIS. HE DENIES ANY SUICIDAL IDEATIONS. PHYSICAL EXAMINATION: GENERAL: This is a healthy appearing male patient who is fairly friendly and he was in no acute distress. VITAL SIGNS: His vital signs revealed a pulse of 92 and regular, respiration rate 12, blood pressure 180/72, and temperature is 99.2. NEUROLOGIC: The patient appears to be well-nourished, but he is slightly underweight. He has some minor temporal wasting. Cranial nerves 2 through 12 was intact. His motor exam revealed 5/5 power in the upper and lower extremities proximally and distally. There is normal bulk and tone of the muscles. Reflexes were intact and normal at +2 in the biceps, triceps, brachioradialis, patellar reflexes, ankle jerk reflexes +2, and plantar reflexes were downgoing. The patient's gait was normal, narrow-based, no evidence of ataxia. Negative Romberg. Testing of his mental status on the [facility] mini-mental status, he scored quite well with construction as well as conturing, pattern recognition, he had a good recall of past prior events he knew his teachers back in early grade school, able to give me the date, other issues with orientation, knew exactly where he was and how to get to this hospital, an excellent sense of direction. Discussions of the past year including his liver surgery were discussed in detail, he was able to even tell me the events and the dates that was associated with his liver surgery, took serial 7, scored well; however, on recall 5/5 objects on immediate recall, the patient got 0 correct even on immediate recall as well as delayed recall and with coaxing he could not recall any numbers or objects given to him. Rest of the mini-mental test was performed well. IMPRESSION: The patient actually perform quite well and is fairly conversational. In the testing, it is quite obvious the patient has a poor concentration and his mind is not into trying to remember any short-term details. I think this is somewhat voluntary to a largest extent as he scored very well with past memory as well as puzzles as well as orientation and he could be quite conversational turning the events of the past year. The nature of that his short-term memory would be so poor is really out of context to the rest of his testing. This is often seen in persons who are very anxious at that time and certainly he fits the bill under immense emotional distress that is to recent of his fiancee and then having a major surgery this year. He admits that it is very hard for him to concentrate in general; so, it is very difficult to assess a PATIENT'S NAME: STACEY [facility] AGE: 46 Y [address] ROOM: [id number] [place] [id number] [facility] ADMIT DATE: 09/17/2016 Consultation DISCHARGE DATE: 09/24/2016 FAMILY PHYSICIAN: Onesimo Castellon MD ATTENDING PHYSICIAN: Ciro Martinez short-term memory while the patient is in a reactive grief and anxiety state. Discussed that in certain surgeries which are prolonged, persons are slow to recover their abilities to process in short-term memory, but this is not necessarily going to be a long-term process for him. This is still quite early from the time of his surgery and I would expect improvement in his short-term cognition with time. However, because of his anxiety state and his depression, this will likely be the overriding issue for him for the next year. I did try to give him some positive encouragement depending upon the positive findings that I saw on the testing. I went over the results of a CAT scan of the brain which thankfully is of within normal limits. I do not believe the patient requires any further workup with an MRI as there is nothing obvious and repeated CAT scans would induce only more fear and anxiety in this patient. I could always see the patient on Neurologic follow up in our clinic and it would be the best way to aircraft electronics technical officer his overall status over the course of the next few months. MD KAMINI PASTRANA/carlo /[id number] d: 10/17/16 0247 t: 10/21/16 1503, CONSULTATION REPORT
--- NOTE | ~2016-09-17 | DS ---
PATIENT'S NAME: STACEY DAVID [facility] AGE: 46 Y [address] ROOM: [address] [place], [place] [address] LOCATION: GPCU ADMIT DATE: 09/17/2016 Discharge Summary DISCHARGE DATE: FAMILY PHYSICIAN: Onesimo Castellon MD ATTENDING PHYSICIAN: Ciro Martinez DISCHARGE DIAGNOSES: 1. Memory loss. 2. Cirrhosis of the liver, status post liver transplant in July 2016. 3. Chronic pain. 4. Hypertension, controlled. 5. Migraine, resolved. 6. Abdominal pain, postoperative. PROCEDURES: None. INDICATIONS: The patient was admitted from Dr. Lao's office because he was just unable to remember anything. He seemed completely out of it at that point and was sent here for evaluation of his change in mental status. He was deemed high risk because of his recent liver transplant. Subsequently, his laboratory values were fairly normal. Blood sugars were well controlled. Chemistry showed a slight respiratory alkalosis when he got here, but his electrolytes normalized. Potassium went from 3.5 to 3.9. BUN and creatinine were 32 and 1.1 respectively when last tested. Albumin was normal. Direct bilirubin was 0.7 with an indirect bilirubin of 1.4. AST was low, ALT was normal at 30. GFR greater than 60. LDH was elevated at 317. Amylase normal. Lipase 72, which is actually low. Total iron-binding capacity was low at 223. Pre-albumin low at 3. On testing for salicylates, showed less than 2.8, and acetaminophen was low at 2.5. Haptoglobin was less than 8. TSH and free T4 were normal. Hematology showed white count of 6.9 with hemoglobin of 10.9, and platelets of 195. Hepatitis C RNA viral load is pending. MRI of the brain is unremarkable. HOSPITAL COURSE: One of steady improvement, although he maintained intermediate memory loss. He could not remember what his girlfriend did of. I believe, she in July, so fairly recent. He could not remember the name of medications and did not remember the day that he had his liver transplant. He had been followed by Home Health, nurse is checking on his ability to medicate himself and Speech Therapy had been working on his memory and will continue that. MEDICATIONS: Will be per nursing med recon. PATIENT'S NAME: JOANN, STACEY [facility] AGE: 46 Y [address] ROOM: [address] [place], [place] [address] [facility] ADMIT DATE: 09/17/2016 Discharge Summary DISCHARGE DATE: FAMILY PHYSICIAN: Onesimo Castellon MD ATTENDING PHYSICIAN: Ciro Martinez Diet will be ad sabina and activity will be as tolerated. Reviewed and can manage at home. He does not go outside the home because he tends to get lost and will continue to evaluate his memory and his navigational abilities with Home Health. PHYSICAL EXAMINATION: GENERAL: Exam today was benign. CHEST: Clear. HEART: Regular rate and rhythm without murmur. FOLLOWUP: Will be with his primary care doctor in 2 weeks. Note also that this discharge period took greater than half hour. MD KYLE KEENE/carlo /[id number] d: 09/24/16626 t: 10/13/16 1609, DISCHARGE SUMMARY
--- NOTE | ~2016-09-17 | HP ---
PATIENT'S NAME: STACEY DAVID [facility] AGE: 46 Y [address] ROOM: [place] [address] LOCATION: GICU ADMIT DATE: 09/17/2016 History & Physical DISCHARGE DATE: FAMILY PHYSICIAN: Onesimo Castellon MD ATTENDING PHYSICIAN: Ciro WHITNEY DATE OF SERVICE: CHIEF COMPLAINT: Forgetfulness. HISTORY OF PRESENT ILLNESS: The patient is a 46-year-old gentleman with history of alcoholic liver cirrhosis, esophageal varices, and migraine, who presents here from Dr. Lao' office with forgetfulness. The patient has a history of alcoholic liver cirrhosis, and has been admitted several times to hospital in the past and has had a liver transplant in the beginning of this year at [place] and since his transplant, the patient was noted to have episode of lows and disability to create new memories after his event of surgery. The patient currently lives by himself and does not remember if he is compliant with medication. He reports that his medications are in a box and does not know if he takes it or does not take it. He reports that he think he has someone come in and check up on him. The patient lives by himself. The patient does not have a family support. Currently, reports of his typical headache. Denies any fever, chills, abdominal pain, nausea, vomiting, diarrhea, fall, trauma, and seizure like activity. The patient reports that his appetite is okay, but he think his sleeping habit is poor. When asked to elaborate more, the patient could not give a detailed information. MEDICAL HISTORY: Liver cirrhosis, esophageal varices, history of migraine. SURGICAL HISTORY: Liver transplant and multiple EGDs. FAMILY HISTORY: He thinks that his mother and father are diabetic. SOCIAL HISTORY: He is former smoker. He does not drink currently and has one daughter and lives by himself. MEDICATIONS: 1. Acyclovir 400 mg twice a day. 2. Coreg 6.25 mg twice a day. PATIENT'S NAME: STACEY DAVID [facility] AGE: 46 Y [address] ROOM: [place] [address] LOCATION: [facility] ADMIT DATE: 09/17/2016 History & Physical DISCHARGE DATE: FAMILY PHYSICIAN: Onesimo Castellon MD ATTENDING PHYSICIAN: Ciro WHITNEY 3. Ciprofloxacin 500 mg every day. 4. Lasix 40 mg every day. 5. CellCept 1000 mg twice a day. 6. Zofran. 7. Oxycodone 5 mg every 12 hours for pain. 8. He is on Protonix 40 mg. 9. Prednisone 20 mg every day. 10. Bactrim 400-80 mg twice a week. 11. He takes Prograf 7 mg b.i.d. REVIEW OF SYSTEMS: All systems have been reviewed and are negative except for what I mentioned. PHYSICAL EXAMINATION: VIAL SIGNS: Temperature 98.4, respiratory rate 18, pulse of 81, and blood pressure 176/98. GENERAL APPEARANCE: The patient is alert and awake, in no acute distress. HEAD: Normocephalic. EYES: Extraocular muscle intact. No nystagmus. MOUTH: Moist oral mucosa. CHEST: Clear to auscultation bilaterally. HEART: Normal rate and rhythm. No murmurs, rubs, or gallops. CHEST: Clear to auscultation bilaterally. ABDOMEN: Soft, nontender, and nondistended. Old surgical scar present. SKIN: Warm to touch. SERVICE GREETER: Motor and sensory grossly intact. Alert and oriented times x1, oriented to self. The patient have poor recall ability. Concentration is intact. Unable to remember new events, but remembers old events such as high school mass gout. LABORATORY DATA: White blood cell count of 8.3, hemoglobin of 11.6, platelet of 197. Glucose of 145, BUN of 25, and creatinine of 1.2. Bilirubin of 0.5, AST and ALT within normal limits. ASSESSMENT AND PLAN: 1. Anterograde amnesia. Apparently, the patient was admitted by his primary care physician and discharged on the beginning of September for similar reasons. The patient was discharged, MRI was requested by Neurology, but an MRI was not acquired as the patient refused to do so. The patient currently it is okay to have MRI. Etiology unknown. I highly doubt this is hepatic encephalopathy as the patient has new liver and his liver function appears normal and he has negative asterixis. Liver function tests appear within normal limits. It is interesting his presentation is anterograde amnesia and has a very good intact past histories. PATIENT'S NAME: STACEY DAVID [facility] AGE: 46 Y [address] ROOM: [address] [place], [place] [address] LOCATION: [facility] ADMIT DATE: 09/17/2016 History & Physical DISCHARGE DATE: FAMILY PHYSICIAN: Onesimo Castellon MD ATTENDING PHYSICIAN: Ciro WHITNEY Wernicke's encephalopathy and Korsakoff's syndrome were also entertained; however, the patient does not have any nystagmus or any confirmation. However, saying that since the patient has a history of alcohol use, we will start the patient on thiamine supplement. We will acquire MRI of brain and acquire Neurology consult for further guidance. We will also acquire social work consultation as I highly doubt the patient can take care for himself as outpatient especially when he is on several medication that needs to be taken regularly for his transplant rejection. 2. Liver cirrhosis, status post transplant. To continue his medication for transplant rejection including CellCept, Prograf, acyclovir, Cipro, and Bactrim. We will acquire Prograf level. The patient's LFT appear within normal limits, and the patient does not have any insight and looks compensated. 3. History of esophageal varices. Continue Protonix and beta jaime. 4. The patient currently is having typical migraine. We will start Tylenol, also get MRI of the brain. 5. Hypertension, uncontrolled. I highly doubt if the patient took his medication. We will continue home medication of beta jaime. We will add amlodipine. Greater than 60 minutes was spent on the patient care, 50% of the time was spent on direct patient care and consultation was Dr. Lao and Neurology. We will admit the patient for antegrade amnesia. The patient's code status on admission is DNR. The patient clearly reports that he does not want to be resuscitated. DEVONTE RODRIGUEZ MD AD/modl /[id number] D: 041 T: HISTORY & PHYSICAL
[~2016-09-17 15:30] MED LIST changes: -ATIVAN 1 MG1 MG PO; -CITRACAL950 MG PO; -HYDRODIURIL25 MG PO; -NORVASC10 MG PO
[2016-09-17 17:01] LABS: HEMATOCRIT 33.1 % (37.0-53.0); HEMOGLOBIN 11.6 g/dL (12.0-17.0); MCH 29.8 pg (27.0-34.0); MCV 85.1 fl (83.0-98.0); MPV 10.2 fl (9.4-12.4); PLATELET COUNT 197 K/uL (150-450); RBC 3.89 M/uL (4.00-6.00); RDW-CV 18.1 % (11.9-14.6); WBC 8.3 K/uL (4.0-11.0)
[2016-09-17 17:20] LABS: ALK PHOS 100 IU/L (33-138); ALT 19 IU/L (12-78); ANION GAP 12.7 (10.0-19.0); AST 9 IU/L (10-40); BLOOD UREA NITROGEN 25 mg/dL (6-24); CALCIUM 9.2 mg/dL (8.5-10.5); CHLORIDE 107 mMol/L (96-110); CO2 23 mMol/L (22-32); CREATININE 1.2 mg/dL (0.6-1.3); ESTIMATED GFR (MDRD EQUATION) > 60; POTASSIUM 3.7 mMol/L (3.7-5.1); SODIUM 139 mMol/L (135-145); TOTAL PROTEIN 7.4 g/dL (6.0-8.4)
[2016-09-17 17:21] LABS: TOTAL BILIRUBIN 0.5 mg/dL (0.0-1.5)
--- NOTE | 2016-09-17 17:23 | NUR ---
Significant Event:PT IS ALERT TO SELF. KNOWS HE IS IN THE HOSPITAL BUT DOES NOT KNOW WHY. WILL STATE HE HAS NO MEMORY. BLURRED VISION. FRONTAL PAULINO. MD COMING TO SEE PATIENT. CLEAR LUNG SOUNDS ACTIVE BS. BM YEST. COULD BE A SBA. IV R) INNER FA SL'D. RECENT LIVER TRANSPLANT. Follow up:ALARMS
[2016-09-17 17:48] LABS: ABSOLUTE NEUTROPHIL CT (ANC) 7.1 K/uL (1.4-9.0); LYMPHOCYTE # 0.9 K/uL (0.8-4.0); LYMPHOCYTE % 11 %; MONOCYTE # 0.3 K/uL (0.0-1.0); SEGMENTED NEUTROPHIL # 7.1 K/uL (1.4-9.0); SEGMENTED NEUTROPHIL % 85 %
--- NOTE | 2016-09-17 17:48 | NUR ---
Patient is 46 yo male admitted this evening with encephalopathy from history of cirrhosis of the liver, patient apparently had a liver transplant in 07/2016. Patient is unreliable historian. He says he can't remember when asked questions. With his history, he denies most of the conditions or s/s that are listed for him from previous admissions. Patient has family that check on him occasionally, but it is felt apparently that he is not taking his meds the way he is supposed to. He reported to the diesel truck technician that he has someone that comes in and fills up an automated medication dispenser. He just puts his hands under it and it gives him his meds, but it doesn't sound like he knows if he took them today or not. He does not know who the person is that sets it up or when they come to do that. saline lock is started in right forearm by JONES Javier without diff. pt mary well. Education is given as documented. patient denies questions. pneumatics are on bilat calves. patient states "I think I don't like those from before." mary well at this time. call light is within reach. denies needs. Patient did deny allergies. Listed in his history, it states he has adverse reaction to heparin with thrombocytopenia. Report is given to JONES Javier.
--- NOTE | 2016-09-18 04:34 | NUR ---
Significant Event: Patient A/O x 3. Forgetful. Denies N/T. Denies dizziness or blurred vision. Headache to frontal lobe at times, relieved with tylenol. Given last at 1948. Up SBA. LS clear and dim on room air. BS active, BM this shift. SBPs- 140s. Afebrile. Follow up: Transpant coordinator called this shift, requested a copy of discharge summary and med list to be sent to them. She is concerned about his home health care. She also requested labs to be drawn. Labs listed on note in chart for MD to address. Number for log operations coordinator is [phone]. Placement?
[2016-09-18 05:20] LABS: ALBUMIN 3.6 gm/dL (3.5-5.0); ALK PHOS 88 IU/L (33-138); ALT 17 IU/L (12-78); ANION GAP 10.3 (10.0-19.0); AST 8 IU/L (10-40); BLOOD UREA NITROGEN 26 mg/dL (6-24); CALCIUM 8.9 mg/dL (8.5-10.5); CHLORIDE 108 mMol/L (96-110); CO2 25 mMol/L (22-32); CREATININE 0.9 mg/dL (0.6-1.3); ESTIMATED GFR (MDRD EQUATION) > 60; POTASSIUM 3.3 mMol/L (3.7-5.1); SODIUM 140 mMol/L (135-145); TOTAL BILIRUBIN 0.4 mg/dL (0.0-1.5); TOTAL PROTEIN 6.7 g/dL (6.0-8.4)
[2016-09-18 13:01] LABS: BILIRUBIN URINE NEGATIVE (NEGATIVE); BLOOD URINE NEGATIVE /UL (NEGATIVE); COLOR URINE YELLOW (YELLOW); GLUCOSE URINE NEGATIVE (NEGATIVE); KETONE URINE NEGATIVE (NEGATIVE); LEUKOCYTES URINE NEGATIVE /UL (NEGATIVE); NITRITE URINE NEGATIVE (NEGATIVE); PROTEIN URINE NEGATIVE (NEGATIVE); SPEC GRAVITY URINE 1.015 (1.003-1.035); TURBIDITY URINE CLEAR (CLEAR); UROBILINOGEN URINE NORMAL (NORMAL)
--- NOTE | 2016-09-18 14:42 | NUR ---
Consult that someone from the transplant team wanted a phone call from care management in re:to Justin and his [facility]. I called the phone number to the transplant team, , left my information and was told someone would call me back. In the mean time, I reviewed Justin information. I am familiar with him from his recent stays at [facility]. Justin lives here in [place], [facility] [address]. He has [facility] following. I confirmed this with Ally at [facility] this morning. She tells me that Justin is seen by RN [facility] 3xs per week and she physically went out herself yesterday morning and saw Justin. From what she could tell, he has been taking his medications how he is supposed to. He uses an electronic pill box that reminds him to take his meds. From what she can recall there haven't been leftover pills or anything of concern to her or the staff to indicate that he isn't taking his pills. Ally states that they will continue to follow when he goes home this time as well. Plan to keep her updated to when he dismisses. I left a VM with Roopa at [facility] to see if she had been working with him or his friend Maya in re:getting him to [facility] or SNF at all. Roopa has not yet returned my phone call. Also phoned over to [facility] and [facility] to see if either of them had any Medicaid Waiver beds at this time. Roopa from [place] and Paulina from [facility] both report they are full. I left Justin name on both of their waiting lists and asked that they call me if/when something come open. Evy from the Transplant Team called me back to let me know that their questions had been answered by the night RN last night and she wasn't needing any assistance from me at this time. Will go and visit with [facility] tomorrow [facility] to dismissing back to home with [facility] or [facility] or SNF. CM to continue to follow and assist.
--- NOTE | 2016-09-18 16:32 | NUR ---
Significant Event: Patient alert and oriented x3. Short term memory issues. Will ask repetitive questions. This morning patient did not remember getting a liver transplant back in July, however, this afternoon he is very well aware of the fact that he had a liver transplant and states that he is not feeling "as fuzzy" as before. VSS, on room air. Voids per bathroom. Has transverse abdominal scar from liver transplant surgery. Tylenol and oxycodone given for headache. Lidocaine patch on for back pain. IV to R) FA, saline locked. Follow up: VS/neuros q 4 hours. Up with SBA. Regular diet. Hazardous drugs.
--- NOTE | 2016-09-19 06:39 | NUR ---
Significant Event: A/Ox3. VSS. Ambulates SBA to bathroom. Takes Oxycodone for pain 5mg prn. C/O headache this am 10/10 and physician notified. After medication pain was reduced to 4/10. Liver transplant in July. Lidocaine patch removed last night. IV R)forearm SL. Follow up:
--- NOTE | 2016-09-19 16:16 | NUR ---
Significant Event: Patient is A&O x3 but is very forgetful. He can answer all orientation questions appropriatly but repeats himself and states that he knows he is confused. Follows commands. Equal strength in all extremities. Denies numbness & tingling. Pupils equal & brisk. Complains of a frontal headache that comes and goes. Last gave him Tylenol & Oxycodone at 1116 with relief noted. IV to R) FA SL. Up with SBA and gait belt. Has had a recent liver transplant and has a healing incision to his abdomen open to air. Cooperative with cares. Follow up: Monitor neuro.
--- NOTE | 2016-09-20 04:43 | NUR ---
Significant Event: The patient is Alert and Oriented x3. Denies Numbness and Tingling. Moves all extremities spontaneously and to command. Up with SBA. VSS. On 2L oxygen per NC. Left lung is diminished and the right lung was clear. Incision to his Left chest and back open to air and well approximated. Dressing to the left chest from an old Chest tube site, due not remove per MD order. Generalized edema. PIV to the Right forearm infusing Dilaudid LEAD BI DEVELOPER 0.2 mcg demand only, With a Q 6 Minute Lockout, IVF running at TKO with it. No shower until Chest Tube dressing comes off and MD gives the OK. Follow up:
--- NOTE | 2016-09-20 04:52 | NUR ---
Significant Event: The patient is Alert and Oriented x3. Denies Numbness and Tingling. Moves all extremities spontaneously and to command. Up with SBA. VSS. On room air. Complaints of a headache and back pain gave Tylenol and oxycodone at 0404. PIV to the Right Forearm saline locked. Old incision to his Abdomen from liver transplant healing. A little forgetful at times. Follow up:
[2016-09-20 05:56] LABS: ANION GAP 11.5 (10.0-19.0); BLOOD UREA NITROGEN 27 mg/dL (6-24); CHLORIDE 106 mMol/L (96-110); CO2 24 mMol/L (22-32); ESTIMATED GFR (MDRD EQUATION) > 60; POTASSIUM 3.5 mMol/L (3.7-5.1); SODIUM 138 mMol/L (135-145)
--- NOTE | 2016-09-20 16:36 | NUR ---
Significant Event:Patient is alert and oriented times three. Very forgetful. PERRLA. CSM intact. Denies numbness or tingling. Moves extremities spontaneously and on command. Equal strength noted throughout. VSS on room air. NSR on telemetry. Lungs clear throughout. Bowel sounds active. Patient voids per the bathroom with standby assist. Incision to abdomen from prior Liver Transplant is intact. Patient refused calf pumps. No complaints of pain. Patient takes medications 2 at a time with water. Peripheral IV to the right forearm is saline locked. Patient tolerates a regular diet. Follow up:
--- NOTE | 2016-09-21 02:13 | NUR ---
Significant Event:Patient alert and ox3. Easily forgetful and struggles more with short term memory. Up with STBA. C/o headache with oxicodone given x1 at 1916. PIV saline locked. States no Numb/Tingling. Moves all extremeties spontaneously and to command. Did get a little bradycardic when sleeping, down to the mid 50's. Healing incision to rt side abdomen. Follow up:Monitor for pain.
--- NOTE | 2016-09-21 19:02 | NUR ---
Significant Event: A/O X3, forgetful, refuses SCD's. saline lock R)FA, up several times in room, ambulates in fuller, SBA, voids per toilet, Ashen color. good appetite. Follow up: plan for [facility] vs home w/ [facility] continuing
--- NOTE | 2016-09-21 22:22 | NUR ---
Patient alert and ox3. Easily forgetful, will ask if he has eaten his meals etc. Up with STBA. No c/o pain. PIV saline locked. Able to move all extremeties to command and spontaneously. States no numb/tingling. Healing incision to right abdomen from liver transplant done previously. Report given to Romeo GOLDMAN.
--- NOTE | 2016-09-22 03:34 | NUR ---
Significant Event: PATIENT IS A/O X3 BUT FORGETFUL. VSS. HR 50-60'S. SBP 130-140'S. AFEBRILE. 02 SATS IN UPPER 90'S ON RA. C/O HEADACHE. MENG AND 500MG TYLENOL GIVEN X1 WITH SOME RELIEF. LUNGS CLEAR THROUGHOUT. UP WITH SBA TO RESTROOM. FORGETS LIMITATIONS. BED ALARM ON. BOWELS HYPERACTIVE. PATIENT STATES BM X1. VOIDS PER RESTROOM. RIGHT MID ABDOMEN INSCISION HEALING WITH EDGES APPROXIMATED. IV TO RIGHT FOREARM SL. Follow up: CONTINUE TO MONITOR. WAITING ON PLACEMENT.
[2016-09-22 06:39] LABS: BASOPHIL % 0.5 %; EOSINOPHIL # 0.1 K/uL (0.0-0.5); EOSINOPHIL % 2.3 %; HEMATOCRIT 30.3 % (37.0-53.0); HEMOGLOBIN 10.2 g/dL (12.0-17.0); IMMATURE GRANULOCYTE % 0.4 %; LYMPHOCYTE # 1.3 K/uL (0.8-4.0); LYMPHOCYTE % 22.9 %; MCH 29.1 pg (27.0-34.0); MCHC 33.7 gm/dL (32.0-36.5); MCV 86.6 fl (83.0-98.0); MONOCYTE # 0.5 K/uL (0.0-1.0); MONOCYTE % 8.2 %; MPV 10.1 fl (9.4-12.4); NEUTROPHIL # (ANC) 3.8 K/uL (1.4-9.0); NEUTROPHIL % 65.7 %; NRBC % 0 /100WBC (0-0.00); PLATELET COUNT 177 K/uL (150-450); RDW-CV 17.5 % (11.9-14.6); WBC 5.7 K/uL (4.0-11.0)
[2016-09-22 07:00] LABS: ALBUMIN 3.8 gm/dL (3.5-5.0); ALK PHOS 124 IU/L (33-138); ALT 36 IU/L (12-78); ANION GAP 9.9 (10.0-19.0); AST 7 IU/L (10-40); BLOOD UREA NITROGEN 33 mg/dL (6-24); CALCIUM 9.1 mg/dL (8.5-10.5); CHLORIDE 104 mMol/L (96-110); CO2 29 mMol/L (22-32); ESTIMATED GFR (MDRD EQUATION) > 60; POTASSIUM 3.9 mMol/L (3.7-5.1); SODIUM 139 mMol/L (135-145); TOTAL PROTEIN 6.8 g/dL (6.0-8.4)
[2016-09-22 07:05] LABS: TOTAL BILIRUBIN 0.3 mg/dL (0.0-1.5)
--- NOTE | 2016-09-22 11:14 | NUR ---
A-NUTRITION F/U MID ABD. INCISION HEALING. (+)BM. LABS: NA 139, K+ 3.9, GLU 87, BUN 33, DIGITAL MEASUREMENT ADVISOR 1.0, ALB 3.8 MEDS: ROXICODONE, COREG, BACTRIM DIET RX: REGULAR W/ENSURE ENLIVE BID. PO INTAKE HAS BEEN GOOD; 75-100%. EST NUTR NEEDS: [id number] KCALS AND 85-107 GM PROTEIN D-AT NUTRITION RISK W/UNINTENTIONAL WT LOSS R/T INADEQUATE ENERGY INTAKE, FLUID DECREASE AEB 19% WT LOSS SINCE 06/20 ADMIT I-CONTINUE W/ENSURE ENLIVE BID TO PROVIDE ADDITIONAL NUTRIENTS M/E-GOAL: PO INTAKE >/=75% FOR DURATION OF ADMIT 1)F/U PO INTAKE, SUPPLEMENT, AND POC IN 3-5 DAYS 2)ASSIST NEEDED
--- NOTE | 2016-09-22 14:16 | NUR ---
Call to Justin' sister, Nikia [phone], to talk with her about potential dismissal plans for Justin. Nikia tells me that she stayed with Justin for a month after his liver transplant, but has since not been staying with him. She is in the process of moving to [place], but states she calls him everday to check in on him. "I am moving but once I am moved and settled in, I am more than happy to come back and help him out or stay with him for a short time if I need to." I asked her what all she had done as far as trying to get Justin into an LAURE up to this point. Nikia says that she has done nothing to try to get cinthya into an LAURE. I gave her the information to both the [employer] and [facility] on Aging so she could use them as resources after Justin was dismissed. She states she is going to try to get ahold of both agencies today to see what they can help her on as far as getting Justin into an LAURE goes. I also let her know that we would most likely plan on Justin going back home with [facility] through [facility] (RN, SW and ST) services. Nikia was fine with this. Told her that I had Justin on the RETIREMENT waiting list for both [facility] and [facility] here in town. Nikia tells me that Maya checks in on him either via phone call or in person each day. She also says that his late girlfriends' son, Mehul, stays there on the weekends with him and helps pay for rent. There is also an aunt of Jefferson that lives here in town that checks in on him as well. I encouraged Nikia to keep working on getting him into an LAURE and also told her she might have to check in the surrounding towns as well as Medicaid Waiver LAURE beds were often hard to find and took time. Nikia tells me that she will try to work with Maya and get Justin into an RETIREMENT as soon as she can. She denies any other further questions, needs or concerns. CM to continue to follow and assist. Plan home with [facility].
--- NOTE | 2016-09-22 17:42 | NUR ---
Significant Event: ALERT. SHORT TERM MEMORY. HAS TO REMINDED IF HE ATE OR TOOK HIS MEDS. AFEBRILE. HR 59-76. NEEDS HELP WITH ORDERING MEALS. GOOD APPETITE. RT. ABD. INCISION APPROX. WITHOUT REDNESS NOTED. CONT.ON ANTIREJECTOIN MEDS. Follow up: CONT. TO [facility]ITER. ORDERS FOR LABS TO BE FAXED TO [facility] TOMORROW.
[2016-09-23 04:56] LABS: BASOPHIL % 0.3 %; EOSINOPHIL # 0.1 K/uL (0.0-0.5); EOSINOPHIL % 1.4 %; HEMATOCRIT 31.9 % (37.0-53.0); HEMOGLOBIN 10.9 g/dL (12.0-17.0); IMMATURE GRANULOCYTE % 0.3 %; LYMPHOCYTE # 1.3 K/uL (0.8-4.0); LYMPHOCYTE % 18.6 %; MCH 29.1 pg (27.0-34.0); MCHC 34.2 gm/dL (32.0-36.5); MCV 85.3 fl (83.0-98.0); MONOCYTE # 0.6 K/uL (0.0-1.0); MONOCYTE % 8.1 %; MPV 9.8 fl (9.4-12.4); NEUTROPHIL % 71.3 %; NRBC % 0 /100WBC (0-0.00); PLATELET COUNT 195 K/uL (150-450); RBC 3.74 M/uL (4.00-6.00); RDW-CV 17.1 % (11.9-14.6); WBC 6.9 K/uL (4.0-11.0)
[2016-09-23 05:10] LABS: ALBUMIN 3.8 gm/dL (3.5-5.0); ALK PHOS 120 IU/L (33-138); ALT 30 IU/L (12-78); ANION GAP 12.9 (10.0-19.0); AST 8 IU/L (10-40); BLOOD UREA NITROGEN 32 mg/dL (6-24); CALCIUM 9.1 mg/dL (8.5-10.5); CHLORIDE 101 mMol/L (96-110); CO2 27 mMol/L (22-32); CREATININE 1.1 mg/dL (0.6-1.3); ESTIMATED GFR (MDRD EQUATION) > 60; POTASSIUM 3.9 mMol/L (3.7-5.1); SODIUM 137 mMol/L (135-145); TOTAL PROTEIN 6.8 g/dL (6.0-8.4)
[2016-09-23 05:11] LABS: TOTAL BILIRUBIN 0.5 mg/dL (0.0-1.5)
--- NOTE | 2016-09-23 05:18 | NUR ---
Patient A/Ox3 but can be forgetful. Independent in room. IV saline locked. Lungs clear. Bowel sounds present. Headache pain meds given, relief noted.
--- NOTE | 2016-09-23 11:10 | NUR ---
1110 Update called to Ally to let her know that Justin will most likely be dismissed today. She states that she was up on the floor and gathered all the information off the chart that she needed. I let her know that I would get dismissal orders off the chart when they were completed and also get the new F2F that was supposed to be filled out. I asked that we get RN, ST and SW on board when he goes home. Ally states that they can do this. Talked with Justin, he is fine with going home today. States that his friend Maya or someone should be able to pick him up. He has his phone here so he says he will call them to let them know. I also will call them once I have the final ok that he can go to make sure that Maya or someone can come and get him home. No other questions, needs or concerns. CM to continue to follow and assist.
--- NOTE | 2016-09-23 14:56 | NUR ---
Significant Event: A/O X 3. DOES HAVE SOME FORGETFUL MOMENTS. PT/OT/ST WORK WITH PATIENT. AFEBRILE. HR 57-75. AMBULATES IN HALLS WITH PT. GAIT STEADY. INDEPENDENT TO BATHROOM. HAD LRG. LOOSE STOOL. HELD LAXATIVES. SATS 95% ON ROOM AIR, NO RESP. DISTRESS. SBP 129-138. Follow up: PLAN DISM. TO [facility] TOMORROW IF STABLE TO GO.
--- NOTE | 2016-09-24 04:09 | NUR ---
Patient A/Ox3 but is forgetful at times. Independent in room. VSS on RA. Headache x1 pain meds given with relief. Lungs clear. Bowel sounds present. IV saline locked. To [facility] today.
[2016-09-24] MEDS ORDERED: NORVASC10 MG PO (11:18)
[2016-09-24] MEDS ORDERED: CITRACAL950 MG PO (11:20)
--- NOTE | 2016-09-24 13:22 | NUR ---
PT DISMISSED TO HOME WITH FRIEND TO DRIVE. AT TIME OF DC PT IS ALERT, STILL FORGETFUL AND REPEDATIVE. STEADY ON FEET WHEN HE'S UP, PLEASENT AND COOPERATIVE WITH CARES. LUNGS CLEAR AND DIMINISHED BASES, ABDOMEN SIFT AND NONTENDER WITH PRESENT BOWEL SOUNDS. PULSES STRONG HE HAS NO EDEMA. VSS. PLAN FOR HH TO COME SEE HIM THIS AFTERNOON AFTER HE GETS HOME. PRESCRIPTIONS, MEDICATIONS AND MEDICATION INSTRUCTIONS, FOLLOW UP CARE AND APPOINTMETS ALL WENT OVER WITH PT, BUT WILL ALSO LET FRIEND KNOW WHERE SHE PICKS HIM UP. W/C TO [facility] [employer] [facility] FOR DC TO HOME.
--- NOTE | 2016-09-24 14:09 | NUR ---
Call from JONES oCrrea at [facility] this morning, she tells me that right now they are not going to be able to take Renita. She did encourage family to keep in touch with her as she might be able to take him within the next week or so if they have another resident leave there. I noticed that Renita friend, Maya was in the radiology waiting room, so I stopped over to talk with her. Updated her to the above and let her know that [facility] can't take right now, so we would plan on Renita being able to go home today with [facility] to continue to follow with RN, and SW following. Maya was fine with this, states that she will be able to pick him up around 1330 to take him to his apartment. I left a VM with Ally at [facility] to update her that Renita was dismissing today and that orders has been faxed over to her. Told her to call with any additional questions. I updated JONES Claire and to all the above. states that he will see Renita again today and confirm that orders are fine and then he can go home. Let him know this was fine. I also got a call back from Renita' sister, Nikia, updated her to all the above. She is fine with the plan to go home with [facility] and then she will continue to follow up with ALFs here in [facility] in hopes to get him into one as soon as one of them has an opening. Nikia has all the phone number and contact names of all needed parties at the ALFs here in [place]. Encouraged her to try to think of who could help move his items into an LAURE when that time came. Let her know that moving companies here in [place] might be able to help him for a fee if they needed to go that route. She thanked me for my time and for the resources. Denied any other questions, needs or concerns. CM to continue to follow and assist. Plan home with [facility] to follow. Called and updated Roopa at [facility] to this as well. Renita is on the waiting list at [facility] and [facility].
== END 2016-09-24 13:28 | disposition home health service (06) ==
LOC: GICU 15:42 → GPCU 15:42
PROVIDERS: Family Medicine; Nurse Practitioner Family; Registered Nurse; ADMIT Internal Medicine
DX: R41.1 Anterograde amnesia (principal); G89.29 Other chronic pain; I10 Essential (primary) hypertension; G43.909 Migraine, unspecified, not intractable, without status migrainosus; G89.18 Other acute postprocedural pain; Z87.891 Personal history of nicotine dependence; Z79.899 Other long term (current) drug therapy; Z79.891 Long term (current) use of opiate analgesic; Z94.4 Liver transplant status; Z88.8 Allergy status to other drugs, medicaments and biological substances
CPT/HCPCS: G0378; G0379; J2060; J7507; J7512; J7517

== ENCOUNTER → 2016-09-17 | Outpatient (CLI) | payer MEDICAID ==
[2016-09-17 11:34] LABS: HEMATOCRIT 32.7 % (37.0-53.0); MCH 28.8 pg (27.0-34.0); MCHC 33.6 gm/dL (32.0-36.5); MCV 85.6 fl (83.0-98.0); MPV 10.9 fl (9.4-12.4); RBC 3.82 M/uL (4.00-6.00); RDW-CV 18.3 % (11.9-14.6); WBC 7.1 K/uL (4.0-11.0)
[2016-09-17 11:48] LABS: ALBUMIN 3.7 gm/dL (3.5-5.0); ALK PHOS 93 IU/L (33-138); ALT 17 IU/L (12-78); ANION GAP 11.5 (10.0-19.0); AST 6 IU/L (10-40); BLOOD UREA NITROGEN 24 mg/dL (6-24); CALCIUM 9.2 mg/dL (8.5-10.5); CHLORIDE 111 mMol/L (96-110); CO2 22 mMol/L (22-32); CREATININE 0.9 mg/dL (0.6-1.3); ESTIMATED GFR (MDRD EQUATION) > 60; MAGNESIUM 1.8 mg/dL (1.8-2.6); PHOSPHORUS 3.6 mg/dL (2.5-4.9); POTASSIUM 3.5 mMol/L (3.7-5.1); SODIUM 141 mMol/L (135-145); TOTAL BILIRUBIN 0.3 mg/dL (0.0-1.5)
== END | disposition disaster alternative care site (69) ==
LOC: LHHCN 11:00
PROVIDERS: Internal Medicine Gastroenterology
DX: Z94.4 Liver transplant status (principal); Z79.899 Other long term (current) drug therapy

== ENCOUNTER 2016-09-28 19:34 | Emergency (ER) | payer MEDICAID ==
--- NOTE | ~2016-09-28 | ER ---
PATIENT'S NAME: STACEY DAVID [facility] AGE: 46 Y [address] ROOM: [place] [address] LOCATION: [facility] ADMIT DATE: 09/28/2016 ER/Outpatient Report DISCHARGE DATE: 09/28/2016 FAMILY PHYSICIAN: Onesimo Castellon MD ATTENDING PHYSICIAN: Sonu Sullivan Time of Arrival: Time of Evaluation: Seen at 1945 hours. HISTORY OF PRESENT ILLNESS: The patient is a 46-year-old male with history of recent liver transplant. Transplant was done because of hepatitis C. The patient presents tonight to the emergency room feeling anxious and sad. The patient's concern is that certain foods that he eats have caused anxiety in the past and he relates the food to his anxiety. The patient has been treated in the past by Dr. Castellon with anxiety medication. MEDICAL HISTORY: ALLERGIES: HE HAS NO MEDICINAL ALLERGIES. HOME MEDICATIONS: See his copied list which was reviewed. MEDICAL HISTORY: Includes: 1. Hypertension. 2. Hepatitis C. PAST SURGICAL HISTORY: Surgeries: He had a liver transplant. SOCIAL HISTORY: Denies tobacco or alcohol. Does use drugs in the past but none lately. Currently, he is living by himself. REVIEW OF SYSTEMS: GENERAL: No fevers or chills. HEAD AND ENT: No complaints of severe headache or sore throat. RESPIRATORY: Denies any cough or shortness of breath. CARDIOVASCULAR: He has had no chest pain. No heart palpitations. GASTROINTESTINAL: Denies nausea or vomiting. Does have loose stools. GENITOURINARY: Urine has been normal color. He has no dysuria. MUSCULOSKELETAL: Just general weakness. Has been told to exercise, but he PATIENT'S NAME: STACEY DAVID [facility] AGE: 46 Y [address] ROOM: [place] [address] LOCATION: ED ADMIT DATE: 09/28/2016 ER/Outpatient Report DISCHARGE DATE: 09/28/2016 FAMILY PHYSICIAN: Onesimo Castellon MD ATTENDING PHYSICIAN: Sonu Sullivan has been unable to do so. NEUROPSYCHIATRIC: Feelings of sadness, anxiety, and difficulty concentrating. Denies any suicidal thoughts. PHYSICAL EXAMINATION: VITAL SIGNS: His initial blood pressure was 197/112, his temperature is 99.2, his respiratory rate 20, pulse 110, and his O2 saturations 96%. GENERAL APPEARANCE: Alert, appears somewhat under nourished. HEENT: Head; some mild temporal wasting is noted. Eyes; sclerae are clear. Pupils reactive to light. Nose; septum in midline. Mouth; oral membranes appeared moist. RESPIRATORY: Lung sounds clear peripherally. HEART: Rhythm appeared regular. ABDOMEN: Has a surgical scar, across his upper abdomen. Abdomen is just slightly tender. LABORATORY DATA: CBC, white count 6.5, hemoglobin 13.1. CMS; his potassium is slightly low at 3.5. His glucose is elevated at 138. His BUN is elevated at 32, and creatinine 1.4. Liver enzymes were normal. ASSESSMENT: 1. Anxiety. 2. Status post liver transplant. 3. History of hepatitis C. PLAN: The patient was given 1 mg of Ativan p.o. here in the emergency room. The patient's anxiety did improve within a half hour. The patient will be discharged to home with a script of Ativan 1 mg 3 times a day for 5 days. Encouraged the patient to increase his fluid intake. Walking program for exercise. Follow up with Dr. Castellon on Thursday or Thursday. REY MA FOR MD JACQUIE NORIEGA/cameronl /[id number] d: 09/28/16 2158 t: 10/06/16 1209, OUTPATIENT REPORT
[~2016-09-28 19:34] MED LIST changes: +CITRACAL950 MG PO; +NORVASC10 MG PO
[2016-09-28 20:16] LABS: BASOPHIL % 0.3 %; EOSINOPHIL % 0.2 %; HEMATOCRIT 36.4 % (37.0-53.0); HEMOGLOBIN 13.1 g/dL (12.0-17.0); IMMATURE GRANULOCYTE % 0.3 %; LYMPHOCYTE # 0.9 K/uL (0.8-4.0); MCH 29.6 pg (27.0-34.0); MCV 82.4 fl (83.0-98.0); MONOCYTE # 0.6 K/uL (0.0-1.0); MONOCYTE % 9.5 %; MPV 9.6 fl (9.4-12.4); NEUTROPHIL % 76.7 %; NRBC % 0 /100WBC (0-0.00); PLATELET COUNT 247 K/uL (150-450); RBC 4.42 M/uL (4.00-6.00); RDW-CV 16.2 % (11.9-14.6); WBC 6.5 K/uL (4.0-11.0)
[2016-09-28 20:32] LABS: ALBUMIN 4.6 gm/dL (3.5-5.0); ANION GAP 14.5 (10.0-19.0); CALCIUM 9.7 mg/dL (8.5-10.5); CREATININE 1.4 mg/dL (0.6-1.3); POTASSIUM 3.5 mMol/L (3.7-5.1); TOTAL BILIRUBIN 0.7 mg/dL (0.0-1.5)
== END 2016-09-28 20:55 | disposition disaster alternative care site (69) ==
LOC: GMED 19:34
PROVIDERS: Emergency Medicine
DX: F41.9 Anxiety disorder, unspecified (principal); I10 Essential (primary) hypertension; Z79.899 Other long term (current) drug therapy; Z86.19 Personal history of other infectious and parasitic diseases; Z94.4 Liver transplant status

== ENCOUNTER → 2016-09-29 | Outpatient (CLI) | payer MEDICAID ==
[~2016-09-29] MED LIST changes: +ATIVAN 1 MG1 MG PO; +HYDRODIURIL25 MG PO
[2016-09-29 09:44] LABS: HEMATOCRIT 35.2 % (37.0-53.0); HEMOGLOBIN 12.5 g/dL (12.0-17.0); MCH 29.8 pg (27.0-34.0); MCHC 35.5 gm/dL (32.0-36.5); MPV 9.5 fl (9.4-12.4); RBC 4.19 M/uL (4.00-6.00); RDW-CV 16.5 % (11.9-14.6); WBC 5.9 K/uL (4.0-11.0)
[2016-09-29 09:52] LABS: ALBUMIN 4.2 gm/dL (3.5-5.0); ANION GAP 13.7 (10.0-19.0); CALCIUM 9.4 mg/dL (8.5-10.5); CREATININE 1.3 mg/dL (0.6-1.3); MAGNESIUM 2.1 mg/dL (1.8-2.6); PHOSPHORUS 4.1 mg/dL (2.5-4.9); POTASSIUM 3.7 mMol/L (3.7-5.1); TOTAL BILIRUBIN 0.5 mg/dL (0.0-1.5); TOTAL PROTEIN 7.6 g/dL (6.0-8.4)
== END ==
LOC: LHHCN 09:27
PROVIDERS: Internal Medicine Gastroenterology
DX: Z94.4 Liver transplant status (principal)

== ENCOUNTER 2016-10-07 06:14 | Emergency (ER) | payer MEDICAID ==
--- NOTE | ~2016-10-07 | ER ---
PATIENT'S NAME: BRYANT [facility] AGE: 46 Y [address] ROOM: [place] [address] LOCATION: [facility] ADMIT DATE: 10/07/2016 ER/Outpatient Report DISCHARGE DATE: 10/07/2016 FAMILY PHYSICIAN: Onesimo Castellon MD ATTENDING PHYSICIAN: Moises Dailey Time of Arrival: 0608 hours. Time of Evaluation: 0608 hours. CHIEF COMPLAINT: Headache. HISTORY OF PRESENT ILLNESS: The patient is a 46-year-old male who presents to the emergency department today with a chief complaint of headache. He reports this started 1 hour prior to arrival. He describes it as sharp. He denies any fevers or chills. Does have some nausea. No vomiting, no shortness of breath, no cough, no chest pain. Pain is currently 6/10 in severity. He does not have a history of headaches in the past. He cannot remember headache like this. It all started within 1 hour. Denies any trauma. No fall. No injury. PAST MEDICAL HISTORY: C diff, hypertension, anxiety, hepatitis C, end-stage liver disease, esophageal varices, ascites, portal hypertension, depression, history of chronic alcohol abuse. PAST SURGICAL HISTORY: TIPS, multiple upper endoscopies, and liver transplant 1 month prior to arrival. SOCIAL HISTORY: The patient denies any tobacco, alcohol, or illicit drug use. ALLERGIES: NO KNOWN DRUG ALLERGIES. MEDICATIONS: Please see list. REVIEW OF SYSTEMS: All systems are reviewed by myself and are negative with the exception of those discussed in HPI and past medical history. PHYSICAL EXAMINATION: VITAL SIGNS: Weight 78.4 kg, blood pressure 197/107, pulse 85, respiratory PATIENT'S NAME: BRYANTSTACEY [facility] AGE: 46 Y [address] ROOM: [place] [address] LOCATION: [facility] ADMIT DATE: 10/07/2016 ER/Outpatient Report DISCHARGE DATE: 10/07/2016 FAMILY PHYSICIAN: Onesimo Castellon MD ATTENDING PHYSICIAN: Moises Dailey rate 18, temperature 97.2, oxygen saturation 99% on room air. GENERAL: The patient is a 46-year-old male, who appears older than stated age. HEENT: Normocephalic, atraumatic. Pupils are equal, round, and reactive to light. Extraocular motions are intact. Nares are patent bilaterally. TMs are clear. Oropharynx is clear. NECK: Supple. There is no nuchal rigidity. CARDIOVASCULAR: Regular rate and rhythm. No murmurs, rubs, or gallops. LUNGS: Clear to auscultation bilaterally. No wheezes, rales, or rhonchi. ABDOMEN: Soft, nontender, and nondistended. No rebound, rigidity, or guarding. Surgical incision sites on the liver transplant appeared clean, dry, and intact. NEUROLOGICAL: GCS 15. Alert and oriented x4. Cranial nerves 2 through 12 are intact. Normal [id number]. Normal rapid hand movement. Equal produce associate strength bilaterally. Downward going toes. No clonus. 2/4 reflexes. SKIN: Warm and dry. LABORATORY DATA AND X-RAYS: Labs and x-rays are obtained. CBC is unremarkable. PT and INR are unremarkable. CMP is unremarkable. LFTs are normal. CT scan of the brain is obtained. The results have been read by Radiology and shows no acute process. IMPRESSION: 1. Cephalgia. 2. Initial visit. EMERGENCY DEPARTMENT COURSE: The patient was brought back to the examination room. Seen and evaluated by myself. IV is established. Laboratory analysis and imaging are obtained as described above. The patient's headache onset was within 1 hour. It is different type of headache. It is not thunderclap and within [address] scan and there is exceedingly low risk of subarachnoid hemorrhage. I have asked they follow up with his primary care doctor in 2-3 days for re- evaluation. The patient's pain is significantly improved at this time. His blood pressure is improved. The patient is agreeable. He is without further questions at this time. DISPOSITION: The patient is discharged home in good condition. MOISES DAILEY DO PATIENT'S NAME: STACEY DAVID [facility] AGE: 46 Y [address] ROOM: [place] [address] LOCATION: [facility] ADMIT DATE: 10/07/2016 ER/Outpatient Report DISCHARGE DATE: 10/07/2016 FAMILY PHYSICIAN: Onesimo Castellon MD ATTENDING PHYSICIAN: Moises Dailey/cameronl /[id number] d: 10/07/16951 t: 10/08/16907, OUTPATIENT REPORT
[~2016-10-07 06:14] MED LIST changes: -ATIVAN 1 MG1 MG PO; -HYDRODIURIL25 MG PO
[2016-10-07 06:33] LABS: BASOPHIL % 0.2 %; EOSINOPHIL # 0.1 K/uL (0.0-0.5); EOSINOPHIL % 1.3 %; HEMOGLOBIN 11.6 g/dL (12.0-17.0); IMMATURE GRANULOCYTE # 0.1 K/uL (0.0-0.3); IMMATURE GRANULOCYTE % 1.2 %; LYMPHOCYTE # 1.2 K/uL (0.8-4.0); LYMPHOCYTE % 19.4 %; MCH 29.7 pg (27.0-34.0); MCHC 35.2 gm/dL (32.0-36.5); MCV 84.6 fl (83.0-98.0); MONOCYTE # 0.5 K/uL (0.0-1.0); MONOCYTE % 8.8 %; MPV 9.5 fl (9.4-12.4); NEUTROPHIL # (ANC) 4.2 K/uL (1.4-9.0); NEUTROPHIL % 69.1 %; NRBC % 0.5 /100WBC (0-0.00); PLATELET COUNT 164 K/uL (150-450); RDW-CV 16.4 % (11.9-14.6)
[2016-10-07 06:44] LABS: INR - (THERAPEUTIC) 0.94 (0.92-1.07); PROTIME 9.9 SECONDS (9.8-11.4); PTT 23 SECONDS (25-32)
[2016-10-07 06:49] LABS: ALBUMIN 3.7 gm/dL (3.5-5.0); ALK PHOS 88 IU/L (33-138); ALT 44 IU/L (12-78); ANION GAP 12.5 (10.0-19.0); AST 14 IU/L (10-40); BLOOD UREA NITROGEN 21 mg/dL (6-24); CHLORIDE 105 mMol/L (96-110); CO2 26 mMol/L (22-32); ESTIMATED GFR (MDRD EQUATION) > 60; POTASSIUM 3.5 mMol/L (3.7-5.1); SODIUM 140 mMol/L (135-145); TOTAL BILIRUBIN 0.4 mg/dL (0.0-1.5); TOTAL PROTEIN 6.7 g/dL (6.0-8.4)
== END 2016-10-07 08:27 | disposition disaster alternative care site (69) ==
LOC: GMED 06:14
PROVIDERS: Emergency Medicine
DX: R51 Headache (principal); I10 Essential (primary) hypertension; F32.9 Major depressive disorder, single episode, unspecified; F41.9 Anxiety disorder, unspecified; Z86.19 Personal history of other infectious and parasitic diseases; Z94.4 Liver transplant status; Z87.19 Personal history of other diseases of the digestive system; Z79.899 Other long term (current) drug therapy
CPT/HCPCS: J0780; J1200; J2270; J7030

== ENCOUNTER → 2016-10-07 | Outpatient (CLI) | payer MEDICAID | END | disposition disaster alternative care site (69) | LOC: GAMB 05:51 | DX: G43.909 Migraine, unspecified, not intractable, without status migrainosus (principal); B19.20 Unspecified viral hepatitis C without hepatic coma; I10 Essential (primary) hypertension; Z94.4 Liver transplant status; Z79.2 Long term (current) use of antibiotics; Z79.899 Other long term (current) drug therapy | CPT/HCPCS: A0425; A0429 ==

== ENCOUNTER → 2016-10-13 | Outpatient (CLI) | payer MEDICAID ==
[~2016-10-13] MED LIST changes: +ATIVAN 1 MG1 MG PO; +HYDRODIURIL25 MG PO
[2016-10-13 11:52] LABS: HEMATOCRIT 34.2 % (37.0-53.0); HEMOGLOBIN 12.1 g/dL (12.0-17.0); MCH 30.3 pg (27.0-34.0); MCHC 35.4 gm/dL (32.0-36.5); MCV 85.5 fl (83.0-98.0); MPV 10.3 fl (9.4-12.4); WBC 6.2 K/uL (4.0-11.0)
[2016-10-13 12:15] LABS: ALBUMIN 4.1 gm/dL (3.5-5.0); ALK PHOS 92 IU/L (33-138); ALT 30 IU/L (12-78); ANION GAP 13.6 (10.0-19.0); AST 10 IU/L (10-40); BLOOD UREA NITROGEN 27 mg/dL (6-24); CALCIUM 9.1 mg/dL (8.5-10.5); CHLORIDE 106 mMol/L (96-110); CO2 24 mMol/L (22-32); CREATININE 0.9 mg/dL (0.6-1.3); ESTIMATED GFR (MDRD EQUATION) > 60; MAGNESIUM 1.9 mg/dL (1.8-2.6); PHOSPHORUS 3.2 mg/dL (2.5-4.9); POTASSIUM 3.6 mMol/L (3.7-5.1); SODIUM 140 mMol/L (135-145); TOTAL PROTEIN 7.2 g/dL (6.0-8.4)
[2016-10-13 12:16] LABS: TOTAL BILIRUBIN 0.5 mg/dL (0.0-1.5)
== END ==
LOC: LHHCN 11:26
PROVIDERS: Internal Medicine Gastroenterology
DX: Z48.22 Encounter for aftercare following kidney transplant (principal); Z94.4 Liver transplant status; Z79.899 Other long term (current) drug therapy

== ENCOUNTER 2016-10-18 13:43 | Emergency (ER) | payer MEDICAID ==
--- NOTE | ~2016-10-18 | ER ---
PATIENT'S NAME: STACEY DAVID [facility] AGE: 46 Y [address] ROOM: [place] [address] LOCATION: [facility] ADMIT DATE: 10/18/2016 ER/Outpatient Report DISCHARGE DATE: 10/18/2016 FAMILY PHYSICIAN: Onesimo Castellon MD ATTENDING PHYSICIAN: Megha Morse Admission date and time documented in the medical record. I saw the patient at 1355 hours. CHIEF COMPLAINT: Headache, short-term memory problems, and jitteriness. HISTORY OF PRESENT ILLNESS: This patient is a 46-year-old male who came in by private vehicle to the emergency room for evaluation. He has had a 24-hour history of frontal headache. He continues to have short-term memory loss, it is not new. He has had a history of recent headaches. No nausea, vomiting, or diaphoresis. No recent colds, coughs, or flus. No lightheadedness, dizziness, syncope, or near syncope. No fall or trauma. No eyes, ears, nose, throat, neck, or spine pain. No chest pain or shortness of breath. No abdominal pain. No urinary symptoms. No joint or muscle swelling, redness, or pain. No skin eruptions or rash. Does have a history of C. diff with portal hypertension, esophageal varices, and ascites from end-stage liver failure. He had a liver transplant 2 months ago. Also had a past history of chronic alcoholism and illicit drug use. Does have a history of anxiety and depression. Does have history of encephalopathy related to his liver problems. No endocrine problems. Does have a history of anxiety and depression. HOME MEDICATIONS: See attached medication list. ALLERGIES: NONE. SOCIAL HISTORY: Nonsmoker and nondrinker. SIGNIFICANT PAST MEDICAL HISTORY: Ascites, esophageal varices, and portal hypertension secondary to end-stage liver failure from hepatitis C and chronic alcohol abuse. He had a liver transplant. He has a history of alcohol and illicit drug abuse. Anxiety, depression, left ventricular hypertrophy, C. diff colitis, and hypertension. OPERATIONS: Multiple esophagogastroduodenoscopies, TIPS procedure, and liver transplant. PATIENT'S NAME: STACEY DAVID [facility] AGE: 46 Y [address] ROOM: [place] [address] LOCATION: [facility] ADMIT DATE: 10/18/2016 ER/Outpatient Report DISCHARGE DATE: 10/18/2016 FAMILY PHYSICIAN: Onesimo Castellon MD ATTENDING PHYSICIAN: Megha Morse REVIEW OF SYSTEMS: All systems reviewed by me are negative with the exception of those discussed in the history of present illness. PHYSICAL EXAMINATION: VITAL SIGNS: Temperature 98.4, pulse 87, blood pressure 165/101, and O2 saturation on room air is 98%. HEAD: Normocephalic. No abrasion, contusion, laceration, or swelling of the scalp or face. EYES: Extraocular muscles intact. PERRL. EARS: Clear TMs bilaterally. NOSE: Clear. THROAT: Clear. Mucous membranes moist. Teeth, jaw intact. NECK: No nuchal rigidity. No findings of adenopathy. No carotid bruits. No tenderness. SPINE: Nontender. No deformity. LUNGS: Clear. Good air flow. No rales, rhonchi, or wheezes. HEART: Regular. Pulses are palpable. ABDOMEN: Soft. Some tenderness still from his recent surgery. Bowel tones present. No organomegaly or abnormal masses palpable. No CVA tenderness. EXTREMITIES: No peripheral edema, cyanosis, or deformity. NEUROVASCULAR: Intact. SKIN: Clear. No skin eruptions or rash. LABORATORY DATA: Procalcitonin was less than 0.05. Lactate was 3.2. Venous pH was 7.45. CMS was normal except for a slightly low sodium of 134, low CO2 content of 21, elevated glucose of 271, elevated BUN of 25, elevated creatinine of 1.5, low GFR of 56, CPK was 27, point of care cardiac enzymes were normal, CRP was less than 0.29, TSH was 0.708, proBNP was 100, serum ammonia level was 18. White count was 10,000, 87 segs, 6 lymphs, 5 monos, 1 eo, hemoglobin was 13 with hematocrit of 35.9, and platelet count was 200,000. PTT was 25, pro-time was 10.2 with an INR of 0.97. Urine showed 0 to 2 whites, rare reds, 2 to 5 epithelial cells, rare bacteria, 1+ amorphous material, 0 to 2 hyaline casts, nitrites negative on dipstick. EMERGENCY DEPARTMENT COURSE: I did give the patient 1 L of normal saline IV here in the emergency room. Gave him Benadryl 50 mg IV followed by Compazine 10 mg IV and Nubain 5 mg IV. IMPRESSION: 1. Headache. 2. Short-term memory problems and some shakiness. 3. Hypertension. PATIENT'S NAME: STACEY DAVID [facility] AGE: 46 Y [address] ROOM: [place] [address] LOCATION: ED ADMIT DATE: 10/18/2016 ER/Outpatient Report DISCHARGE DATE: 10/18/2016 FAMILY PHYSICIAN: Onesimo Castellon MD ATTENDING PHYSICIAN: Megha Morse 4. Past history of end-stage liver failure secondary to hepatitis C and chronic alcohol abuse. The patient had portal hypertension, ascites, and esophageal varices. 5. Anxiety and depression. 6. Past history of alcohol and illicit drug abuse. PLAN: The patient will be dismissed from the emergency room to home. Observation. Activity as tolerated. Continue present home medications and care. Good fluid intake. Good hydration. Balanced diet. Follow up with personal physician in 2 to 3 days for followup exam. Discussion ensued with the patient concerning my findings and recommendations. MEGHA MORSE MD SDS/modl /[id number] d: 10/18/16 2228 t: 10/19/16 0622, OUTPATIENT REPORT
[~2016-10-18 13:43] MED LIST changes: -ATIVAN 1 MG1 MG PO; -HYDRODIURIL25 MG PO
[2016-10-18 14:34] LABS: BICARBONATE 22.2 mmol/L (18.0-23.0); LACTATE 3.2 mEq/L (0.50-1.60); PCO2 32 mmHg (35-45); PO2 70 mmHg (80-90)
[2016-10-18 14:36] LABS: BASOPHIL % 0.3 %; EOSINOPHIL # 0.1 K/uL (0.0-0.5); HEMATOCRIT 35.9 % (37.0-53.0); IMMATURE GRANULOCYTE # 0.1 K/uL (0.0-0.3); IMMATURE GRANULOCYTE % 0.6 %; LYMPHOCYTE # 0.6 K/uL (0.8-4.0); MCH 30.1 pg (27.0-34.0); MCHC 36.2 gm/dL (32.0-36.5); MCV 83.1 fl (83.0-98.0); MONOCYTE # 0.5 K/uL (0.0-1.0); MONOCYTE % 4.7 %; NEUTROPHIL # (ANC) 8.8 K/uL (1.4-9.0); NEUTROPHIL % 87.4 %; NRBC % 0 /100WBC (0-0.00); PLATELET COUNT 200 K/uL (150-450); RBC 4.32 M/uL (4.00-6.00); RDW-CV 15.5 % (11.9-14.6)
[2016-10-18 14:40] LABS: BILIRUBIN URINE NEGATIVE (NEGATIVE); BLOOD URINE NEGATIVE /UL (NEGATIVE); COLOR URINE STRAW (YELLOW); GLUCOSE URINE 100 mg/dL (NEGATIVE); KETONE URINE NEGATIVE (NEGATIVE); LEUKOCYTES URINE 25 /UL (NEGATIVE); NITRITE URINE NEGATIVE (NEGATIVE); PROTEIN URINE NEGATIVE (NEGATIVE); TURBIDITY URINE CLEAR (CLEAR); UROBILINOGEN URINE NORMAL (NORMAL)
[2016-10-18 14:44] LABS: INR - (THERAPEUTIC) 0.97 (0.92-1.07); PROTIME 10.2 SECONDS (9.8-11.4); PTT 25 SECONDS (25-32)
[2016-10-18 14:48] LABS: AMORPHOUS URINE 1+ (NEGATIVE); BACTERIA URINE RARE (NEGATIVE); HYALINE CAST URINE 0-2 #/LPF (NEGATIVE); RBC URINE RARE #/HPF (NEGATIVE); WBC URINE 0-2 #/HPF (NEGATIVE)
[2016-10-18 14:57] LABS: ALBUMIN 4.4 gm/dL (3.5-5.0); ALK PHOS 99 IU/L (33-138); ALT 23 IU/L (12-78); AST 11 IU/L (10-40); BLOOD UREA NITROGEN 25 mg/dL (6-24); CALCIUM 9.1 mg/dL (8.5-10.5); CHLORIDE 101 mMol/L (96-110); CO2 21 mMol/L (22-32); CPK 27 IU/L (35-332); CREATININE 1.5 mg/dL (0.6-1.3); SODIUM 134 mMol/L (135-145); TOTAL BILIRUBIN 0.5 mg/dL (0.0-1.5); TOTAL PROTEIN 7.7 g/dL (6.0-8.4)
== END 2016-10-18 16:05 | disposition disaster alternative care site (69) ==
LOC: GMED 13:43
PROVIDERS: Emergency Medicine
DX: R51 Headache (principal); R41.3 Other amnesia; R25.1 Tremor, unspecified; I10 Essential (primary) hypertension; F41.9 Anxiety disorder, unspecified; F32.9 Major depressive disorder, single episode, unspecified; Z87.19 Personal history of other diseases of the digestive system; Z94.4 Liver transplant status; Z86.19 Personal history of other infectious and parasitic diseases; Z95.828 Presence of other vascular implants and grafts; Z86.79 Personal history of other diseases of the circulatory system; Z98.890 Other specified postprocedural states
CPT/HCPCS: J0780; J1200; J2001; J2300; J7030

== ENCOUNTER 2016-10-24 16:01 | Emergency (ER) | payer MEDICAID ==
--- NOTE | ~2016-10-24 | ER ---
PATIENT'S NAME: [facility] AGE: 46 Y [address] ROOM: [place] [id number] LOCATION: [facility] ADMIT DATE: 10/24/2016 ER/Outpatient Report DISCHARGE DATE: 10/24/2016 FAMILY PHYSICIAN: Oensimo Castellon MD ATTENDING PHYSICIAN: Paulina Jarrett Time of Arrival: 1620 hours Time of Exam: 1650 hours CHIEF COMPLAINT: Headache. HISTORY OF PRESENT ILLNESS: The patient reports he has short-term memory loss, which is not new for him. He can't remember exactly when his headache started, but states that he has pain in the temporal areas bilaterally. He states he checked his blood pressure at home is elevated at 170/100. He describes the pain in the temporal area as being sharp and constant. Denies having any nausea, no vomiting. Denies any vision changes. Has not been ill in any way. Denies any trauma to his head. MEDICATIONS: On his chart and reviewed by me. ALLERGIES: HE HAS NO KNOWN ALLERGIES. PAST MEDICAL HISTORY: Short-term memory loss and end-stage liver disease causing portal hypertension, esophageal varices, and ascites. He did get a liver transplant in August 2016. Has a past history of alcohol and drug abuse, anxiety, depression, headaches, hypertension, hepatitis C. PAST SURGERIES: Includes liver transplant in August 2016. SOCIAL HISTORY: He denies any use of drugs and alcohol. Does not smoke. Dr. Castellon is his primary provider. ROS: Negative other than those mentioned in the HPI. PHYSICAL EXAMINATION: VITAL SIGNS: He weighed 77.9 kg, blood pressure is 180/106, pulse of 102, respirations 16, temperature of 97.5 tympanic, O2 sat was 96% on room air. PATIENT'S NAME: [facility] AGE: 46 Y [address] ROOM: [place], [place] [address] LOCATION: [facility] ADMIT DATE: 10/24/2016 ER/Outpatient Report DISCHARGE DATE: 10/24/2016 FAMILY PHYSICIAN: Onesimo Castellon MD ATTENDING PHYSICIAN: Paulina Jarrett GENERAL: He is awake, alert, and oriented x4. SKIN: [place], warm, and dry. RESPIRATIONS: Even and nonlabored. Pupils are equal, reactive to light. Extraocular movement is intact. Negative nystagmus. Oropharynx is clear. NECK: Supple. No lymphadenopathy. LUNGS: Lung sounds are clear throughout. HEART: Regular rate and rhythm. ABDOMEN: Soft, nondistended. Bowel sounds are present. EXTREMITIES: He moves all extremities strongly and equally. LABORATORY DATA AND X-RAYS: CBC is within normal limits. Chem panel: Sodium is 136, potassium is 4 with a chloride of 101. His BUN is 33 with a creatinine of 1.9. Cardiac enzymes are negative. Ammonia was 26. Lactate was 2.4 and procalcitonin was normal. IMPRESSION: 1. Headache. 2. Mild dehydration. EMERGENCY DEPARTMENT COURSE: Saline lock was initiated. Fluids of normal saline were started at a wide- open rate. After the initial bolus of fluids, he states he was feeling better. He was continuing to have some pressure of his temporal area of his head. Second liter of fluids was started. He was given Tylenol 1000 mg p.o. PLAN: Home, rest, fluids. Follow up with his primary provider in the next 2-3 days if symptoms persist or worsens. He verbalized understanding. GRETCHEN SHANE APRN FOR MD MELI KEATING/carlo /[id number] d: 10/25/16 0325 t: 10/26/16 1106, OUTPATIENT REPORT
[2016-10-24 17:28] LABS: BASOPHIL % 0.5 %; EOSINOPHIL % 0.4 %; HEMATOCRIT 38.7 % (37.0-53.0); HEMOGLOBIN 14.2 g/dL (12.0-17.0); IMMATURE GRANULOCYTE % 0.5 %; LYMPHOCYTE # 0.8 K/uL (0.8-4.0); LYMPHOCYTE % 9.5 %; MCH 30.1 pg (27.0-34.0); MCHC 36.7 gm/dL (32.0-36.5); MONOCYTE # 0.4 K/uL (0.0-1.0); MONOCYTE % 4.7 %; MPV 9.5 fl (9.4-12.4); NEUTROPHIL # (ANC) 7.2 K/uL (1.4-9.0); NEUTROPHIL % 84.4 %; NRBC % 0 /100WBC (0-0.00); RBC 4.72 M/uL (4.00-6.00); RDW-CV 15.1 % (11.9-14.6); WBC 8.5 K/uL (4.0-11.0)
[2016-10-24 17:29] LABS: PLATELET COUNT 257 K/uL (150-450)
[2016-10-24 17:37] LABS: INR - (THERAPEUTIC) 0.93 (0.92-1.07); PROTIME 9.8 SECONDS (9.8-11.4); PTT 25 SECONDS (25-32)
[2016-10-24 17:49] LABS: ALBUMIN 4.5 gm/dL (3.5-5.0); ALK PHOS 113 IU/L (33-138); ALT 29 IU/L (12-78); AST 13 IU/L (10-40); BLOOD UREA NITROGEN 33 mg/dL (6-24); CALCIUM 8.9 mg/dL (8.5-10.5); CHLORIDE 101 mMol/L (96-110); CO2 21 mMol/L (22-32); CPK 32 IU/L (35-332); CREATININE 1.9 mg/dL (0.6-1.3); SODIUM 136 mMol/L (135-145); TOTAL BILIRUBIN 0.5 mg/dL (0.0-1.5); TOTAL PROTEIN 8.1 g/dL (6.0-8.4)
== END 2016-10-24 19:28 | disposition disaster alternative care site (69) ==
LOC: GMED 16:01
PROVIDERS: Nurse Practitioner Family
DX: E86.0 Dehydration (principal); R51 Headache; I12.0 Hypertensive chronic kidney disease with stage 5 chronic kidney disease or end stage renal disease; N18.6 End stage renal disease; K76.6 Portal hypertension; F41.9 Anxiety disorder, unspecified; F32.9 Major depressive disorder, single episode, unspecified; I85.00 Esophageal varices without bleeding; B19.20 Unspecified viral hepatitis C without hepatic coma; R41.3 Other amnesia; Z94.4 Liver transplant status; Z79.899 Other long term (current) drug therapy
CPT/HCPCS: J7030

== ENCOUNTER → 2016-10-27 | Outpatient (CLI) | payer MEDICAID ==
[~2016-10-27] MED LIST changes: +ATIVAN 1 MG1 MG PO; +HYDRODIURIL25 MG PO
[2016-10-27 11:30] LABS: HEMATOCRIT 34.6 % (37.0-53.0); HEMOGLOBIN 12.2 g/dL (12.0-17.0); MCH 29.9 pg (27.0-34.0); MCHC 35.3 gm/dL (32.0-36.5); MCV 84.8 fl (83.0-98.0); MPV 9.8 fl (9.4-12.4); RBC 4.08 M/uL (4.00-6.00); RDW-CV 14.9 % (11.9-14.6); WBC 7.7 K/uL (4.0-11.0)
[2016-10-27 11:49] LABS: ALBUMIN 3.9 gm/dL (3.5-5.0); ALK PHOS 97 IU/L (33-138); ALT 22 IU/L (12-78); ANION GAP 12.2 (10.0-19.0); AST 8 IU/L (10-40); BLOOD UREA NITROGEN 23 mg/dL (6-24); CALCIUM 8.9 mg/dL (8.5-10.5); CHLORIDE 102 mMol/L (96-110); CO2 27 mMol/L (22-32); MAGNESIUM 1.9 mg/dL (1.8-2.6); POTASSIUM 3.2 mMol/L (3.7-5.1); SODIUM 138 mMol/L (135-145); TOTAL PROTEIN 7.1 g/dL (6.0-8.4)
[2016-10-27 11:50] LABS: TOTAL BILIRUBIN 0.3 mg/dL (0.0-1.5)
== END | disposition disaster alternative care site (69) ==
LOC: LHHCN 11:23
PROVIDERS: Internal Medicine Gastroenterology
DX: Z94.4 Liver transplant status (principal); Z79.899 Other long term (current) drug therapy

== ENCOUNTER 2016-10-31 04:13 | Emergency (ER) | payer MEDICAID ==
--- NOTE | ~2016-10-31 | ER ---
PATIENT'S NAME: STACEY DAVID [facility] AGE: 46 Y [address] ROOM: [place] [address] LOCATION: [facility] ADMIT DATE: 10/31/2016 ER/Outpatient Report DISCHARGE DATE: FAMILY PHYSICIAN: Onesimo Castellon MD ATTENDING PHYSICIAN: Sonu Sullivan Admission date and time documented in the medical record. I saw the patient at 0430 hours. CHIEF COMPLAINT: Frontal headache. HISTORY OF PRESENT ILLNESS: The patient is a 46-year-old male who comes in with a frontal headache. Does not remember how long that he has had it. He feels jittery. History of headaches. Recently underwent a liver transplant. HOME MEDICATIONS: See attached medication list. ALLERGIES: NONE. SOCIAL HISTORY: Nonsmoker, nondrinker. SIGNIFICANT PAST MEDICAL HISTORY: History of esophageal varices, portal hypertension, secondary end-stage liver failure for hepatitis C and chronic alcohol abuse accompanied with ascites, history of alcohol and illicit drug abuse, anxiety, depression, left ventricular hypertrophy, C. diff colitis, hypertension. OPERATIONS: Multiple esophagoduodenoscopies, TIPS procedure, liver transplant. REVIEW OF SYSTEMS: All systems reviewed by me are negative with the exception of those discussed in the history of present illness. PHYSICAL EXAMINATION: VITAL SIGNS: Temperature 96.4 tympanic, pulse 82, respirations 16, blood pressure 173/115, O2 saturation on room air is 97%. Ovalo Coma Scale was 15. HEAD: Normocephalic. EYES: Extraocular muscles intact. PERRL. PATIENT'S NAME: JOANN [facility] AGE: 46 Y [address] ROOM: [place] [address] LOCATION: [facility] ADMIT DATE: 10/31/2016 ER/Outpatient Report DISCHARGE DATE: FAMILY PHYSICIAN: Onesimo Castellon MD ATTENDING PHYSICIAN: Sonu Sullivan EARS, NOSE, THROAT: Clear. Mucous membranes moist. Teeth, jaw intact. NECK: No nuchal rigidity. No thyromegaly or cervical lymphadenopathy. LUNGS: Clear. HEART: Regular. Neurovascularly intact. SKIN: Clear. IMPRESSION: Headache. PLAN: The patient was given 1 L normal saline IV in the emergency room. Benadryl 50 mg IV in the emergency room followed 10 minutes later by Compazine 10 mg and Nubain 10 mg IV. The patient dismissed home. Observation. Activity as tolerated. Continue present home medications and care. Follow up with personal physician as needed. MD MELVIN NORIEGA/modl /[id number] d: 10/31/16 0452 t: 10/31/16 1821, OUTPATIENT REPORT
[~2016-10-31 04:13] MED LIST changes: -ATIVAN 1 MG1 MG PO; -HYDRODIURIL25 MG PO
[2016-10-31] MEDS ORDERED: HYDRODIURIL25 MG PO (19:11)
[2016-10-31] MEDS ORDERED: ZOFRAN4 MG PO (19:11)
[2016-10-31] MEDS ORDERED: ATIVAN 1 MG1 MG PO (19:13)
== END 2016-10-31 05:44 | disposition disaster alternative care site (69) ==
LOC: GMED 04:13
DX: R51 Headache (principal); I10 Essential (primary) hypertension; K76.6 Portal hypertension; K72.90 Hepatic failure, unspecified without coma; F41.9 Anxiety disorder, unspecified; F32.9 Major depressive disorder, single episode, unspecified; B19.20 Unspecified viral hepatitis C without hepatic coma; F10.21 Alcohol dependence, in remission; R18.8 Other ascites; Z87.19 Personal history of other diseases of the digestive system; Z98.890 Other specified postprocedural states; Z94.4 Liver transplant status; Z79.899 Other long term (current) drug therapy
CPT/HCPCS: J0780; J1200; J2300; J7030

== ENCOUNTER 2016-10-31 13:58 | Observation (INO) | payer MEDICAID ==
[~2016-10-31] VITALS: Ht 182.9 cm; Wt 75.9 kg
--- NOTE | ~2016-10-31 | ER ---
PATIENT'S NAME: STACEY DAVID [facility] AGE: 46 Y [address] ROOM: [place] [address] LOCATION: [facility] [place] ADMIT DATE: 10/31/2016 ER/Outpatient Report DISCHARGE DATE: FAMILY PHYSICIAN: Onesimo Castellon MD ATTENDING PHYSICIAN: Flaco Ochoa Time of Arrival: 1358 hours. Time of Evaluation: 1424 hours. ID: A 46-year-old male. CHIEF COMPLAINT: Dizziness. HISTORY OF PRESENT ILLNESS: The patient is a 46-year-old male who states that he got a pressure in his head, lightheadedness, feels like he is going to pass out and just does not feel right. He feels "jittery." He is not able to tell me for certain when this started. He said maybe yesterday, but then he thinks, he was here a couple of days ago for this. When in actuality, he was here at 04:30 this morning. He is a poor historian as he does suffer from some memory loss, but appears to be a little bit more confused today than when I have seen him in the past. PAST MEDICAL HISTORY: ALLERGIES: NO KNOWN DRUG ALLERGIES. CURRENT MEDICATIONS: 1. Hydrochlorothiazide 25 mg daily. 2. Bactrim b.i.d. Thursday and Thursday. 3. Prednisone 15 mg daily. 4. Lorazepam p.r.n. 5. Norvasc 10 mg daily. 6. Zofran 4 mg q.4 hours p.r.n. 7. Lasix 40 mg daily. 8. Calcitrate plus vitamin D. 9. Tacrolimus 4 mg b.i.d. apparently recently changed per the pharmacist. 10. Docusate 200 mg b.i.d. 11. CellCept 500 mg 2 tablets b.i.d. 12. Protonix 40 mg b.i.d. 13. Coreg 6.25 mg b.i.d. 14. Acyclovir 400 mg b.i.d. PATIENT'S NAME: STACEY DAVID [facility] AGE: 46 Y [address] ROOM: [place] [address] LOCATION: [facility] [place] ADMIT DATE: 10/31/2016 ER/Outpatient Report DISCHARGE DATE: FAMILY PHYSICIAN: Onesimo Castellon MD ATTENDING PHYSICIAN: Flaco Ochoa 15. Bisacodyl 10 mg b.i.d. 16. Cipro 500 mg q.a.m. MEDICAL PROBLEMS: 1. Alcoholic liver cirrhosis. 2. Esophageal varices. 3. Migraine headaches. 4. Forgetfulness. 5. Depression. 6. Anxiety. PREVIOUS SURGERIES: 1. Liver transplant. 2. EGDs. 3. TIPS procedure. SOCIAL HISTORY: The patient lost his long-term partner back in June. He is currently living by himself. Alcohol use, denies currently. Drug use, denies. Tobacco use, denies currently. FAMILY HISTORY: Diabetes. REVIEW OF SYSTEMS: All systems reviewed and are negative other than what is noted in the HPI. The patient did not state this, but Dr. Castellon said that he recently was sent to [facility] for evaluation, however, he apparently signed out AMA before he was officially seen and admitted. PHYSICAL EXAMINATION: VITAL SIGNS: Height 6 feet, 0 inches. Weight 79.8 kg. Blood pressure 170/108, orthostatic blood pressures lying 181/91, pulse 77, respirations 12, saturations 98%. Sitting 161/104, pulse 85, respirations 15, and saturations 99%. Standing 160/106, pulse 84, respirations 15, and saturations 98%. GENERAL: A 46-year-old male, in no acute distress. HEENT: Head: Normocephalic, atraumatic. Ears: TMs translucent both ears. Eyes: Pupils equal and reactive to light and accommodation. Extraocular movements intact. Nose: Mucosa pink. No lesions. Mouth: No lesions. Pharynx benign. NECK: Supple. No lymphadenopathy. LUNGS: Clear to auscultation. HEART: Regular rate and rhythm. ABDOMEN: Bowel sounds present. Soft, nondistended. No hepatosplenomegaly. No palpable masses. Minimal tenderness to deep palpation. PATIENT'S NAME: STACEY DAVID [facility] AGE: 46 Y [address] ROOM: [address] [address] LOCATION: [facility] [place] ADMIT DATE: 10/31/2016 ER/Outpatient Report DISCHARGE DATE: FAMILY PHYSICIAN: Onesimo Castellon MD ATTENDING PHYSICIAN: Smolik,Flaco J ABDOMEN: No rebound or guarding. SKIN: [place], warm, and dry. No lesions or rashes noted. NEURO: No focal deficit. EMERGENCY ROOM COURSE: The patient received 1 L of normal saline, Benadryl, Compazine and Nubain here in the emergency room. Cardiac enzymes are negative x1. UA is unremarkable. Ammonia level is 17. Hemoglobin 13.2, hematocrit 36.3, platelets 208. White count 6.3 with a normal differential. INR 0.94. Sodium 136, potassium 4.1, chloride 102, CO2 25, BUN 23, creatinine 1.4, blood sugar 130. Liver enzymes normal. Creatinine was 1.0 on 10/27/2016. UA negative. EKG no acute findings. Head CT without contrast, no acute findings per Dr. Becerra, radiologist. IMPRESSION AND PLAN: 1. Increasing acute confusional state. 2. Headache. 3. Alcoholic liver cirrhosis status post transplant. He could not tell me when the transplant was. I did talk with Dr. Priyanka Love, transplant surgeon on-call, who states that transplant was 3 months ago. She will contact [facility] to make sure that his medications are being done properly and they will make a followup appointment for him next week. After discussion with the patient, Dr. Csatellon, his primary care physician and myself was felt with his increasing confusion that we would admit him for observation overnight to ensure the safety prior to discharge. LIZ YOUNG MD CAR/modl /[id number] d: 10/31/16 2318 t: 11/04/16 0912, OUTPATIENT REPORT
--- NOTE | ~2016-10-31 | HP ---
PATIENT'S NAME: STACEY DAVID [facility] AGE: 46 Y [address] ROOM: [place] [address] [place] [facility] [place] DATE: 10/31/2016 History & Physical DISCHARGE DATE: FAMILY PHYSICIAN: Onesimo Castellon MD ATTENDING PHYSICIAN: Jeffry Ochoa DATE OF SERVICE: CHIEF COMPLAINT: Forgetfulness. HISTORY OF PRESENTING ILLNESS: This 46-year-old male with history of liver cirrhosis, status post liver transplant, hypertension, and chronic pain syndrome who came back to [facility] Emergency Room today with complaints of feeling unwell and forgetful. He has had a significant problem of memory loss over the course of the last year and since the of his significant other. He has had a couple of hospitalizations for the same and fairly extensive evaluations by Neurology. Today, this problem seemed to get worse and after discussing it with his sister the patient decided to come to the emergency room for definitive evaluation and management. On his arrival here, he reports he "just isn't right." He did actually recall seeing me at his last hospital stay in September. This was a significant improvement. He could not however remember what he had for breakfast this morning. He did complain of mild headache. Denied dizziness or nausea. He remembers eating lunch. Denies chest pain, shortness of breath, or abdominal pain. He stools normally and voids normally. Denies numbness, tingling, or weakness in his extremities or any other associated physical or constitutional complaints. ALLERGIES: HEPARIN CAUSES THROMBOCYTOPENIA. ILLNESSES: 1. Cirrhosis of the liver, status post liver transplant in July 2016. 2. History of alcohol abuse; currently, quit. 3. History of hepatitis C. 4. Anxiety, generalized. 5. Depression. 6. Essential hypertension. 7. Migraine headaches. CURRENT MEDICATIONS: 1. Acyclovir 400 mg p.o. b.i.d. PATIENT'S NAME: STACEY DAVID [facility] AGE: 46 Y [address] ROOM: [place] [address] [place]: [facility] [place]MIT DATE: 10/31/2016 History & Physical DISCHARGE DATE: FAMILY PHYSICIAN: Onesimo Castellon MD ATTENDING PHYSICIAN: Jeffry Ochoa 2. Amlodipine 10 mg p.o. daily. 3. Dulcolax 5 mg p.o. b.i.d. 4. Citracal 950 mg p.o. b.i.d. 5. Calcium with vitamin D3 one tab p.o. b.i.d. 6. Carvedilol 3.125 p.o. b.i.d. 7. Cipro 500 mg p.o. daily. 8. Colace 100 mg p.o. b.i.d. 9. Lasix 40 mg p.o. daily. 10. CellCept 500 mg p.o. b.i.d. 11. Nystatin 200,000 units p.o. t.i.d. 12. Oxycodone 5 mg p.o. b.i.d. 13. Protonix 40 mg p.o. daily. 14. MiraLAX 17 g p.o. daily. 15. Prednisone 20 mg p.o. daily. 16. Tacrolimus 7 mg p.o. b.i.d. FAMILY HISTORY: Significant for diabetes mellitus in his mother and father. SOCIAL HISTORY: He is unmarried and lives here in [facility]. He has a sister who provides some social support. He has a significant past history of polysubstance abuse including marijuana, IV drugs, and alcohol, but he has currently quit. He has been sober for a couple of years. Denies tobacco use. REVIEW OF SYSTEMS: As per HPI. All other organ systems reviewed and are negative. OBJECTIVE: VITAL SIGNS: Temperature 98.3, pulse 72, respirations 16, blood pressure 155/57, weight is 75.9 kilos, that is relatively stable over the last 3 month interval. GENERAL: He is anxious, but cooperative, seated in the bed, in no acute distress. He is oriented x2 (not oriented to time). SKIN: Supple, warm, dry, no obvious rashes. HEENT: Otherwise, normocephalic. Sclerae nonicteric. Pupils equal, round, and reactive to light and accommodation. Extraocular movements appear intact. Nasal turbinates normal in appearance. Oropharynx clear. Mucous membranes are pink and moist. NECK: Supple. No masses or adenopathy. No thyromegaly. No JVD. No carotid bruits are heard. CHEST: Chest wall is symmetrical. HEART: Regular without murmurs. LUNGS: Clear bilaterally. No wheezes or crackles are heard. ABDOMEN: Soft, nontender. Bowel sounds present. No mass or PATIENT'S NAME: STACEY DAVID [facility] AGE: 46 Y [address] ROOM: [id number] [place], [place] [address] LOCATION: [facility] [place]MIT DATE: 10/31/2016 History & Physical DISCHARGE DATE: FAMILY PHYSICIAN: Onesimo Castellon MD ATTENDING PHYSICIAN: Jeffry Ochoa hepatosplenomegaly. and RECTAL: Not done. EXTREMITIES: Display no clubbing, cyanosis, or edema. NEUROLOGICAL: Anxious, but no focal deficits. LABORATORY AND X-RAY DATA: A 12-lead EKG shows normal sinus rhythm without any acute abnormalities. CBC showed a white blood cell count 6.3 hemoglobin is 13.2, hematocrit is 36.3, and platelets 208. Chemistries reveal BUN and creatinine 23 and 1.4 respectively, sodium and potassium of 136 and 4.1, chloride and CO2 are 102 and 25, calcium is 9.6, AST and ALT 12 and 32, bilirubin 0.6, glucose was 130, PT and PTT 9.9 and 25 respectively, INR was 0.94. Urinalysis grossly unremarkable. ASSESSMENT AND PLAN: 1. Confusion, difficult to characterize. He does have an element of anterograde amnesia, but he is not frankly encephalopathic. He is actually fairly high functioning and able to manage self-cares. We will admit for observation and consider reconsultation with Neurology. Alternatively, consider Psychiatry evaluation. We will hold off on any additional invasive evaluations at least for tonight. 2. Essential hypertension, suboptimal control. We will utilize p.r.n. hydralazine. Plan to resume his home medication regimen. 3. Status post liver transplant. He is substance free and stable on chronic immunosuppressive therapy with CellCept and Prograf. The case had been discussed with Dr. Priyanka Love on the transplant team by Dr. Jarrett. We will follow and consider Prograf levels if the transplant team desires. 4. Depression, he might benefit from SSRI therapy. 5. Esophageal varices, clinically stable, no evidence for bleeding. 6. Deep venous thrombosis prophylaxis. We will mobilize him and hold off on heparin or Lovenox in light of his history of thrombocytopenia. If he remains hospitalized more than a couple of days, we will consider anticoagulation. JEFFRY MD ADI MCKAY/carlo /[id number] D: [id number] T: [id number] HISTORY & PHYSICAL
--- NOTE | ~2016-10-31 | DS ---
PATIENT'S NAME: STACEY DAVID [facility] AGE: 46 Y [address] ROOM: [address] [address] LOCATION: [facility] [place] ADMIT DATE: 10/31/2016 Discharge Summary DISCHARGE DATE: 11/02/2016 FAMILY PHYSICIAN: Onesimo Castellon MD ATTENDING PHYSICIAN: Flaco Ochoa DISCHARGE DIAGNOSES: 1. Central nervous system dysfunction with memory loss. 2. Status post liver transplant for cirrhosis. 3. History of hepatitis C. 4. Anxiety. 5. Depression. 6. Essential hypertension. 7. Migraines. PROCEDURES: None. REASON FOR ADMISSION: His memory was to the point that he presented to the emergency room feeling unwell and forgetful. HOSPITAL COURSE: He was admitted by Dr. Ochoa on 10/31, under observation and really since that time I saw him the next day and he has been at baseline since that time just lying in bed, watching TV. I actually consulted Neurology and they said there is nothing else they can do inpatient and he just needs to have followup with Dr. Jackson at his outpatient clinic for them to look into this. He has had multiple hospitalizations for this issue, and since we were not able to work it up here I will ask him to see Dr. Jackson and I have also suggested he get off the Ativan if it is possible. That is associated with memory issues as well as falls and I think for him is a high risk medication. We will have him raise this issue with the liver transplant team when he sees them in followup on November 04 at the [facility] and we will take it from there. He will be discharged on meds per nursing med recon with the above med change noted, and diet and activity will be ad sabina. LABORATORIES: Chemistries were benign with normal electrolytes and normal kidney function. Creatinine was 1.3 and BUN was 26, which is minimally elevated, probably dehydration secondary to his headache. His white count was 6.1 with hemoglobin 12.6 and platelets 213. His urine dip negative for protein and nitrites, negative for glucose and ketones. He had only rare wbc's, rare rbc's in the urine. CT of the brain was done and apparently has not been read yet by the radiologist. I reviewed the CT myself and I see no obvious bleed or masses or midline shift that would preclude his leaving the PATIENT'S NAME: STACEY DAVID [facility] AGE: 46 Y [address] ROOM: [address] [address] LOCATION: [facility] [place] ADMIT DATE: 10/31/2016 Discharge Summary DISCHARGE DATE: 11/02/2016 FAMILY PHYSICIAN: Onesimo Castellon MD ATTENDING PHYSICIAN: Flaco Ochoa [facility] at this time. MD KYLE KEENE/modl /[id number] d: 11/03/16229 t: 11/04/162110, DISCHARGE SUMMARY
--- NOTE | ~2016-10-31 | CON ---
PATIENT'S NAME: STACEY DAVID [facility] AGE: 46 Y [address] ROOM: [place] [address] LOCATION: [facility] [place] ADMIT DATE: 10/31/2016 Consultation DISCHARGE DATE: FAMILY PHYSICIAN: Onesimo Castellon MD ATTENDING PHYSICIAN: Flaco Ochoa DATE OF CONSULTATION: 11/02/2016 TIME: 08:15 a.m. CHIEF COMPLAINT: Forgetfulness and headache. HISTORY OF PRESENT ILLNESS: This is a 46-year-old male, well known to the Neurology Clinic. He does have a history of liver stenosis and liver transplant this year. He also has hypertension and chronic pain syndrome. He went to the ER yesterday with complaints of feeling unwell and forgetful. He has been hospitalized with his memory loss several times over the past year. He has also had a in his life of a significant other. His neurology workup has included an EEG, which showed no epileptiform activity, and also an MRI of his brain, which was unremarkable. Those were not completed during this hospitalization, but happened since the first of the year. The patient states he is just not right. He was seen in September by Dr. Jackson, and he was recommended to follow up in the outpatient clinic so we can do a serial evaluation of his forgetfulness to see if there is any improvement or decline. He does state he has a constant headache which is frontal, and usually Tylenol takes the pain from a 7 down to a 2. He denies any vision changes, thunderclap headache, shortness of breath, chest pain, or any abdominal issues. He is eating and drinking normally and stooling fine. He denies any focal weakness, numbness, or tingling in his extremities. He has no other constitutional complaints. ALLERGIES: HEPARIN, WHICH CAUSES THROMBOCYTOPENIA. ILLNESSES: 1. Cirrhosis of the liver, status post liver transplant in July 2016. 2. History of alcohol abuse, has not drank for 1-1/2 years. 3. History of hepatitis C. 4. Anxiety, generalized. 5. Depression. 6. Essential hypertension. 7. Migraine headaches. PATIENT'S NAME: STACEY DAVID [facility] AGE: 46 Y [address] ROOM: [place] [address] LOCATION: [facility] [place] ADMIT DATE: 10/31/2016 Consultation DISCHARGE DATE: FAMILY PHYSICIAN: Onesimo Castellon MD ATTENDING PHYSICIAN: Flaco Ochoa CURRENT MEDICATIONS: Include: 1. Acyclovir 400 mg p.o. b.i.d. 2. Amlodipine 10 mg p.o. daily. 3. Dulcolax 5 mg p.o. b.i.d. 4. Citracal 950 mg p.o. b.i.d. 5. Calcium with vitamin D3 one tablet p.o. b.i.d. 6. Carvedilol 3.125 mg p.o. b.i.d. 7. Cipro 500 mg p.o. b.i.d. 8. Colace 100 mg p.o. b.i.d. 9. Lasix 40 mg p.o. daily. 10. CellCept 500 mg p.o. b.i.d. 11. Nystatin 2000 units p.o. b.i.d. 12. Oxycodone 5 mg p.o. b.i.d. 13. Protonix 40 mg p.o. daily. 14. MiraLAX 17 g p.o. daily. 15. Prednisone 20 mg p.o. daily. 16. Tacrolimus 7 mg p.o. b.i.d. FAMILY HISTORY: Significant for diabetes mellitus in his mother and father. SOCIAL HISTORY: He is unmarried and lives in [facility]. He does have a sister who provides some social support. He has a past history of polysubstance abuse including marijuana, IV drugs, and alcohol, but he has been abstaining for one year and a half. Denies tobacco use. REVIEW OF SYSTEMS: All systems were reviewed and are negative except as mentioned in the HPI. PHYSICAL EXAMINATION: VITAL SIGNS: Temperature 98.3, pulse 72, respirations 16, and blood pressure 160/62. Weight is 75.9 kg. GENERAL: He is anxious, but cooperative and lying in bed. He is in no acute distress. He is oriented x2. He does not know what month it is. HEENT: Normocephalic and atraumatic. Sclerae are nonicteric. CHEST: Chest wall is symmetrical. HEART: Regular, without murmurs. LUNGS: Clear bilaterally. No wheezes or crackles. NEUROLOGICAL: He is anxious. His cranial nerves 2 through 12 are intact. Sensation intact. Strength 5/5 to upper and lower extremities. DTRs 2+. He is able to walk around the room with no issues. ASSESSMENT AND PLAN: PATIENT'S NAME: STACEY DAVID [facility] AGE: 46 Y [address] ROOM: [place] [address] LOCATION: [facility] [place] ADMIT DATE: 10/31/2016 Consultation DISCHARGE DATE: FAMILY PHYSICIAN: Onesimo Castellon MD ATTENDING PHYSICIAN: Flaco Ochoa In summary, this patient has had a neurological workup in the recent past including MRI, EEG, and even a lab level to make sure he was taking his medications related to his transplant. There is nothing that we can find that suggests why he is having these memory issues. The best plan of care would be to have the patient follow up in the outpatient clinic so testing could be done on a serial basis to check if the patient was getting better or worse. In addition, it might be time to consider a prophylactic medication for his headaches and to quantify them as headaches versus migraines. We agree that the patient necessarily does not appear encephalopathic because some of his answers are quite sharp, and he is able to converse well. It just seems like some of his past history he is forgetting. We would like to thank you for the opportunity to see this patient, and please let us know if you have any questions. MARLENE ANTONY APRN FOR ADRIEN HANSEN MD PP/modl /[id number] d: 11/02/16 1136 t: 11/04/16 184, CONSULTATION REPORT
[2016-10-31 14:53] LABS: BASOPHIL % 0.6 %; EOSINOPHIL # 0.1 K/uL (0.0-0.5); EOSINOPHIL % 1.8 %; HEMATOCRIT 36.3 % (37.0-53.0); HEMOGLOBIN 13.2 g/dL (12.0-17.0); IMMATURE GRANULOCYTE % 0.5 %; LYMPHOCYTE # 0.6 K/uL (0.8-4.0); LYMPHOCYTE % 9.6 %; MCHC 36.4 gm/dL (32.0-36.5); MCV 82.5 fl (83.0-98.0); MONOCYTE # 0.3 K/uL (0.0-1.0); MONOCYTE % 4.8 %; MPV 9.5 fl (9.4-12.4); NEUTROPHIL # (ANC) 5.2 K/uL (1.4-9.0); NEUTROPHIL % 82.7 %; NRBC % 0 /100WBC (0-0.00); PLATELET COUNT 208 K/uL (150-450); RDW-CV 14.5 % (11.9-14.6); WBC 6.3 K/uL (4.0-11.0)
[2016-10-31 14:59] LABS: INR - (THERAPEUTIC) 0.94 (0.92-1.07); PROTIME 9.9 SECONDS (9.8-11.4); PTT 25 SECONDS (25-32)
[2016-10-31 15:08] LABS: ALBUMIN 4.6 gm/dL (3.5-5.0); ANION GAP 13.1 (10.0-19.0); CALCIUM 9.6 mg/dL (8.5-10.5); CREATININE 1.4 mg/dL (0.6-1.3); POTASSIUM 4.1 mMol/L (3.7-5.1); TOTAL PROTEIN 7.9 g/dL (6.0-8.4)
[2016-10-31 15:10] LABS: TOTAL BILIRUBIN 0.6 mg/dL (0.0-1.5)
[2016-10-31 15:51] LABS: BILIRUBIN URINE NEGATIVE (NEGATIVE); BLOOD URINE NEGATIVE /UL (NEGATIVE); COLOR URINE YELLOW (YELLOW); GLUCOSE URINE NEGATIVE (NEGATIVE); KETONE URINE NEGATIVE (NEGATIVE); LEUKOCYTES URINE 25 /UL (NEGATIVE); NITRITE URINE NEGATIVE (NEGATIVE); PROTEIN URINE NEGATIVE (NEGATIVE); SPEC GRAVITY URINE 1.005 (1.003-1.035); TURBIDITY URINE CLEAR (CLEAR); UROBILINOGEN URINE NORMAL (NORMAL)
[2016-10-31 15:59] LABS: CPK 38 IU/L (35-332)
[2016-10-31 16:14] LABS: BACTERIA URINE NEGATIVE (NEGATIVE); EPITHELIAL URINE 0-2 #/HPF (NEGATIVE); RBC URINE RARE #/HPF (NEGATIVE); WBC URINE RARE #/HPF (NEGATIVE)
[2016-10-31] MEDS ORDERED: HYDRODIURIL25 MG PO (19:11)
[2016-10-31] MEDS ORDERED: ZOFRAN4 MG PO (19:11)
[2016-10-31] MEDS ORDERED: ATIVAN 1 MG1 MG PO (19:13)
[2016-11-01 04:42] LABS: BASOPHIL % 0.7 %; EOSINOPHIL # 0.2 K/uL (0.0-0.5); EOSINOPHIL % 3.3 %; HEMOGLOBIN 12.6 g/dL (12.0-17.0); IMMATURE GRANULOCYTE % 0.5 %; LYMPHOCYTE # 1.4 K/uL (0.8-4.0); LYMPHOCYTE % 23.4 %; MCH 29.5 pg (27.0-34.0); MONOCYTE # 0.6 K/uL (0.0-1.0); MONOCYTE % 10.6 %; MPV 9.1 fl (9.4-12.4); NEUTROPHIL # (ANC) 3.7 K/uL (1.4-9.0); NEUTROPHIL % 61.5 %; NRBC % 0 /100WBC (0-0.00); PLATELET COUNT 213 K/uL (150-450); RBC 4.27 M/uL (4.00-6.00); RDW-CV 14.6 % (11.9-14.6); WBC 6.1 K/uL (4.0-11.0)
[2016-11-01 04:57] LABS: ALBUMIN 4.1 gm/dL (3.5-5.0); ANION GAP 14.7 (10.0-19.0); CALCIUM 9.3 mg/dL (8.5-10.5); CREATININE 1.3 mg/dL (0.6-1.3); POTASSIUM 3.7 mMol/L (3.7-5.1); TOTAL BILIRUBIN 0.5 mg/dL (0.0-1.5); TOTAL PROTEIN 7.3 g/dL (6.0-8.4)
== END 2016-11-02 15:05 | disposition disaster alternative care site (69) ==
LOC: GMED 13:58 → GMSU 16:44
PROVIDERS: Family Medicine; ADMIT Family Medicine
DX: G96.9 Disorder of central nervous system, unspecified (principal); R41.3 Other amnesia; I10 Essential (primary) hypertension; G89.4 Chronic pain syndrome; F32.9 Major depressive disorder, single episode, unspecified; F41.1 Generalized anxiety disorder; G43.909 Migraine, unspecified, not intractable, without status migrainosus; I85.00 Esophageal varices without bleeding; Z86.19 Personal history of other infectious and parasitic diseases; Z88.8 Allergy status to other drugs, medicaments and biological substances; Z79.899 Other long term (current) drug therapy; Z79.52 Long term (current) use of systemic steroids; Z79.2 Long term (current) use of antibiotics; Z94.4 Liver transplant status
CPT/HCPCS: G0378; J7517

== ENCOUNTER 2016-11-03 06:52 | Emergency (ER) | payer MEDICAID ==
--- NOTE | ~2016-11-03 | ER ---
PATIENT'S NAME: STACEY HERRERA [facility] AGE: 46 Y [address] ROOM: [place] [address] LOCATION: [facility] ADMIT DATE: 11/03/2016 ER/Outpatient Report DISCHARGE DATE: 11/03/2016 FAMILY PHYSICIAN: Onesimo Castellon MD ATTENDING PHYSICIAN: Ap Vallecillo CHIEF COMPLAINT: Headache and forgetfulness. HISTORY OF PRESENT ILLNESS: Mr. Herrera arrives by ambulance and states his blood pressure slightly elevated. Of note, he is approximately 3 months status post liver transplant. He was recently admitted to the hospital on Thursday for the exact same symptoms. He was discharged yesterday. He states he cannot remember the time he was discharged and is more forgetful and his headache is present. Review of the record indicates that he has not had any significant symptom relief for at least the last several weeks. He has been evaluated several times including head imaging and neurologic evaluation in the hospital. The symptoms seem to have started after his transplant and have been persistent. He is scheduled to see is transplant team tomorrow per his report. He was supposed to schedule followup with Neurology, but has not done so since discharge from the hospital. PAST MEDICAL HISTORY: Documented on the record and reviewed by me. SOCIAL HISTORY: Documented on the record and reviewed by me. MEDICATIONS: Documented on the record and reviewed by me. ALLERGIES: DOCUMENTED ON THE RECORD AND REVIEWED BY ME. REVIEW OF SYSTEMS: All systems reviewed and negative except as noted in the HPI. PHYSICAL EXAMINATION: VITAL SIGNS: Blood pressure 183/111, pulse 96, respiratory rate 24, temperature 98.9, SpO2 is 100% on room air. Pain is rated 8/10. Discharge vitals: Blood pressure 176/98, pulse 76, respiratory rate 16, temperature 98.9, SpO2 is 99% on room air. GENERAL: Age-appropriate male. No obvious pain. Mild distress but appears as anxiety. PATIENT'S NAME: STACEY HERRERA [facility] AGE: 46 Y [address] ROOM: [place] [address] LOCATION: [facility] ADMIT DATE: 11/03/2016 ER/Outpatient Report DISCHARGE DATE: 11/03/2016 FAMILY PHYSICIAN: Onesimo Castellon MD ATTENDING PHYSICIAN: Ap Vallecillo NEUROLOGIC: Awake and alert. There are no focal deficits. There is no asymmetry on exam. His gait is normal to my eye. His recall is a little fuzzy and he is not able to give definitive evaluation. GCS is 14. He is not oriented to time. HEENT: Normocephalic, atraumatic. Eyes are PERRL. Oropharynx is clear. NECK: Supple. Trachea is midline. CHEST: Heart is regular rate and rhythm. No murmurs. LUNGS: Initially tachypneic, markedly improved. No rhonchi, wheezes, or rales. ABDOMEN: Soft, nontender, and nondistended. Surgical site is intact with no evidence of infection. BACK: Normal to inspection and palpation. No CVA or paraspinal tenderness. EXTREMITIES: Warm and well perfused. SKIN: Clean, dry, and intact. LABORATORY DATA AND X-RAYS: Were obtained. No appreciable abnormalities of CBC, CMS, or thyroid studies. Slight elevation of creatinine at what appears to be baseline at 1.4. Labs and x-rays as above. IMPRESSION: Persistent headache with forgetfulness, chronic. EMERGENCY DEPARTMENT COURSE: The patient was seen and evaluated as above. He was given fluids, Compazine, Toradol, and Benadryl with improvement in his symptoms. I was able to speak with Dr. Abundio Hidalgo who took care of Mr. Herrera in the hospital over the last few days. He states that there is no change in Mr. Herrera's presentation today. He did personally actually see Mr. Herrera as well this morning. I do not think Mr. Herrera needs to be in the hospital. It is unfortunate that he is having these symptoms; however, I do not think there is anything hospitalization can do to help facilitate for him. I did discuss Mr. Herrera with Dr. Jackson and secured an appointment with him for at 3:30 in the afternoon at the clinic. Mr. Herrera also scheduled to see his transplant team tomorrow in [place]. He was able to leave the emergency department in good condition. We reinforced that he should not be taking his benzodiazepines. These are likely helping to contribute to his current presentation. All questions were answered and the patient was discharged. MD JORGE WOLFE/carlo PATIENT'S NAME: STACEY HERRERA [facility] AGE: 46 Y [address] ROOM: [place] [address] LOCATION: [facility] ADMIT DATE: 11/03/2016 ER/Outpatient Report DISCHARGE DATE: 11/03/2016 FAMILY PHYSICIAN: Onesimo Castellon MD ATTENDING PHYSICIAN: Ap Vallecillo /[id number] d: 11/03/16 1337 t: 11/18/16 0910, OUTPATIENT REPORT
[2016-11-03 07:46] LABS: BASOPHIL % 0.5 %; EOSINOPHIL # 0.2 K/uL (0.0-0.5); EOSINOPHIL % 3.6 %; HEMATOCRIT 34.6 % (37.0-53.0); HEMOGLOBIN 12.7 g/dL (12.0-17.0); IMMATURE GRANULOCYTE % 0.5 %; LYMPHOCYTE # 1.1 K/uL (0.8-4.0); LYMPHOCYTE % 16.6 %; MCH 29.3 pg (27.0-34.0); MCHC 36.7 gm/dL (32.0-36.5); MCV 79.7 fl (83.0-98.0); MONOCYTE # 0.7 K/uL (0.0-1.0); MONOCYTE % 11.1 %; MPV 9.1 fl (9.4-12.4); NEUTROPHIL # (ANC) 4.3 K/uL (1.4-9.0); NEUTROPHIL % 67.7 %; NRBC % 0 /100WBC (0-0.00); PLATELET COUNT 214 K/uL (150-450); RBC 4.34 M/uL (4.00-6.00); RDW-CV 14.1 % (11.9-14.6); WBC 6.3 K/uL (4.0-11.0)
[2016-11-03 08:02] LABS: ALBUMIN 4.3 gm/dL (3.5-5.0); ANION GAP 16.4 (10.0-19.0); CALCIUM 9.5 mg/dL (8.5-10.5); CREATININE 1.4 mg/dL (0.6-1.3); POTASSIUM 3.4 mMol/L (3.7-5.1); TOTAL BILIRUBIN 0.6 mg/dL (0.0-1.5); TOTAL PROTEIN 7.5 g/dL (6.0-8.4)
== END 2016-11-03 10:01 | disposition disaster alternative care site (69) ==
LOC: GMED 06:52
PROVIDERS: Emergency Medicine
DX: R51 Headache (principal); R41.3 Other amnesia; G89.29 Other chronic pain; I10 Essential (primary) hypertension; Z94.4 Liver transplant status
CPT/HCPCS: J0780; J1200; J1885; J7030

== ENCOUNTER → 2016-11-03 | Outpatient (CLI) | payer MEDICAID ==
[~2016-11-03] MED LIST changes: +ATIVAN 1 MG1 MG PO; +HYDRODIURIL25 MG PO
== END | disposition disaster alternative care site (69) ==
LOC: GAMB 06:37
DX: I95.9 Hypotension, unspecified (principal); B19.20 Unspecified viral hepatitis C without hepatic coma; I10 Essential (primary) hypertension; Z79.2 Long term (current) use of antibiotics; Z79.899 Other long term (current) drug therapy

== ENCOUNTER → 2016-11-10 | Outpatient (CLI) | payer MEDICAID ==
[2016-11-10 10:46] LABS: HEMATOCRIT 35.4 % (37.0-53.0); MCHC 36.7 gm/dL (32.0-36.5); MCV 81.6 fl (83.0-98.0); MPV 10.3 fl (9.4-12.4); RBC 4.34 M/uL (4.00-6.00); RDW-CV 13.8 % (11.9-14.6); WBC 6.6 K/uL (4.0-11.0)
[2016-11-10 10:59] LABS: ANION GAP 11.1 (10.0-19.0); CALCIUM 9.2 mg/dL (8.5-10.5); CREATININE 1.3 mg/dL (0.6-1.3); MAGNESIUM 1.9 mg/dL (1.8-2.6); PHOSPHORUS 2.7 mg/dL (2.5-4.9); POTASSIUM 3.1 mMol/L (3.7-5.1)
== END ==
LOC: LHHCN 10:31
PROVIDERS: Internal Medicine Gastroenterology
DX: T86.9 Complication of unspecified transplanted organ and tissue (principal)

== ENCOUNTER → 2016-11-24 | Outpatient (CLI) | payer MEDICAID ==
[2016-11-24 10:12] LABS: HEMATOCRIT 37.7 % (37.0-53.0); HEMOGLOBIN 13.4 g/dL (12.0-17.0); MCH 30.1 pg (27.0-34.0); MCHC 35.5 gm/dL (32.0-36.5); MCV 84.7 fl (83.0-98.0); MPV 9.4 fl (9.4-12.4); RBC 4.45 M/uL (4.00-6.00)
[2016-11-24 10:26] LABS: ALBUMIN 4.3 gm/dL (3.5-5.0); ANION GAP 11.8 (10.0-19.0); CALCIUM 9.3 mg/dL (8.5-10.5); CREATININE 1.2 mg/dL (0.6-1.3); MAGNESIUM 2.2 mg/dL (1.8-2.6); PHOSPHORUS 3.4 mg/dL (2.5-4.9); POTASSIUM 3.8 mMol/L (3.7-5.1); TOTAL BILIRUBIN 0.4 mg/dL (0.0-1.5); TOTAL PROTEIN 7.7 g/dL (6.0-8.4)
== END ==
LOC: LHHCN 10:01
PROVIDERS: Internal Medicine Gastroenterology
DX: Z48.23 Encounter for aftercare following liver transplant (principal); Z94.4 Liver transplant status; Z79.899 Other long term (current) drug therapy

== ENCOUNTER → 2016-12-15 | Outpatient (CLI) | payer MEDICAID ==
[2016-12-15 11:18] LABS: HEMATOCRIT 38.8 % (37.0-53.0); MCH 29.8 pg (27.0-34.0); MCHC 36.1 gm/dL (32.0-36.5); MCV 82.6 fl (83.0-98.0); MPV 9.7 fl (9.4-12.4); RBC 4.7 M/uL (4.00-6.00); RDW-CV 13.2 % (11.9-14.6); WBC 7.4 K/uL (4.0-11.0)
[2016-12-15 11:31] LABS: ANION GAP 11.6 (10.0-19.0); CALCIUM 9.5 mg/dL (8.5-10.5); CREATININE 1.5 mg/dL (0.6-1.3); MAGNESIUM 2.1 mg/dL (1.8-2.6); PHOSPHORUS 3.5 mg/dL (2.5-4.9); POTASSIUM 3.6 mMol/L (3.7-5.1)
== END ==
LOC: LHHCN 10:51
PROVIDERS: Internal Medicine Gastroenterology
DX: T86.9 Complication of unspecified transplanted organ and tissue (principal); Z94.4 Liver transplant status